=== PATIENT | female | born 1960 | race Caucasian/White ===

== ENCOUNTER 2022-10-03 08:32 | Outpatient (OUT) | payer MEDICARE, MEDICAID, SELFPAY ==
--- NOTE | 2022-10-03 08:30 | CA_ITS ---
Patient: SCOTT HERNANDEZ Exam Date: 10/03/2022 : 1960 Gender:F Ordering : DR MCKINLEY ARTEAGA M.D. Admission #: [id number] Family : RALEIGH RODRIGUEZ Order #: [id number] CLICK HERE TO VIEW EXAM ECHOCARDIOGRAM REPORT PROCEDURE: CA ECHO DOPPLER COMPLETE INDICATIONS: Interstitial lung disease, pulmonary hypertension, shortness of breath COMPARISON: None. DESCRIPTION: COMPLETE ECHOCARDIOGRAM Real-time transthoracic echocardiography with 2D, M-mode, spectral and color flow Doppler performed. QUALITY: Technically difficult due to patients condition. LEFT VENTRICLE: Normal chamber size. Normal left ventricular wall thickness. Normal systolic function. LV EF: Normal left ventricular ejection fraction, (>55%). DIASTOLIC: Normal diastolic function. ATRIAL SEPTUM: Visually appears intact. LEFT ATRIUM: Normal chamber size. RIGHT ATRIUM: Normal chamber size. RIGHT VENTRICLE: Normal chamber size. Normal right ventricular systolic function. TRICUSPID VALVE: Normal mobility and thickness. No stenosis with trivial regurgitation. No evidence of pulmonary hypertension. RVSP 29 mmHg MITRAL VALVE: Normal mobility and thickness. No evidence of mitral valve stenosis. There is no mitral annular calcification. Trivial mitral regurgitation. AORTIC VALVE: Normal trileaflet appearance. No visible sclerosis. Normal leaflet mobility. No evidence of aortic valve stenosis. No aortic regurgitation. AORTIC ROOT: Normal diameter and appearance. PULMONIC VALVE: Not well visualized. No stenosis. No regurgitation. PERICARDIUM: No evidence of pericardial effusion. IVC: Collapses with inspirations. IVC is mildly dilated (2.3 cm) PLEURA: CONCLUSION: 1. Normal left ventricular systolic function. LVEF is 55 to 60%. 2. Normal right ventricular size and systolic function. 3. No significant valvular dysfunction. 4. Normal right-sided pressures. 5. No pericardial effusion. 6. Technically difficult study with poor sound transmission. Adult Echocardiography Procedure Report Left Ventricle LVEDD (3.7 - 5.6 cm): 3.92 cm LVESD (2.2 - 4.0 cm): 2.52 cm LVIVS thickness (0.6 - 1.2 cm): 1.04 cm LVPW thickness (0.5 - 1.0 cm): 0.90 cm e': 0.09 m/s E - e': 9.92 LVOT Max Gradient: 6.52 mm[Hg] LVOT Area (cm2): 1.28 m/s Peak Velocity (LVOT): 1.28 m/s LVOT Diameter 2.05 cm Left Atrium LA Volume Index (2D A2C): 16.64 ml/m2 Left Atrium Systolic Dimension: 3.30 cm Mitral Valve MV E to A Ratio: 0.84 Mitral Valve A-Wave Peak Velocity: 1.09 m/s Mitral Valve E-Wave Peak Velocity: 0.91 m/s Right Ventricle Aorta AO Root Diam: 2.87 cm Aortic Valve AoV Area (Peak Brian): 3.38 cm2, 3.38 cm2 Peak Velocity(Antegrade Flow): 1.25 m/s Peak Gradient(Antegrade Flow): 6.27 mm[Hg] Tricuspid Valve Peak Velocity (Regurgitant Flow): 2.28 m/s Pulmonic Valve Mean Gradient: 1.34 mm[Hg], 1.44 mm[Hg] Mean Velocity: 0.52 m/s, 0.57 m/s Peak Velocity: 0.81 m/s, 0.87 m/s Peak Gradient: 3.01 mm[Hg], 2.62 mm[Hg], 2.62 mm[Hg] Right Atrium Dictated by: Hari Enciso M.D. on 10/04/2022 at 17:23 Approved by: Hari Enciso M.D. on 10/04/2022 at 17:27
== END 2022-10-03 08:33 | disposition home or self-care (01) ==
LOC: CARD 08:33
PROVIDERS: PCP Internal Medicine; Visit Provider Internal Medicine Rheumatology
DX: J84.10 Pulmonary fibrosis, unspecified (principal); I27.0 Primary pulmonary hypertension; R06.02 Shortness of breath; R06.00 Dyspnea, unspecified; M35.9 Systemic involvement of connective tissue, unspecified
CPT/HCPCS: 93306

== ENCOUNTER 2022-11-22 14:30 | Outpatient (OUT) | payer MEDICARE, MEDICAID, SELFPAY ==
--- NOTE | 2022-11-22 14:35 | CT_ITS ---
[address] [address] Patient Name: SCOTT HERNANDEZ MRN: [id number] date: 1960 Sex: F Assigned Patient Location: CT Current Patient Location: Accession/Order Number: [id number] Exam Date: 11/22/2022 14:45 Report Date: 11/23/2022 02:03 At the request of: ROSA LEDBETTER Procedure: CT chest wo con EXAMINATION: CT chest wo con HISTORY: Abnormal chest CT R93.89 COMPARISON: CT chest 11/22/2021 TECHNIQUE: Multi-planar CT images were obtained without and/or with IV contrast as indicated by examination type. Axial, Coronal, and Sagittal images. Dose reduction techniques were achieved by using automated exposure control and/or adjustment of mA and/or kV according to patient size and/or use of iterative reconstruction technique. FINDINGS: LUNGS: 2.9 x 2.6 x 1.7 cm irregularly marginated soft tissue mass within the posterior medial right upper lobe abutting the pleural surface, level of aortic arch. Stable 9 mm nodule versus scarring within lateral base of right upper lobe adjacent the minor fissure. Moderate emphysematous changes throughout the lungs. PLEURA: No mass, effusion, or pneumothorax. VASCULATURE: No abnormality. MITCH: No mass or adenopathy. MEDIASTINUM: No mass or adenopathy. CARDIAC: No enlargement, pericardial thickening, or significant calcification. AORTA: No aneurysm or dissection. CHEST WALL: No mass or axillary adenopathy. BONES: Old, healed posterior rib fractures. LIMITED ABDOMEN: No suspicious findings Limited images of the upper abdomen. OTHER: Negative. CT/CT chest wo con IMPRESSION: 1. New 2.9 cm mass within posterior medial right upper lobe adjacent the pleural surface and spine suspicious for neoplasm. 2. Stable 0.9 cm nodule or scarring within right upper lobe adjacent the minor fissure. 3. Complete clearing of the numerous previously seen small nodules/opacities. 4. Moderate emphysematous changes. 5. No lymphadenopathy. 6. Old, healed posterior rib fractures stable adjacent pleural scarring. Electronically authenticated by: SRINIVASAN KHALIL Date: 11/23/2022 02:03
== END 2022-11-22 14:31 | disposition home or self-care (01) ==
LOC: CT 14:30
PROVIDERS: PCP Internal Medicine; Visit Provider Internal Medicine Critical Care Medicine
DX: R93.89 Abnormal findings on diagnostic imaging of other specified body structures (principal)
CPT/HCPCS: 71250

== ENCOUNTER 2023-01-04 12:32 | Outpatient (OUT) | payer MEDICARE, MEDICAID, SELFPAY ==
--- NOTE | 2023-01-04 | XR_ITS ---
The [address] [address] Patient Name: SCOTT HERNANDEZ MRN: [id number] date: 1960 Sex: F Assigned Patient Location: [facility] Current Patient Location: [facility] Accession/Order Number: [id number] Exam Date: 01/04/2023 13:12 Report Date: 01/04/2023 22:16 At the request of: RALEIGH RODRIGUEZ Procedure: XR lumbar spine min 4V EXAM: XR lumbar spine min 4V HISTORY: Acute low back pain M54.50 COMPARISON: None. TECHNIQUE: 4 views lumbar spine FINDINGS: There are 5 nonrib bearing lumbar type vertebral bodies. Grade 1/2 anterolisthesis L5-S1 with pars defects at this level. Vertebral body heights are preserved. Multilevel degenerative disc disease is most severe at L5-S1. Mild facet arthrosis at the lower lumbar levels. Incidental note of aortic vascular calcification. Degenerative changes of the sacroiliac joints. Surgical clips project over the right upper quadrant. XR/XR lumbar spine min 4V IMPRESSION: Grade 1/2 anterolisthesis at L5-S1 with bilateral pars defects at this level. Multilevel degenerative disc disease most severe at L5-S1. Electronically authenticated by: RAFAEL ROSARIO Date: 01/04/2023 22:16
== END 2023-01-04 12:33 | disposition home or self-care (01) ==
LOC: RAD 12:38
PROVIDERS: PCP Internal Medicine; Visit Provider Internal Medicine
DX: M54.50 Low back pain, unspecified (principal); M51.37 Other intervertebral disc degeneration, lumbosacral region
CPT/HCPCS: 72110

== ENCOUNTER 2023-02-05 13:37 | Outpatient (OUT) | payer MEDICARE, MEDICAID, SELFPAY ==
--- NOTE | 2023-02-05 14:00 | CT_ITS ---
[address] [address] Patient Name: SCOTT HERNANDEZ MRN: [id number] date: 1960 Sex: F Assigned Patient Location: CT Current Patient Location: Accession/Order Number: [id number] Exam Date: 02/05/2023 13:50 Report Date: 02/06/2023 01:52 At the request of: ROSA LEDBETTER Procedure: CT chest wo con EXAMINATION: CT chest wo con HISTORY: Pulmonary Nodules R91.8 follow-up, chronic left flank pain COMPARISON: CT chest 11/22/2022, CT chest 11/22/2021 TECHNIQUE: Multi-planar CT images were obtained without and/or with IV contrast as indicated by examination type. Axial, Coronal, and Sagittal images. Dose reduction techniques were achieved by using automated exposure control and/or adjustment of mA and/or kV according to patient size and/or use of iterative reconstruction technique. FINDINGS: LUNGS: 3.4 x 1.8 x 3.7 cm mass versus consolidation within posterior right upper lobe adjacent the posterior chest wall. Moderate emphysematous changes bilaterally. Stable 10 mm nodule within lateral right upper lobe near minor fissure. PLEURA: No mass, effusion, or pneumothorax. VASCULATURE: No abnormality. MITCH: No mass or adenopathy. MEDIASTINUM: No mass or adenopathy. CARDIAC: No enlargement, pericardial thickening, or significant calcification. AORTA: No aneurysm or dissection. CHEST WALL: No mass or axillary adenopathy. BONES: Old healed rib fractures. No bone lesion or destructive process. LIMITED ABDOMEN: No suspicious findings Limited images of the upper abdomen. OTHER: Negative. CT/CT chest wo con IMPRESSION: 1. Stable to minimal increase in size of posterior right upper lobe mass versus consolidation. This overlies site of prior right rib fractures, but scarring is unlikely. Consider PET imaging for further evaluation. Electronically authenticated by: SRINIVASAN KHALIL Date: 02/06/2023 01:52
== END 2023-02-05 13:38 | disposition home or self-care (01) ==
LOC: CT 13:37
PROVIDERS: PCP Internal Medicine; Visit Provider Internal Medicine Critical Care Medicine
DX: R91.8 Other nonspecific abnormal finding of lung field (principal)
CPT/HCPCS: 71250

== ENCOUNTER 2023-02-05 13:38 | Outpatient (OUT) | payer MEDICARE, MEDICAID, SELFPAY ==
--- NOTE | 2023-02-05 14:00 | CT_ITS ---
The [address] [address] Patient Name: SCOTT HERNANDEZ MRN: [id number] date: 1960 Sex: F Assigned Patient Location: CT Current Patient Location: CT Accession/Order Number: [id number] Exam Date: 02/05/2023 13:50 Report Date: 02/05/2023 14:28 At the request of: DARSHAN MENDENHALL Procedure: CT abdomen pelvis wo con CT abdomen pelvis wo con, 02/05/2023 1:50 PM EDT INDICATION: History Of Kidney Stones Z87.442 COMPARISON: Prior CT of abdomen dated 03/24/2019. TECHNIQUE: Axial images of the abdomen were obtained after the administration of IV contrast. Multiplanar reformatted images were generated and reviewed as needed. Dose reduction techniques were achieved by using automated exposure control and/or adjustment of mA and/or kV according to patient size and/or use of iterative reconstruction technique. FINDINGS: Lungs: Right lower lobe dependent atelectasis is noted. Otherwise, the base of lungs is clear. No pleural effusion is noted. Liver and gallbladder: The liver is unremarkable. There is status post cholecystectomy. No enlargement of intra or extrahepatic biliary ducts. Genitourinary system: No hydronephrosis. No nephrolithiasis. No abnormality of the urinary bladder is noted. Other solid abdominal organs: adrenal glands, pancreas, and spleen are unremarkable. Aorta: The infrarenal abdominal aorta is nonaneurysmal. Free fluid: There is no free fluid in the abdomen pelvis. Lymph node: No lymph node enlargement by size criteria is noted. Stomach and Bowel: No abnormality of the stomach is noted. No abnormality of small or large bowel is noted. There is status post rectosigmoid surgery. Appendix is normal. A diverticulum within the fourth segment of duodenum is noted. Bone: There is no suspicious osteolytic or osteoblastic lesion. There is diffuse demineralization of bone. There is grade 1 anterolisthesis of L5 on S1. CT/CT abdomen pelvis wo con IMPRESSION: No nephrolithiasis. No significant abnormality to explain symptoms of the patient. Electronically authenticated by: VICENTA CHE Date: 02/05/2023 14:28
== END 2023-02-05 13:39 | disposition home or self-care (01) ==
LOC: CT 13:38
PROVIDERS: PCP Internal Medicine; Visit Provider Physician Assistant
DX: R91.8 Other nonspecific abnormal finding of lung field (principal); Z87.442 Personal history of urinary calculi
CPT/HCPCS: 71250; 74176

== ENCOUNTER 2023-05-27 10:53 | Outpatient (OUT) | payer MEDICARE, MEDICAID, SELFPAY ==
--- NOTE | 2023-05-27 10:56 | MM_ITS ---
Patient Name: SCOTT HERNANDEZ MR#: [id number] : 1960 Exam Date: 05/27/2023 Ordering Doctor: DR RALEIGH RODRIGUEZ RADIOLOGY REPORT PROCEDURE: MM TOMOSYNTHESIS SCREENING BI COMPARISON: MG MAMM SCREEN 3D SAHARA CAD, 03/27/2022. MG MAMM SAHARA SCRN W CAD DIG, 03/11/2015. INDICATIONS: Screening Calculator Name NCI Breast Cancer Risk Assessment Tool 5 Year Breast Cancer Risk 1.60% Lifetime Breast Cancer Risk 6.60% Personal Breast Cancer No Personal Ovarian Cancer No Treatments Rt Lower Lobectomy 2010 Family Cancers Father with lung cancer at age 79; Grandmother-maternal with lung/brain cancer at age ~58; Grandfather-maternal with lung/brain cancer at age ~62. LOCATION: [facility] BREAST COMPOSITION: Scattered areas fibroglandular density. FINDINGS: DIAGNOSTIC CATEGORY 2--BENIGN FINDING: RIGHT BREAST: No significant suspicious finding. Scattered benign-appearing calcifications are present. No significant change has occurred. LEFT BREAST: No significant suspicious finding. Scattered benign-appearing calcifications are present. No significant change has occurred. RECOMMENDATIONS: ROUTINE MAMMOGRAM AND CLINICAL EVALUATION IN 12 MONTHS. PLEASE NOTE: A NORMAL MAMMOGRAM DOES NOT EXCLUDE THE POSSIBILITY OF BREAST CANCER. A CLINICALLY SUSPICIOUS PALPABLE LUMP SHOULD BE BIOPSIED. Dictated by: Fausto Nogueira M.D. on 05/29/2023 at 15:51 Approved by: Fausto Nogueira M.D. on 05/29/2023 at 15:54
--- OUTSIDE RECORDS SUMMARY | 2023-05-27 11:11 | XMS_ITS | CCD ---
Author Name Unknown Address [address] [place] [address] Organization [facility] Care Team Providers Care Machine Shop Inspector Name Role Phone Usman Cabrales Unavailable Mau Ortiz Unavailable MD Demarcus Del Valle Primary Care Provider MD Raleigh Villatoro Attending Provider [phone] IFEANYI, DR STOREY Admitting Unavailable IFEANYI, DR STOREY Attending Unavailable IFEANYI, DR STOREY Primary Care Unavailable SIMRAN, DR SRINIVASAN Garcia Consulting Unavailable IFEANYI, DR STOREY Consulting Unavailable REQUEST, DR MUNROE LISTED Primary Care Unavaila ble PEPITO, OFELIA COBURN Consulting Unavailable EMILIANA, REA Admitting Unavailable EMILIANA, REA Attending Unavailable ZAINAB, DR TRACY Consulting Unavailable SHERICE DAVIS Consulting Unavailable IFEANYI, DR STOREY Admitting Unavailable IFEANYI, DR STOREY Attending Unavailable REQUEST, DR MUNROE LISTED Primary Care Unavaila silvia DEL VALLE, DR TRACY Admitting Unavailable ZAINAB, DR TRACY Attending Unavailable REQUEST, NONE LISTED Primary Care Unavaila ble CARLYLE, DR RUSH Gomez Consulting Unavailable ZAINAB, DR TRACY Consulting Unavailable DIANA, DR ROSA Venegas Admitting Loren ORTIZ, DR ROSA Venegas Attending Loren SUGGS, DR STOREY Primary Care Unavailable SIMRAN, DR SRINIVASAN Garcia Consulting Unavailable DIANA, DR ROSA Venegas Consulting MD Demarcus Hutson Primary Care Provider MD Raleigh Villatoro Attending Provider NON STAFF Primary Care Provider SHRUTHI Conway Emergency Provider MD Phong Marquez Attending Provider NON STAFF Primary Care Provider Unavailsandra e MD Raleigh Suggs Attending Provider PRINCESS Gates Attending Provider SHRUTHI Melendrez Attending Provider [phone] Colleen Melendrez Unavailable RALEIGH SUGGS Primary Care Physician Luanne Coffey Unavailable Unavailable ALLIE MENDENHALL Attending Unavailable RALEIGH SGUGS Attending Unavailable HILL, RALEIGH Samuels Referring Unavailable HILL, RALEIGH Samuels Referring Unavailable HILL, RALEIGH L Referring Unavailable HILL, RALEIGH Samuels Referring Unavailable TOMI HILLMAN Attending Unavailable TOMI HILLMAN Referring Unavailable Raleigh Suggs MD Primary Care Provider [phone] Diana GONZALES, Mau Unavailable [phone] Brian Marquez MD Unavailable [phone] MD Raleigh Suggs Primary Care Provider [phone] MD Raleigh Suggs Attending Provider Maruqez, Brian Admitting Unavailable Marquez, Brian Attending Unavailable NON STAFF Primary Care Unavailable Marquez, Brian Admitting Unavailable Marquez, Brian Attending Unavailable NON STAFF Primary Care Unavailable Ifeanyi, Raleigh Admitting Unavailable Raleigh Suggs Attending Unavailable NON STAFF Primary Care Unavailable RyanneeMichelle N Admitting Unavailable SaffleMichelle Attending Unavailable NON STAFF Primary Care Unavailable Raleigh Suggs Admitting Unavailable Raleigh Suggs Attending Unavailable NON STAFF Primary Care Unavailable Debo Gates Admitting Unavailable Debo Gates Attending Unavailable NON STAFF Primary Care Unavailable Colleen Melendrez Attending Unavailable Colleen Melendrez Admitting Unavailable Raleigh Suggs Admitting Unavailable Raleigh Suggs Primary Care Unavailable Raleigh Suggs Attending Unavailable Allergies Allergy Classification Reported Allergen(s) Allergy Type Date of Onset Reaction(s) Facility (7 sources) Acetaminophen / oxyCODONE Drug Allergy Unknown [facility] Other (13 sources) Ciprofloxacin Drug Allergy 09-15-19 [facility] (13 sources) metroNIDAZOLE Drug Allergy 09-15-19 Other [facility] Other (15 sources) Morphine; Translations: [morphine] Drug Allergy 09-15-19 Other [facility] (8 sources) Nicotine Drug Allergy 03-05-20 Couldn't talk [facility] (13 sources) oxyCODONE Drug Allergy 09-15-19 Other [facility] Other (8 sources) Sulfacetamide Drug Allergy 03-05-20 Unknown [facility] (9 sources) Sulfonamides (Antibiotic); Translations: [Sulfa (Sulfonamide Antibiotics)] Propensity to adverse reactions 03-05-20 Unknown [facility] (8 sources) Acetaminophen; Translations: [acetaminophen] Drug Allergy 03-24-20 19 Unknown Reaction [facility] (8 sources) Propoxyphene; Translations: [propoxyphene] Drug Allergy 03-24-20 19 Unknown Reaction [facility] (2 sources) Acetaminophen / oxyCODONE Drug Allergy 01-05-[address] [facility] (2 sources) Ciprofloxacin Drug Allergy 05-16-[address] [facility] (2 sources) Corticosteroids Drug allergy (disorder) 03-06-[address] [facility] (2 sources) metroNIDAZOLE Drug Allergy 01-05-[address] [facility] (2 sources) Morphine Drug Allergy 01-05-[address] [facility] (2 sources) Penicillins Drug allergy (disorder) 12-21-[address] [facility] (8 sources) Substance with sulfonamide structure and antibacterial mechanism of action (substance) Drug allergy 09-15-19 Rash, Itching, Nausea Only [facility] (2 sources) Sulfonamides (Antibiotic); Translations: [sulfa drugs] Drug allergy Nausea (finding), Itching (finding) [facility] (5 sources) gabapentin Drug Allergy 09-15-19 Rash [facility] (5 sources) Pregabalin Allergy to substance 09-15-19 [facility] (1 source) Ciprofloxacin Drug Allergy 03-05-20 [facility] (1 source) metroNIDAZOLE Drug Allergy 03-05-20 [facility] (1 source) Morphine Drug Allergy 03-05-20 [facility] (1 source) Nicotine Drug Allergy 03-05-20 [facility] (1 source) oxyCODONE Drug Allergy 03-05-20 [facility] (1 source) Sulfacetamide Drug Allergy 03-05-20 [facility] Medications Current Medications Medication Drug Class(es) Dates Sig (Normalized) Sig (Original) acetaminophen 325 mg oral tablet (7 sources) take 1 tablet by mouth every four hours Tylenol 325 MG 1 tablet as needed Orally every 4 hrs Active acetaminophen 325 mg / HYDROcodone bitartrate 5 mg oral tablet (19 sources) Opioid Agonist Start: 04-23-2023 End: 06-20-2023 take 1 tablet by mouth every eight hours for pain HYDROcodone-acetamin ophen (Merrick) 5-325 MG tablet Indications: Primary osteoarthritis involving multiple joints Take 1 tablet by mouth every 8 (eight) hours if needed for severe pain 90 tablet 0 05/21/2023 06/20/2023 Active Start: 07-25-2022 take 1 tablet by hodan th every six hours Hydrocodone-Acetaminophen Active 1 TAB P O Q6H July 24, 2022 11:00pm Start: 05-03-2010 Vicodin 5/500, Oral, q4hr as needed for pain, 40 tab(s), Refill(s) 0 Start Date: 05/03/10 Status: Ordered ALPRAZolam 0.5 mg oral tablet (13 sources) Benzodiazepine Start: 12-24-2022 take 1 tablet by mouth once daily as needed for anxiety ALPRAZolam (Xanax) 0.5 MG tablet Indications: Generalized anxiety disorder (CMS/HCC) Take 1 tablet (0.5 mg) by mouth Daily as needed for anxiety. 30 tablet 0 12/24/2022 Active Start: 04-14-2010 take 1 tablet by hodan th three times daily as needed for anxiety Xanax 0.5 mg Tab 0.5 mg = 1 tab(s), Oral, TID, PRN as needed for anxiety, tab(s), Refills(s) 0 Start Date: 04/14/10 Status: Ordered take 1 tablet by hodan th every twelve hours Xanax 0.5 MG 1 tablet Orally Twice a day PRN Active aspirin 81 mg delayed release oral tablet (5 sources) Platelet Aggregation Inhibitor, Nonsteroidal Anti-inflammatory Drug take 1 tablet by mouth in the morning aspirin 81 MG EC tablet Take 81 mg by mouth in the morning. 0 Active calcium carbonate 500 mg oral tablet (5 sources) Start: 2023 take 500 mg by mouth in the morning Calcium Carbonate (CALCIUM 500 PO) Indications: Osteopenia Take 500 mg by mouth in the morning and 500 mg before bedtime. 0 05/09/2023 Active cephalexin 500 mg oral capsule (2 sources) Cephalosporin Antibacterial Start: 2022 take 1 capsule by mouth every eight hours Cephalexin 500 MG 1 capsule Orally every 8 hrs for 7 13 Jan, 2023 Active cholecalciferol 0.025 mg oral capsule (5 sources) Vitamin D Start: 2023 take 1 capsule by mouth in the morning cholecalciferol (Vitamin D-3) 25 MCG (1000 UT) capsule Take 1,000 Units by mouth in the morning. 0 05/09/2023 Active furosemide 20 mg oral tablet (5 sources) Loop Diuretic Start: 2022 take 1 tablet by mouth once daily as needed for edema furosemide (Lasix) 20 MG tablet Indications: Bilateral lower extremity edema Take 1 tablet (20 mg) by mouth Daily as needed (take as needed for edema). 30 tablet 3 12/18/2022 Active loratadine 10 mg oral tablet (12 sources) loratadine (Claritin) 10 MG tablet 1 (one) time each day at the same time. 0 Active microencapsulated potassium chloride 10 meq extended release oral tablet (5 sources) Start: 2022 take 1 tablet by mouth once daily as needed for edema potassium chloride CR (Klor-Con M10) 10 MEQ ER tablet Indications: Bilateral lower extremity edema Take 1 tablet (10 mEq) by mouth Daily as needed (take as needed for edema). Do not crush or chew. 30 tablet 3 12/18/2022 Active vitamin b12 1 mg oral capsule (10 sources) Vitamin B12 Start: 2022 take 1 capsule by mouth once daily Cyanocobalamin 1000 MCG capsule Indications: Vitamin B12 deficiency Take 1,000 mcg by mouth 1 (one) time each day at the same time. 0 12/18/2022 Active Start: 07-25-2022 take 1 tablet by hodan th once daily Cyanocobalamin (Vitamin B-12) (Vitamin B-12) 50 mcg Tablet Active 50 MCG PO Daily July 24, 2022 11:00pm Problems Active Problems Problem Classification Problem Date Documented Da te Episodic/Chronic Anxiety disorders (6 sources) Anxiety; Translations: [Generalized anxiety disorder] Onset: 09-14-2022 01-22-2023 Chronic Calculus of urinary tract (7 sources) History of calculus of kidney; Translations: [Personal history of urinary calculi] Onset: 01-22-2023 Episodic Cancer of bronchus; lung (6 sources) Malignant tumor of lung; Translations: [Non-small cell lung cancer] Onset: 03-30-2023 01-22-2023 Chronic Chronic obstructive pulmonary disease and bronchiectasis (5 sources) Chronic obstructive lung disease; Translations: [Chronic obstructive pulmonary disease, unspecified] Onset: 09-14-2022 09-14-2022 Chronic Disorders of lipid metabolism (5 sources) Pure hypercholesterolemi a; Translations: [Pure hypercholesterolemi a, unspecified] Onset: 09-14-2022 09-14-2022 Chronic Genitourinary symptoms and ill-defined conditions (3 sources) Dysuria; Translations: [Urine screening abnormal] Onset: 08-28-2021 Resolved: 08-28-2021 Episodic Hepatitis (3 sources) Viral hepatitis C; Translations: [Unspecified viral hepatitis C without hepatic coma] Episodic Malaise and fatigue (5 sources) Chronic fatigue syndrome; Translations: [Chronic fatigue syndrome] Onset: 09-17-2022 Resolved: 12-14-2022 12-14-2022 Chronic Osteoarthritis (7 sources) Degenerative joint disease involving multiple joints; Translations: [Polyosteoarthritis , unspecified] Onset: 09-14-2022 05-21-2023 Chronic Other acquired deformities (3 sources) Acquired spondylolisthesis; Translations: [Spondylolysis, lumbosacral region] Episodic Other connective tissue disease (5 sources) Polymyalgia rheumatica; Translations: [Polymyalgia rheumatica] Onset: 09-14-2022 09-14-2022 Chronic Other diseases of bladder and urethra (1 source) Male urethral stricture; Translations: [Unspecified urethral stricture, male, unspecified site] Onset: 01-22-2023 Episodic Other diseases of bladder and urethra (1 source) Urethral stricture 01-22-2023 Episodic Other gastrointestinal disorders (3 sources) Abnormal frequency of defecation; Translations: [Change in bowel habit] Episodic Other gastrointestinal disorders (3 sources) Urgent desire for stool; Translations: [Fecal urgency] Episodic Other gastrointestinal disorders (3 sources) Diarrhea; Translations: [Diarrhea, unspecified] Episodic Other liver diseases (5 sources) Non-alcoholic fatty liver; Translations: [Fatty (change of) liver, not elsewhere classified] Onset: 03-30-2023 03-30-2023 Chronic Other lower respiratory disease (2 sources) Other nonspecific abnormal finding of lung field; Translations: [OTH NONSPECIFIC ABN FIND LNG FIELD] Onset: 06-05-2021 Episodic Other nutritional; endocrine; and metabolic disorders (5 sources) Morbid obesity; Translations: [Morbid (severe) obesity due to excess calories] Onset: 09-14-2022 09-14-2022 Chronic Other screening for suspected conditions (not mental disorders or infectious disease) (13 sources) Tomography - chest abnormal; Translations: [Abnormal findings on diagnostic imaging of other specified body structures] Onset: 09-06-2021 Resolved: 11-29-2021 Chronic Other screening for suspected conditions (not mental disorders or infectious disease) (4 sources) Encounter for screening mammogram for malignant neoplasm of breast; Translations: [ENC SCR MAMMO MALIG NEOPLASM BREAST] Onset: 03-27-2022 Episodic Residual codes; unclassified (1 source) Family history of malignant neoplasm of trachea, bronchus and lung; Translations: [FAM HX MALIG NEOPLSM TRACH BRON LNG] Onset: 04-04-2022 Episodic Residual codes; unclassified (1 source) Family history of malignant neoplasm of other organs or systems; Translations: [FAM HX MALIG NEOPLASM OTH ORGN/SYS] Onset: 04-04-2022 Episodic Spondylosis; intervertebral disc disorders; other back problems (2 sources) Spondylosis without myelopathy or radiculopathy, cervical region; Translations: [Spondylosis without myelopathy or radiculopathy, thoracic region] Onset: 06-05-2021 Chronic Past or Other Problems Problem Classification Problem Date Documented Da te Episodic/Chronic Abdominal pain (6 sources) Stomach cramps; Translations: [Unspecified abdominal pain] Onset: 01-18-2023 Episodic Complications of surgical procedures or medical care (5 sources) Complication of surgical procedure; Translations: [Unspecified complication of procedure, initial encounter] Onset: 09-17-2022 Resolved: 12-14-2022 12-14-2022 Episodic Deficiency and other anemia (5 sources) Pernicious anemia; Translations: [Vitamin B12 deficiency anemia due to intrinsic factor deficiency] Onset: 09-17-2022 09-17-2022 Episodic Immunizations and screening for infectious disease (4 sources) Hepatitis C antibody test positive; Translations: [Other specified abnormal immunological findings in serum] Onset: 07-30-2022 Episodic Mood disorders (5 sources) Mood disorders Onset: 04-03-2023 04-03-2023 Nonspecific chest pain (1 source) Other chest pain; Translations: [OTHER CHEST PAIN] Onset: 06-05-2021 Episodic Nutritional deficiencies (6 sources) Cobalamin deficiency; Translations: [Deficiency of other specified B group vitamins] Onset: 09-14-2022 09-14-2022 Episodic Other aftercare (1 source) Other terminal operations supervisor (current) drug therapy; Translations: [Other terminal operations supervisor (current) drug therapy] Onset: 11-16-2022 Episodic Other bone disease and musculoskeletal deformities (1 source) Other specified disorders of bone, unspecified site; Translations: [OTHER SPEC DISORDERS BONE UNS SITE] Onset: 06-05-2021 Episodic Other connective tissue disease (1 source) Arthrodesis status; Translations: [ARTHRODESIS STATUS] Onset: 06-05-2021 Episodic Other connective tissue disease (1 source) Other specified soft tissue disorders; Translations: [Other specified soft tissue disorders] Onset: 07-25-2022 Episodic Other lower respiratory disease (3 sources) Pleurodynia; Translations: [PLEURODYNIA] Onset: 06-01-2021 Episodic Other lower respiratory disease (5 sources) Shortness of breath; Translations: [SHORTNESS OF BREATH] Onset: 06-01-2021 Episodic Other nervous system disorders (5 sources) Impairment of balance; Translations: [Other abnormalities of gait and mobility] Onset: 09-17-2022 Resolved: 12-14-2022 12-14-2022 Episodic Residual codes; unclassified (5 sources) History of lung lobectomy; Translations: [Acquired absence of lung [part of]] Onset: 09-17-2022 Resolved: 12-14-2022 12-14-2022 Episodic Residual codes; unclassified (1 source) Edema, unspecified; Translations: [Edema, unspecified] Onset: 11-16-2022 Episodic Spondylosis; intervertebral disc disorders; other back problems (1 source) Pain in thoracic spine; Translations: [PAIN IN THORACIC SPINE] Onset: 06-05-2021 Episodic Unclassified (5 sources) Lower extremity edema 07-25-2022 Urinary tract infections (1 source) Acute cystitis with hematuria Onset: 08-28-2021 Resolved: 08-28-2021 Episodic Results Test Name Value Interpretation Reference Range Facility Alanine aminotransferase [En zymatic activity/volume] in Serum or PlasmaOrdered By: Raleigh Suggs on 05-23-2023 ALT [Catalytic activity/Vol] 14 U/L 7-52 [facility] Albumin [Mass/volume] in Ser um or Plasma by Bromocresol green (BCG) dye binding methoOrdered By: Raleigh Suggs on 05-23-2023 Albumin BCG dye [Mass/Vol] 4.3 g/dL 3.5-5.7 [facility] Alkaline phosphatase [Enzyma tic activity/volume] in Serum or PlasmaOrdered By: Raleigh Suggs on 05-23-2023 ALP [Catalytic activity/Vol] 90 U/L 34-104 [facility] Aspartate aminotransferase [ Enzymatic activity/volume] in Serum or PlasmaOrdered By: Raleigh Suggs on 05-23-2023 AST [Catalytic activity/Vol] 17 U/L 13-39 [facility] Basophils Auto (Bld) [#/Vol] Ordered By: Raleigh Suggs on 05-23-2023 Basophils (Bld) [#/Vol] 0.1 10*3/uL 0.0-0.2 [facility] Basophils/100 WBC Auto (Bld) Ordered By: Raleigh Suggs on 05-23-2023 Basophils/100 WBC (Bld) 1.0 % . [facility] Bilirubin.total [Mass/volume ] in Serum or PlasmaOrdered By: Raleigh Suggs on 05-23-2023 Bilirubin [Mass/Vol] 0.5 mg/dL 0.3-1.0 [facility] C reactive protein [Mass/vol ume] in Serum or PlasmaOrdered By: Raleigh Suggs on 05-23-2023 CRP [Mass/Vol] 1.1 mg/dL 0.0-0.5 [facility] C-Reactive Proteinon 024 C-Reactive Protein 1.1 mg/dL High 0.0-0.5 [facility] Comment on above: Performed By: #### C 4, THYGLOB AB, CHROMATIN, ALANNA, CH50, TPO, C3 #### [facility] , CBC W Auto Differential pane l (Bld)on 05-23-2023 Basophils (Bld) [#/Vol] 0.1 10*3/uL 0.0 - 0.2 10*3/uL [facility] Basophils/100 WBC Manual cnt (Syn fld) 1.0 % . [facility] Eosinophils (Bld) [#/Vol] 0.1 10*3/uL 0.0 - 0.45 10*3/uL [facility] Eosinophils/100 WBC Manual cnt (Syn fld) 1.9 % . [facility] Erythrocyte distribution width (RBC) [Ratio] 14.2 % 11.9 - 15.3 % [facility] Hematocrit (Bld) [Volume fraction] 39.1 % 34.0 - 46.4 % [facility] Hemoglobin (Bld) [Mass/Vol] 13.0 g/dL 11.8 - 15.4 g/dL [facility] Lymphocytes (Bld) [#/Vol] 1.7 10*3/uL 1.00 - 4.8 10*3/uL [facility] Lymphocytes/100 WBC Manual cnt (Syn fld) 29.8 % . [facility] MCH (RBC) [Entitic mass] 30.1 pg 24.7 - 34.3 pg [facility] MCHC (RBC) [Mass/Vol] 33.3 g/dL 32.0 - 35.0 g/dL [facility] MCV (RBC) [Entitic vol] 90.5 fL 80 - 100 fL [facility] Monocytes (Bld) [#/Vol] 0.5 10*3/uL 0.0 - 0.8 10*3/uL [facility] Monocytes+Macrophages/1 00 WBC Manual cnt (Syn fld) 9.3 % . [facility] Neutrophils (Bld) [#/Vol] 3.4 10*3/uL 1.8 - 7.7 10*3/uL [facility] Neutrophils/100 WBC Manual cnt (Syn fld) 58.0 % . [facility] NRBC 0.1 /100{WBC} 0 - 0.5 /100{WBC} [facility] Platelet mean volume (Bld) [Entitic vol] 8.9 fL 6.3 - 10.7 fL [facility] Platelets (Bld) [#/Vol] 240 10*3/uL 150 - 450 10*3/uL [facility] RBC LM.HPF (Urine sed) [#/Area] 4.32 /[HPF] 3.60 - 5.00 [facility] WBC (Bld) [#/Vol] 5.9 10*3/uL 3.8 - 11.6 10*3/uL [facility] WBC LM.HPF (Urine sed) [#/Area] 5.9 10*3/uL 3.8 - 11.6 10*3/uL [facility] Calcium [Mass/volume] in Ser um or PlasmaOrdered By: Raleigh Suggs on 05-23-2023 Calcium [Mass/Vol] 9.3 mg/dL 8.6-10.3 [facility] Carbon dioxide, total [Moles /volume] in Serum or PlasmaOrdered By: Raleigh Suggs on 05-23-2023 CO2 [Moles/Vol] 32.5 mmol/L 21.0-31.0 [facility] Chloride [Moles/volume] in S kimberly or PlasmaOrdered By: Raleigh Suggs on 05-23-2023 Chloride [Moles/Vol] 103 mmol/L 98-107 [facility] Cholesterol [Mass/volume] in Serum or PlasmaOrdered By: Raleigh Suggs on 05-23-2023 Cholesterol [Mass/Vol] 166 mg/dL 140-200 [facility] Comment on above: Chol less than 200 m g/dl low riskChol 201-239 mg/dl borderline riskChol 240 mg/dl and greater high risk Cholesterol in LDL Calc [Mas s/Vol]Ordered By: Raleigh Suggs on 05-23-2023 Cholesterol in LDL [Mass/Vol] 82 mg/dL 0-100 [facility] Comment on above: LDL ATP III CLASSIFI CATIONLDL less than 100 mg/dL OptimalLDL 100-129 mg/dL Near or above optimalLDL 130-159 mg/dL Borderline highLDL 160-189 mg/dL HighLDL greater than 189 mg/dL Very high Cholesterol in VLDL Calc [Ma ss/Vol]Ordered By: Raleigh Suggs on 05-23-2023 Cholesterol in VLDL [Mass/Vol] 19 mg/dL [facility] Complete Blood Count Auto Di ffon 05-23-2023 Basophils (Bld) [#/Vol] 0.1 10*3/uL Normal 0.0-0.2 [facility] Comment on above: Result Comment: PERF ORMED BY: [facility] [place] [address] PATHOLOGIST SUPERVISOR MODEL MAKING GUEVARA BRUNO M.D. Performed By: #### C 4, THYGLOB AB, CHROMATIN, ALANNA, CH50, TPO, C3 #### [facility] , Basophils/100 WBC (Bld) 1.0 % Normal . [facility] Comment on above: Performed By: #### C 4, THYGLOB AB, CHROMATIN, ALANNA, CH50, TPO, C3 #### [facility] , Eosinophils (Bld) [#/Vol] 0.1 10*3/uL Normal 0.0-0.45 [facility] Comment on above: Performed By: #### C 4, THYGLOB AB, CHROMATIN, ALANNA, CH50, TPO, C3 #### [facility] , Eosinophils/100 WBC (Bld) 1.9 % Normal . [facility] Comment on above: Performed By: #### C 4, THYGLOB AB, CHROMATIN, ALANNA, CH50, TPO, C3 #### [facility] , Erythrocyte distribution width (RBC) [Ratio] 14.2 % Normal 11.9-15.3 [facility] Comment on above: Performed By: #### C 4, THYGLOB AB, CHROMATIN, ALANNA, CH50, TPO, C3 #### [facility] , Hematocrit (Bld) [Volume fraction] 39.1 % Normal 34.0-46.4 [facility] Comment on above: Performed By: #### C 4, THYGLOB AB, CHROMATIN, ALANNA, CH50, TPO, C3 #### [facility] , Hemoglobin (Bld) [Mass/Vol] 13.0 g/dL Normal 11.8-15.4 [facility] Comment on above: Performed By: #### C 4, THYGLOB AB, CHROMATIN, ALANNA, CH50, TPO, C3 #### [facility] , Lymphocytes (Bld) [#/Vol] 1.7 10*3/uL Normal 1.00-4.8 [facility] Comment on above: Performed By: #### C 4, THYGLOB AB, CHROMATIN, ALANNA, CH50, TPO, C3 #### [facility] , Lymphocytes/100 WBC (Bld) 29.8 % Normal . [facility] Comment on above: Performed By: #### C 4, THYGLOB AB, CHROMATIN, ALANNA, CH50, TPO, C3 #### [facility] , MCH (RBC) [Entitic mass] 30.1 pg Normal 24.7-34.3 [facility] Comment on above: Performed By: #### C 4, THYGLOB AB, CHROMATIN, ALANNA, CH50, TPO, C3 #### [facility] , MCV (RBC) [Entitic vol] 90.5 fL Normal 80-100 [facility] Comment on above: Performed By: #### C 4, THYGLOB AB, CHROMATIN, ALANNA, CH50, TPO, C3 #### [facility] , Mean Corpuscular HGB Conc 33.3 g/dL Normal 32.0-35.0 [facility] Comment on above: Performed By: #### C 4, THYGLOB AB, CHROMATIN, ALANNA, CH50, TPO, C3 #### [facility] , Monocytes (Bld) [#/Vol] 0.5 10*3/uL Normal 0.0-0.8 [facility] Comment on above: Performed By: #### C 4, THYGLOB AB, CHROMATIN, ALANNA, CH50, TPO, C3 #### [facility] , Monocytes/100 WBC (Bld) 9.3 % Normal . [facility] Comment on above: Performed By: #### C 4, THYGLOB AB, CHROMATIN, ALANNA, CH50, TPO, C3 #### [facility] , Neutrophils (Bld) [#/Vol] 3.4 10*3/uL Normal 1.8-7.7 [facility] Comment on above: Performed By: #### C 4, THYGLOB AB, CHROMATIN, ALANNA, CH50, TPO, C3 #### [facility] , Neutrophils/100 WBC (Bld) 58.0 % Normal . [facility] Comment on above: Performed By: #### C 4, THYGLOB AB, CHROMATIN, ALANNA, CH50, TPO, C3 #### [facility] , NRBC% 0.1 /100{WBC} Normal 0-0.5 [facility] Comment on above: Performed By: #### C 4, THYGLOB AB, CHROMATIN, ALANNA, CH50, TPO, C3 #### [facility] , Platelet mean volume (Bld) [Entitic vol] 8.9 fL Normal 6.3-10.7 [facility] Comment on above: Performed By: #### C 4, THYGLOB AB, CHROMATIN, ALANNA, CH50, TPO, C3 #### [facility] , Platelets (Bld) [#/Vol] 240 10*3/uL Normal 150-450 [facility] Comment on above: Performed By: #### C 4, THYGLOB AB, CHROMATIN, ALANNA, CH50, TPO, C3 #### [facility] , RBC (Bld) [#/Vol] 4.32 10*6/uL Normal 3.60-5.00 [facility] Comment on above: Performed By: #### C 4, THYGLOB AB, CHROMATIN, ALANNA, CH50, TPO, C3 #### [facility] , WBC (Bld) [#/Vol] 5.9 10*3/uL Normal 3.8-11.6 [facility] Comment on above: Performed By: #### C 4, THYGLOB AB, CHROMATIN, ALANNA, CH50, TPO, C3 #### [facility] , Comprehensive Metabolic Pane rosmery 05-23-2023 Albumin [Mass/Vol] 4.3 g/dL Normal 3.5-5.7 [facility] Comment on above: Performed By: #### C 4, THYGLOB AB, CHROMATIN, ALANNA, CH50, TPO, C3 #### [facility] , Albumin/Globulin [Mass ratio] 1.5 {ratio} Normal [facility] Comment on above: Performed By: #### C 4, THYGLOB AB, CHROMATIN, ALANNA, CH50, TPO, C3 #### [facility] , ALP [Catalytic activity/Vol] 90 U/L Normal 34-104 [facility] Comment on above: Result Comment: PERF ORMED BY: [facility] [address] [place] [address] PATHOLOGIST SUPERVISOR [employer]KING GUEVARA BRUNO M.D. Performed By: #### C 4, THYGLOB AB, CHROMATIN, ALANNA, CH50, TPO, C3 #### [facility] , ALT [Catalytic activity/Vol] 14 U/L Normal 7-52 [facility] Comment on above: Performed By: #### C 4, THYGLOB AB, CHROMATIN, ALANNA, CH50, TPO, C3 #### [facility] , Anion gap [Moles/Vol] 11.0 mmol/L Normal 6.0-15.0 [facility] Comment on above: Performed By: #### C 4, THYGLOB AB, CHROMATIN, ALANNA, CH50, TPO, C3 #### [facility] , AST [Catalytic activity/Vol] 17 U/L Normal 13-39 [facility] Comment on above: Performed By: #### C 4, THYGLOB AB, CHROMATIN, ALANNA, CH50, TPO, C3 #### [facility] , Bilirubin [Mass/Vol] 0.5 mg/dL Normal 0.3-1.0 [facility] Comment on above: Performed By: #### C 4, THYGLOB AB, CHROMATIN, ALANNA, CH50, TPO, C3 #### [facility] , Calcium [Mass/Vol] 9.3 mg/dL Normal 8.6-10.3 [facility] Comment on above: Performed By: #### C 4, THYGLOB AB, CHROMATIN, ALANNA, CH50, TPO, C3 #### [facility] , Chloride [Moles/Vol] 103 mmol/L Normal 98-107 [facility] Comment on above: Performed By: #### C 4, THYGLOB AB, CHROMATIN, ALANNA, CH50, TPO, C3 #### [facility] , CO2 [Moles/Vol] 32.5 mmol/L High 21.0-31.0 [facility] Comment on above: Performed By: #### C 4, THYGLOB AB, CHROMATIN, ALANNA, CH50, TPO, C3 #### [facility] , Creatinine [Mass/Vol] 0.65 mg/dL Normal 0.60-1.20 [facility] Comment on above: Performed By: #### C 4, THYGLOB AB, CHROMATIN, ALANNA, CH50, TPO, C3 #### [facility] , GFR/1.73 sq M.predicted MDRD (S/P/Bld) [Vol rate/Area] mL/min/{1.73_m2} Normal [facility] Comment on above: Performed By: #### C 4, THYGLOB AB, CHROMATIN, ALANNA, CH50, TPO, C3 #### [facility] , Globulin (S) [Mass/Vol] 2.8 g/dL Normal [facility] Comment on above: Performed By: #### C 4, THYGLOB AB, CHROMATIN, ALANNA, CH50, TPO, C3 #### [facility] , Glucose [Mass/Vol] 82 mg/dL Normal 70-100 [facility] Comment on above: Result Comment: [place] Glucose Reference Range is dependent on time and content of last meal. Glucose of more than 200 mg/dL in a nonstressed, ambulatory subject supports the diagnosis of Diabetes Mellitus. ADA recommended reference range Performed By: #### C 4, THYGLOB AB, CHROMATIN, ALANNA, CH50, TPO, C3 #### [facility] , Potassium [Moles/Vol] 4.5 mmol/L Normal 3.5-5.1 [facility] Comment on above: Performed By: #### C 4, THYGLOB AB, CHROMATIN, ALANNA, CH50, TPO, C3 #### [facility] , Protein [Mass/Vol] 7.1 g/dL Normal 6.4-8.9 [facility] Comment on above: Performed By: #### C 4, THYGLOB AB, CHROMATIN, ALANNA, CH50, TPO, C3 #### [facility] , Sodium [Moles/Vol] 142 mmol/L Normal 136-145 [facility] Comment on above: Performed By: #### C 4, THYGLOB AB, CHROMATIN, ALANNA, CH50, TPO, C3 #### [facility] , Urea nitrogen [Mass/Vol] 12 mg/dL Normal 7-25 [facility] Comment on above: Performed By: #### C 4, THYGLOB AB, CHROMATIN, ALANNA, CH50, TPO, C3 #### [facility] , Comprehensive metabolic pane rosmery 05-23-2023 Albumin [Mass/Vol] 4.3 g/dL 3.5 - 5.7 g/dL [facility] Albumin/Globulin [Mass ratio] 1.5 {ratio} [facility] ALP [Catalytic activity/Vol] 90 U/L 34 - 104 U/L [facility] ALT [Catalytic activity/Vol] 14 U/L 7 - 52 U/L [facility] Anion gap [Moles/Vol] 11.0 mmol/L 6.0 - 15.0 [facility] AST [Catalytic activity/Vol] 17 U/L 13 - 39 U/L [facility] Bilirubin [Mass/Vol] 0.5 mg/dL 0.3 - 1 .0 mg/dL [facility] Calcium [Mass/Vol] 9.3 mg/dL 8.6 - 10. 3 mg/dL [facility] Chloride [Moles/Vol] 103 mmol/L 98 - 10 7 mmol/L [facility] CO2 [Moles/Vol] 32.5 mmol/L High 21.0 - 31.0 mmol/L [facility] Creatinine (U) [Mass/Vol] 0.65 mg/dL 0.60 - 1.20 mg/dL [facility] GFR/1.73 sq M.predicted MDRD (S/P/Bld) [Vol rate/Area] mL/min/{1.73_m2} [facility] Globulin (S) [Mass/Vol] 2.8 g/dL [facility] Glucose [Mass/Vol] 82 mg/dL 70 - 100 mg/dL [facility] Comment on above: Random Glucose Refer ence Range is dependent on time and content of last meal. Glucose of more than 200 mg/dL in a nonstressed, ambulatory subject supports the diagnosis of Diabetes Mellitus. ADA recommended reference range Interpretation and review of laboratory results Abnormal [facility] Potassium [Moles/Vol] 4.5 mmol/L 3.5 - 5.1 mmol/L [facility] Protein [Mass/Vol] 7.1 g/dL 6.4 - 8.9 g/dL [facility] Sodium [Moles/Vol] 142 mmol/L 136 - 145 mmol/L [facility] Urea nitrogen [Mass/Vol] 12 mg/dL 7 - 25 mg/dL [facility] Creatinine [Mass/volume] in Serum or PlasmaOrdered By: Raleigh Suggs on 05-23-2023 Creatinine [Mass/Vol] 0.65 mg/dL 0.60-1.20 [facility] ESR (Bld) [Velocity]on 05-23 Interpretation and review of laboratory results Abnormal [facility] Eosinophils Auto (Bld) [#/Vo l]Ordered By: Raleigh Suggs on 05-23-2023 Eosinophils (Bld) [#/Vol] 0.1 10*3/uL 0.0-0.45 [facility] Eosinophils/100 WBC Auto (Bl d)Ordered By: Raleigh Suggs on 05-23-2023 Eosinophils/100 WBC (Bld) 1.9 % . [facility] Erythrocyte Sedimentation Ra micha 05-23-2023 ESR (Bld) [Velocity] 45 mm/h High 0- [facility] Comment on above: Result Comment: PERF ORMED BY: [facility] [place] [address] PATHOLOGIST SUPERVISOR [employer] GUEVARA BRUNO M.D. Performed By: #### C 4, THYGLOB AB, CHROMATIN, ALANNA, CH50, TPO, C3 #### [facility] , Erythrocyte distribution wid th Auto (RBC) [Ratio]Ordered By: Raleigh Suggs on 05-23-2023 Erythrocyte distribution width (RBC) [Ratio] 14.2 % 11.9-15.3 [facility] Erythrocyte sedimentation ra te by Photometric methodOrdered By: Raleigh Suggs on 05-23-2023 ESR Photometric method (Bld) [Velocity] 45 mm/hr 0- [facility] Globulin Calc (S) [Mass/Vol] Ordered By: Raleigh Suggs on 05-23-2023 Globulin (S) [Mass/Vol] 2.8 g/dL [facility] Glucose [Mass/volume] in Ser um or PlasmaOrdered By: Raleigh Suggs on 05-23-2023 Glucose [Mass/Vol] 82 mg/dL 70-100 [facility] Comment on above: ADA recommended refe rence rangeRandom Glucose Reference Range is dependent on time and content of last meal. Glucose of more than 200 mg/dL in a nonstressed, ambulatory subject supports the diagnosis of Diabetes Mellitus. Hematocrit Auto (Bld) [Volum e fraction]Ordered By: Raleigh Suggs on 05-23-2023 Hematocrit (Bld) [Volume fraction] 39.1 % 34.0-46.4 [facility] Hemoglobin [Mass/volume] in BloodOrdered By: Raleigh Suggs on 05-23-2023 Hemoglobin (Bld) [Mass/Vol] 13.0 g/dL 11.8-15.4 [facility] Leukocytes [#/volume] correc ranjit for nucleated erythrocytes in Blood by Automated counOrdered By: Raleigh Suggs on 05-23-2023 WBC corrected for nucl RBC Auto (Bld) [#/Vol] 5.9 10*3/uL 3.8-11.6 [facility] Lipid Panelon 05-23-2023 Cholesterol [Mass/Vol] 166 mg/dL Normal 140-200 [facility] Comment on above: Result Comment: Chol less than 200 mg/dl low risk Chol 201-239 mg/dl borderline risk Chol 240 mg/dl and greater high risk Performed By: #### C 4, THYGLOB AB, CHROMATIN, ALANNA, CH50, TPO, C3 #### [facility] , Cholesterol in HDL [Mass/Vol] 65 mg/dL Normal 23-92 [facility] Comment on above: Result Comment: HDL CHOL ATP-III CLASSIFICATION Cardiovascular Risk HDL > or equal to 60 mg/dL LOW HDL < 40 mg/dL HIGH Performed By: #### C 4, THYGLOB AB, CHROMATIN, ALANNA, CH50, TPO, C3 #### [facility] , Cholesterol.total/Daniela sterol in HDL [Mass ratio] 2.6 {ratio} Normal <5.0 [facility] Comment on above: Performed By: #### C 4, THYGLOB AB, CHROMATIN, ALANNA, CH50, TPO, C3 #### [facility] , LDL Cholesterol,Calculated 82 mg/dL Normal 0-100 [facility] Comment on above: Result Comment: LDL ATP III CLASSIFICATION LDL less than 100 mg/dL Optimal LDL 100-129 mg/dL Near or above optimal LDL 130-159 mg/dL Borderline high LDL 160-189 mg/dL High LDL greater than 189 mg/dL Very high Performed By: #### C 4, THYGLOB AB, CHROMATIN, ALANNA, CH50, TPO, C3 #### [facility] , Triglyceride w/Reflex 97 mg/dL Normal 0-149 [facility] Comment on above: Result Comment: TRIG ATP III CLASSIFICATION TRIG less than 150 mg/dL Normal TRIG 150-199 mg/dL Borderline high TRIG 200-500 mg/dL High TRIG greater than 500 mg/dL Very high Standard traceable to the Center for Disease Conrtrol and Prevention (CDC) test method. Performed By: #### C 4, THYGLOB AB, CHROMATIN, ALANNA, CH50, TPO, C3 #### [facility] , VLDL CHOLESTEROL 19 mg/dL Normal [facility] Comment on above: Performed By: #### C 4, THYGLOB AB, CHROMATIN, ALANNA, CH50, TPO, C3 #### [facility] , Lymphocytes Auto (Bld) [#/Vo l]Ordered By: Raleigh Suggs on 05-23-2023 Lymphocytes (Bld) [#/Vol] 1.7 10*3/uL 1.00-4.8 [facility] Lymphocytes/100 WBC Auto (Bl d)Ordered By: Raleigh Suggs on 05-23-2023 Lymphocytes/100 WBC (Bld) 29.8 % . [facility] MCH Auto (RBC) [Entitic mass ]Ordered By: Raleigh Suggs on 05-23-2023 MCH (RBC) [Entitic mass] 30.1 pg 24.7-34.3 [facility] MCHC Auto (RBC) [Mass/Vol]Or dered By: Raleigh Suggs on 05-23-2023 MCHC (RBC) [Mass/Vol] 33.3 g/dL 32.0-35.0 [facility] MCV Auto (RBC) [Entitic vol] Ordered By: Raleigh Suggs on 05-23-2023 MCV (RBC) [Entitic vol] 90.5 fL 80-100 [facility] Monocytes Auto (Bld) [#/Vol] Ordered By: Raleigh Suggs on 05-23-2023 Monocytes (Bld) [#/Vol] 0.5 10*3/uL 0.0-0.8 [facility] Monocytes/100 WBC Auto (Bld) Ordered By: Raleigh Suggs on 05-23-2023 Monocytes/100 WBC (Bld) 9.3 % . [facility] Neutrophils Auto (Bld) [#/Vo l]Ordered By: Raleigh Suggs on 05-23-2023 Neutrophils (Bld) [#/Vol] 3.4 10*3/uL 1.8-7.7 [facility] Neutrophils/100 WBC Auto (Bl d)Ordered By: Raleigh Suggs on 05-23-2023 Neutrophils/100 WBC (Bld) 58.0 % . [facility] No Panel InformationOrdered By: Raleigh Suggs on 05-23-2023 Estimated GFR (CKD-EPI) > 60.0 mL/Min [facility] Creatinine Clearance (Chem N/A [facility] Nucleated erythrocytes [Pres ence] in Blood by Automated countOrdered By: Rlaeigh Suggs on 05-23-2023 Nucleated RBC Auto Ql (Bld) 0.1 /100{WBC} 0-0.5 [facility] Platelet mean volume Auto (B ld) [Entitic vol]Ordered By: Raleigh Suggs on 05-23-2023 Platelet mean volume (Bld) [Entitic vol] 8.9 fL 6.3-10.7 [facility] Platelets Auto (Bld) [#/Vol] Ordered By: Raleigh Suggs on 05-23-2023 Platelets (Bld) [#/Vol] 240 10*3/uL 150-450 [facility] Potassium [Moles/volume] in Serum or PlasmaOrdered By: Raleigh Suggs on 05-23-2023 Potassium [Moles/Vol] 4.5 mmol/L 3.5-5.1 [facility] Protein [Mass/volume] in Ser um or PlasmaOrdered By: Raleigh Suggs on 05-23-2023 Protein [Mass/Vol] 7.1 g/dL 6.4-8.9 [facility] RBC Auto (Bld) [#/Vol]Ordere d By: Raleigh Suggs on 05-23-2023 RBC (Bld) [#/Vol] 4.32 10*6/uL 3.60-5.00 [facility] Sedimentation rate, automate don 05-23-2023 ESR (Bld) [Velocity] 45 mm/h High 0 - 29 [facility] Serum or plasma albumin/glob ulin mass ratioOrdered By: Raleigh Suggs on 05-23-2023 Albumin/Globulin [Mass ratio] 1.5 {ratio} [facility] Serum or plasma anion gap de terminationOrdered By: Raleigh Suggs on 05-23-2023 Anion gap [Moles/Vol] 11.0 mmol/L 6.0-15.0 [facility] Serum or plasma high density lipoprotein (HDL) cholesterol measurementOrdered By: Raleigh Suggs on 05-23-2023 Cholesterol in HDL [Mass/Vol] 65 mg/dL 23- [facility] Comment on above: HDL CHOL ATP-III CLA SSIFICATION Cardiovascular RiskHDL > or equal to 60 mg/dL LOWHDL < 40 mg/dL HIGH Serum or plasma total choles terol/high density lipoprotein (HDL) cholesterol mass ratOrdered By: Raleigh Suggs on 05-23-2023 Cholesterol.total/Daniela sterol in HDL [Mass ratio] 2.6 {ratio} <5.0 [facility] Sodium [Moles/volume] in Ser um or PlasmaOrdered By: Raleigh Suggs on 05-23-2023 Sodium [Moles/Vol] 142 mmol/L 136-145 [facility] Triglyceride [Mass/volume] i n Serum or PlasmaOrdered By: Raleigh Suggs on 05-23-2023 Triglyceride [Mass/Vol] 97 mg/dL 0-149 [facility] Comment on above: TRIG ATP III CLASSIF ICATIONTRIG less than 150 mg/dL NormalTRIG 150-199 mg/dL Borderline highTRIG 200-500 mg/dL High TRIG greater than 500 mg/dL Very highStandard traceable to the Center for Disease Conrtrol and Prevention (CDC) test method. Urea nitrogen [Mass/volume] in Serum or PlasmaOrdered By: Raleigh Suggs on 05-23-2023 Urea nitrogen [Mass/Vol] 12 mg/dL 7- [facility] Vitamin B12on 05-23-2023 Cobalamin (Vitamin B12) [Mass/Vol] 188 pg/mL Normal 180-914 [facility] Comment on above: Result Comment: PERF ORMED BY: [facility] [address] [place] [address] PATHOLOGIST SUPERVISOR [employer]KING GUEVARA BRUNO M.D. Performed By: #### C 4, THYGLOB AB, CHROMATIN, ALANNA, CH50, TPO, C3 #### [facility] , Vitamin B12 ser/plasOrdered By: Raleigh Suggs on 05-23-2023 Cobalamin (Vitamin B12) [Mass/Vol] 188 pg/mL 180-914 [facility] WBC Auto (Bld) [#/Vol]Ordere d By: Raleigh Suggs on 05-23-2023 WBC (Bld) [#/Vol] 5.9 10*3/uL 3.8-11.6 [facility] DEXA BONE DENSITYon 05-09-19 24 DEXA BONE DENSITY CLINICAL HISTORY: vertebral compression fracture. COMPARISON: None available. TECHNIQUE: The lumbar spine and both hips were scanned. FINDINGS: The mean bone mineral density from L1 through L4 is 0.800, and the T-score is -2.2, which is the standard deviation below the standard reference value for young adult. Bone mineral density of the left femoral neck is 0.893, and the T-score is 0.4, which is the standard deviation above the standard reference value for young adult. Bone mineral density of the right femoral neck is 0.779, and the T-score is -0.6, which is the standard deviation below the standard reference value for young adult. These values meet WHO criteria for osteopenia. 10 year probability (FRAX) of major osteoporotic is not reported secondary to history of prior hip or vertebral fracture. IMPRESSION: OSTEOPENIA. ELECTRONICALLY SIGNED BY: Mio Hammond MD Normal Not Available XR RIBS 2 VIEWS RIGHT WITH C HEST ANTEROPOSTERIORon 04-03-2023 XR RIBS 2 VIEWS RIGHT WITH CHEST ANTEROPOSTERIOR FINDINGS: Chest radiograph shows osseous structures intact. Cardiopericardial silhouette normal. Pulmonary vasculature normal. Surgical clips right hilum. Scarring versus subsegmental atelectatic change right lung base. Mild blunting right costophrenic angle. No fracture, dislocation, bone lesion. IMPRESSION: Impression: Remote right lung surgery, with scarring/subsegmental atelectatic change, and small left pleural effusion/pleural thickening right lung base. No fracture no bone lesion identified. ELECTRONICALLY SIGNED BY: Lang Fritz MD Normal Not Available XR THORACIC SPINE 2 VIEWSon 04-03-2023 XR THORACIC SPINE 2 VIEWS FINDINGS: Comparison, thoracic spine series, March 21, 2022. Vertebral bodies normal in alignment. Interval compression fracture, T11 vertebral body. No bone lesions identified. IMPRESSION: Impression: T11 compression fracture, not present March,. ELECTRONICALLY SIGNED BY: Lang Fritz MD Normal Not Available XR LUMBAR SPINE COMPLETE 4+ VIEWSon 03-12-2023 XR LUMBAR SPINE COMPLETE 4+ VIEWS EXAMINATION/TECHNIQUE: XR LUMBAR SPINE COMPLETE 4+ VIEWS HISTORY: Chronic low back pain. COMPARISON: Thoracic radiographs 03/21/2022. RESULT: Counting reference of L4-L5 at the level of the iliac crest. Grade 2 anterolisthesis of L5 on S1 measuring around 15 mm secondary to chronic bilateral L5 pars defects. Alignment otherwise grossly anatomic. No radiographic evidence for acute fracture. Mild chronic wedging of L5. Multilevel endplate osteophytes. Mild to moderate disc height loss at L5-S1, with the other lumbar disc bases grossly maintained. Facet degenerative changes lower lumbar spine. Visualized sacrum intact. SI joints intact. Pubic symphysis intact. Vascular calcifications of the thoracic aorta. Surgical clips right upper quadrant. Calcifications or suture material within the pelvis. Pelvic phleboliths. Degenerative changes of the visualized hips. IMPRESSION: No acute osseous findings. Other findings as discussed. ELECTRONICALLY SIGNED BY: Mio Hammond MD Normal Not Available RAD - CT Reporton 02-07-2023 RAD - CT Report [id number] F Normal [facility] Lab Reportson 01-23-2023 Lab Reports [id number] FF Normal [facility] Ambulatory Visit Summaryon 1 Ambulatory Visit Summary SILVIA LEUNG :1960 Visit Date:01/22/2023 Ambulatory Visit Instructions Your Diagnosis Urethral stricture History of kidney stones Left flank pain Abnormal urinalysis Tests Performed Urnls Dip Stick Auto w/o Microscopy POC [address] CT Abdomen/Pelvis w/o Contrast -- Results Pending -- Please visit your patient portal for your results or contact your primary care physician. Your Care Team Attending Physician - ALLIE MENDENHALL PA-C Primary Care Physician - IFEANYI GONZALES, RALEIGH Samuels This Is Your Medications List Contact prescribing physician if questions or concerns acetaminophen-hydrocodon e (Vicodin) alprazolam (Xanax 0.5 mg Tab) Procedures Performed Cystourethroscopy with dilation of urethral stricture (11/11/2015), back surgery, bowel resection, Cholecystectomy, Hysterectomy, Lobectomy. Discharge Vitals Heart Rate (Peripheral) 68 Respiratory Rate 16 Blood Pressure 136/79 Height 162 cm Height 64 in Weight 109 kg Weight 239.8 lb BMI 41.53 What to do next You Need to Schedule the Following Appointments Follow Up with [place] DICKEY, CHELI BUTLER When: Comments: sched cysto/UD after lung tx Where: [address] [place] [address] [phone] Medications What How Much When Instructions Unchanged acetaminophen-hydrocodon e (Vicodin) 5/500 By Mouth Every 4 hours as needed for Normal [facility] Patient Educationon 01-23-20 Patient Education Urology Urethral Dilation Urethral dilation is a procedure to stretch open (dilate) the urethra. The urethra is the tube that drains urine from the bladder out of the body. In women, the urethra opens above the vaginal opening. In men, the urethra opens at the tip of the penis. Urethral dilation is usually done to treat narrowing of the urethra (urethral stricture), which can make it difficult to pass urine. Urethral dilation widens the urethra so that you can pass urine normally. Urethral dilation is done through the urethral opening. There are no incisions made during the procedure. Tell a health care provider about: ? Any allergies you have. ? All medicines you are taking, including vitamins, herbs, eye drops, creams, and zqfg-hpp-drwxslw medicines. ? Any problems you or family members have had with anesthetic medicines. ? Any blood disorders you have. ? Any surgeries you have had. ? Any medical conditions you have. ? Whether you are or may be . What are the risks? Generally, this is a safe procedure. However, problems may occur, including: ? Bleeding. ? Infection. ? A return of urethral stricture, which requires repeating the dilation procedure. ? Damage to the urethra, which may require reconstructive surgery. ? Allergic reactions to medicines. What happens before the procedure? Medicines Ask your health care provider about: ? Changing or stopping your regular medicines. This is especially important if you are taking diabetes medicines or blood thinners. ? Taking medicines such as aspirin and ibuprofen. These medicines can thin your blood. Do not take these medicines unless your health care provider tells you to take them. ? Taking qtki-aqt-nhdzfny medicines, vitamins, herbs, and supplements. General instructions ? Follow instructions from your health care provider about eating or drinking restrictions. ? Plan to have someone take you home from the hospital or clinic. ? If you will be going home right after the procedure, plan to have someone with you for 24 hours. ? Ask your health care provider what steps will be taken to help prevent infection. These may include: ? Washing skin with a germ-killing soap. ? Taking antibiotic medicine. What happens during the procedure? ? An IV may be inserted into one of your veins. ? You will be given one or more of the following medicines: ? A local anesthetic to numb your urethral opening. This will be applied as a gel that will also lubricate the urethral opening. ? A sedative to help you relax. ? A thin tube with a light and camera on the end (cystoscope) will be inserted into your urethra. ? Your urethra will be rinsed (irrigated) with a germ-free (sterile) water solution. ? Narrow parts of your urethra will be stretched open using a dilator tool. Your surgeon will start with a very thin dilator, then use wider dilators as needed. ? A thin tube with an inflatable balloon on the tip may be inserted into your urethra. The balloon may be inflated to help stretch your urethra open. ? Your urethra will be irrigated. The procedure may vary among health care providers and hospitals. What can I expect after the procedure? ? After the procedure, it is common to have: ? Burning pain when urinating. ? Blood in your urine. ? A need to urinate frequently. ? You will be asked to urinate before you leave the hospital or clinic. ? Your urine flow should improve within a few days. Follow these instructions at home: Medicines ? Take blna-xqk-voicngv and prescription medicines only as told by your health care provider. ? If you were prescribed an antibiotic medicine, take it as told by your health care provider. Do not stop taking the antibiotic even if you start to feel better. ? Ask your health care provider if the medicine prescribed to you: ? Requires you to avoid driving or using heavy machinery. ? Can cause constipation. You may need to take these actions to prevent or treat constipation: ? Take qbqb-dde-jjzqzse or prescription medicines. ? Eat foods that are high in fiber, such as beans, whole grains, and fresh fruits and vegetables. ? Limit foods that are high in fat and processed sugars, such as fried or sweet foods. General instructions ? Do not drive for 24 hours if you were given a sedative during your procedure. ? If you were sent home with a small, lubricated tube (catheter) to help keep your urethra open, follow your health care provider's instructions about how and when to use it. ? Drink enough fluid to keep your urine pale yellow. ? Return to your normal activities as told by your health care provider. Ask your health care provider what activities are safe for you. ? Keep all follow-up visits as told by your health care provider. This is important. Contact a health care provider if: ? Your urine is cloudy and smells bad. ? You develop new bleeding when you urinate. ? You pa (more content not included)... Normal [facility] Urology Office/Clinic Noteon 01-22-2023 Urology Office/Clinic Note Chief Complaint New Pt *UTI/Stricture HPI Staff New pt. Last seen in our office bu DLS 11/19/16 due to abdominal tenderness, flank pain & incomplete bladder emptying. 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 Included UA/CS done this past Saturday. States she was then called and told she had UTI and that they would be calling in abx. No abx was sent to pharmacy. Pt then went to Urgent Care. Was given Keflex therapy. Results came back NEG. She was told to stop taking medication. Pt states that is why she is here today to find out if she has UTI. Denies pain/burning & visible blood in urine. Chronic back pain. Thinks she may have Lt flank pain. Occasionally get the urge, then small voids. Has had Kidney Stones in the past. Quite a few yrs ago. Passed on her own. No surgical intervention. PVR 74ml History of Present Illness staff HPI reviewed and agree. Review of Systems PHQ Score Initial Depression Screen Score: 0 no fever, chills, malaise, myalgia. no rash/lesions. no chest pain, palpitations, or SOB. no abdominal pain, nausea, vomiting. no unilateral calf swelling, redness, pain Physical Exam Vitals & Measurements HR: 68(Peripheral) RR: 16 BP: 136/79 HT: 64 in HT: 162 cm WT: 109 kg WT: 239.8 lb BMI: 41.53 General: nontoxic, NAD Mouth: moist mucosa Lungs: normal respiratory effort Cardio: regular rate, good distal perfusion Abdomen: nondistended, no suprapubic distention or tenderness, no CVA tenderness Neurologic: Grossly normal Skin: No rashes or suspicious lesions Assessment/Plan Silvia is a 62 yo F new pt. Last seen in office 11/19/[address] Schmitt. CMP 01/15/23 - BUN 10. Cr 0.52. eGFR >60. 1. Urethral stricture (N35.919: Unspecified urethral stricture, male, unspecified site) FISH/Cytology 11/03/15 - neg. S/p Cysto/UD 11/11/15. Fair stream. Denies incontinence. PVR 74cc. Does not feel she always empties completely. Has to strain to empty. Feels she may need a repeat dilation to help with complete emptying. -Will schedule Cysto with UD. The procedure risks, benefits, details, and treatment alternatives have been discussed with the patient. These include bleeding, infection, recurrent scar in over 50%, need for repeat dilation or other procedures, no symptom relief with dilation, among others. Full informed consent has been obtained. Will order Local anesthesia. Pt reports pain previously, would like to have a Valium for prior to procedure. 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 Also, pt has several upcoming tests for lungs/cardiac issues. Wants to get these resolved first and then do cysto/UD in about 3 mos. Will put in recall. Ordered: 21829 Measure Post Void residual urine and/or bladder capacity by US- non-imaging E&M of New Patient Moderate 45-59 Min 13989 Urnls Dip Stick Auto w/o Microscopy POC 22891 2. History of kidney stones (Z87.442: Personal history of urinary calculi) RON 03/26/18 [facility] - neg for hydro and masses. Liver/spleen US 06/22/21 [facility] - neg for stones, hydro, and masses. Had stones years ago. Passed on own. No surgical intervention. No recent imaging. Admits she has had mild-moderate intermittent Left flank pain for a couple months. Concerned it could be due to stone. Denies gross hematuria. -CT scan at [facility]. States she has a CT lungs to be scheduled at [facility] in mid-February and would like to do the kidney CT at the same time. Will call pt with results. Ordered: CT Abdomen/Pelvis w/o Contrast E&M of New Patient Moderate 45-59 Min 91924 3. Left flank pain (R10.9: Unspecified abdominal pain) See #2. Ordered: E&M of New Patient Moderate 45-59 Min 66101 4. Abnormal urinalysis (R82.90: Unspecified abnormal findings in urine) Pt went to converter operator 01/15/23 UA showed 2+ leukocytes and 10-19 WBCs. They told her they were going to send in abx but then didn't. Cx ended up coming back skin contam. Pt then went to Urgent care on 01/18. UA again was suspicious. They started her on empiric Keflex. but then called her a couple days later and advised to stop it as Cx came back skin contam only. Pt denies UTI sx. Denies hx frequent UTIs. UA today negative for blood and infection. Explained to pt UA is not suspicious for a UTI. No indication for a third Cx. No indication for additional abx at this time. Ordered: E&M of New Patient Moderate 45-59 Min 52502 Follow up for cysto/UD after pt has been treated for lung complications. Pt understands and agrees with plan. Follow-up With When Contact Information ALLIE MENDENHALL PA-C, URL [address] [place] [address] [phone] Additional Instructions: sched cysto/UD after lung tx Patient Education Urethral Dilation Documentation recorded by the scribe Prachi Campoverde accurately reflects the services(s) I performed and decisions made by me. Authenticated by Allie Mendenhall PA-C on 01/22/2023 10:22:08. Prachi Maria (more content not included)... Normal [facility] Comment on above: Result Comment: Elec tronically Signed By: ALLIE MENDENHALL PA-C\.br\Date and Time Signed: 01/22/23 10:22 EDT\.br\Electronically Co-Signed By: Prachi Campoverde\Date and Time Co-Signed: 01/22/23 09:21 EDT Urinalysis - DIPSTICKon 01-06 Appearance (U) cloudy [employer] Other Bilirubin Ql (U) Negative [employer] Other Color (U) dark yellow [employer] Other Glucose Ql (U) Negative [employer] Other Hemoglobin Ql (U) Negative [employer] Other Ketones Ql (U) Negative [employer] Other Leukocyte esterase Test strip Ql (U) small [employer] Other Nitrite Ql (U) Negative [employer] Other pH (U) 6.5 [pH] [employer] Other Protein Ql (U) trace [employer] Other Specific gravity (U) [Rel density] 1,025 [employer] Other Urobilinogen (U) [Mass/Vol] WNL [employer] Other Urinalysis - DIPSTICK Nor [employer] Other Urine Cultureon 01-18-2023 Bacteria identified Cx Nom (U) No Growth 2 Days PERFORMED BY: [facility] [address] [place] [address] PATHOLOGIST SUPERVISOR MODEL MAKING GUEVARA BRUNO M.D. Normal [facility] Comment on above: Performed By: #### C 4, THYGLOB AB, CHROMATIN, ALANNA, CH50, TPO, C3 #### [facility] , Alanine aminotransferase [En zymatic activity/volume] in Serum or PlasmaOrdered By: Debo Gates on 01-15-2023 ALT [Catalytic activity/Vol] 18 U/L 7-52 [facility] Albumin [Mass/volume] in Ser um or Plasma by Bromocresol green (BCG) dye binding methoOrdered By: Debo Gates on 01-15-2023 Albumin BCG dye [Mass/Vol] 3.5 g/dL 3.5-5.7 [facility] Alkaline phosphatase [Enzyma tic activity/volume] in Serum or PlasmaOrdered By: Debo Gates on 01-15-2023 ALP [Catalytic activity/Vol] 99 U/L 34-104 [facility] Aspartate aminotransferase [ Enzymatic activity/volume] in Serum or PlasmaOrdered By: Debo Gates on 01-15-2023 AST [Catalytic activity/Vol] 19 U/L 13-39 [facility] Automated erythrocytes count in urine sediment (number/area)Ordered By: Debo Gates on 01-15-2023 RBC Auto (Urine sed) [#/Area] 3-4 [HPF] 0-4 [facility] Automated leukocytes count i n urine sediment (number/area)Ordered By: Debo Gates on 01-15-2023 WBC Auto (Urine sed) [#/Area] 10-19 [HPF] 0-4 [facility] Basophils Auto (Bld) [#/Vol] Ordered By: Debo Gates on 01-15-2023 Basophils (Bld) [#/Vol] 0.1 10*3/uL 0.0-0.2 [facility] Basophils/100 WBC Auto (Bld) Ordered By: Debo Gates on 01-15-2023 Basophils/100 WBC (Bld) 0.6 % . [facility] Bilirubin Test strip Ql (U)O rdered By: Debo Gates on 01-15-2023 Bilirubin Ql (U) 1+ Negative [facility] Bilirubin.total [Mass/volume ] in Serum or PlasmaOrdered By: Debo Gates on 01-15-2023 Bilirubin [Mass/Vol] 0.5 mg/dL 0.3-1.0 [facility] Calcium [Mass/volume] in Ser um or PlasmaOrdered By: Debo Gates on 01-15-2023 Calcium [Mass/Vol] 8.5 mg/dL 8.6-10.3 [facility] Carbon dioxide, total [Moles /volume] in Serum or PlasmaOrdered By: Debo Gates on 01-15-2023 CO2 [Moles/Vol] 28.4 mmol/L 21.0-31.0 [facility] Chloride [Moles/volume] in S kimberly or PlasmaOrdered By: Debo Gates on 01-15-2023 Chloride [Moles/Vol] 98 mmol/L 98-107 [facility] Color Auto (U)Ordered By: Kriss Butler on 01-15-2023 Color (U) Dark yellow Yellow [facility] Complete Blood Count Auto Di ffon 01-15-2023 Basophils (Bld) [#/Vol] 0.1 10*3/uL Normal 0.0-0.2 [facility] Comment on above: Performed By: #### C 4, THYGLOB AB, CHROMATIN, ALANNA, CH50, TPO, C3 #### [facility] , Basophils/100 WBC (Bld) 0.6 % Normal . [facility] Comment on above: Performed By: #### C 4, THYGLOB AB, CHROMATIN, ALANNA, CH50, TPO, C3 #### [facility] , Eosinophils (Bld) [#/Vol] 0.1 10*3/uL Normal 0.0-0.45 [facility] Comment on above: Performed By: #### C 4, THYGLOB AB, CHROMATIN, ALANNA, CH50, TPO, C3 #### [facility] , Eosinophils/100 WBC (Bld) 1.8 % Normal . [facility] Comment on above: Performed By: #### C 4, THYGLOB AB, CHROMATIN, ALANNA, CH50, TPO, C3 #### [facility] , Erythrocyte distribution width (RBC) [Ratio] 13.1 % Normal 11.9-15.3 [facility] Comment on above: Performed By: #### C 4, THYGLOB AB, CHROMATIN, ALANNA, CH50, TPO, C3 #### [facility] , Hematocrit (Bld) [Volume fraction] 31.9 % Low 34.0-46.4 [facility] Comment on above: Performed By: #### C 4, THYGLOB AB, CHROMATIN, ALANNA, CH50, TPO, C3 #### [facility] , Hemoglobin (Bld) [Mass/Vol] 10.7 g/dL Low 11.8-15.4 [facility] Comment on above: Performed By: #### C 4, THYGLOB AB, CHROMATIN, ALANNA, CH50, TPO, C3 #### [facility] , Lymphocytes (Bld) [#/Vol] 1.5 10*3/uL Normal 1.00-4.8 [facility] Comment on above: Performed By: #### C 4, THYGLOB AB, CHROMATIN, ALANNA, CH50, TPO, C3 #### [facility] , Lymphocytes/100 WBC (Bld) 18.3 % Normal . [facility] Comment on above: Performed By: #### C 4, THYGLOB AB, CHROMATIN, ALANNA, CH50, TPO, C3 #### [facility] , MCH (RBC) [Entitic mass] 29.9 pg Normal 24.7-34.3 [facility] Comment on above: Performed By: #### C 4, THYGLOB AB, CHROMATIN, ALANNA, CH50, TPO, C3 #### [facility] , MCV (RBC) [Entitic vol] 89.4 fL Normal 80-100 [facility] Comment on above: Performed By: #### C 4, THYGLOB AB, CHROMATIN, ALANAN, CH50, TPO, C3 #### [facility] , Mean Corpuscular HGB Conc 33.5 g/dL Normal 32.0-35.0 [facility] Comment on above: Performed By: #### C 4, THYGLOB AB, CHROMATIN, ALANNA, CH50, TPO, C3 #### [facility] , Monocytes (Bld) [#/Vol] 0.8 10*3/uL Normal 0.0-0.8 [facility] Comment on above: Performed By: #### C 4, THYGLOB AB, CHROMATIN, ALANNA, CH50, TPO, C3 #### [facility] , Monocytes/100 WBC (Bld) 10.1 % Normal . [facility] Comment on above: Performed By: #### C 4, THYGLOB AB, CHROMATIN, ALANNA, CH50, TPO, C3 #### [facility] , Neutrophils (Bld) [#/Vol] 5.7 10*3/uL Normal 1.8-7.7 [facility] Comment on above: Performed By: #### C 4, THYGLOB AB, CHROMATIN, ALANNA, CH50, TPO, C3 #### [facility] , Neutrophils/100 WBC (Bld) 69.2 % Normal . [facility] Comment on above: Performed By: #### C 4, THYGLOB AB, CHROMATIN, ALANNA, CH50, TPO, C3 #### [facility] , NRBC% 0.0 /100{WBC} Normal 0-0.5 [facility] Comment on above: Performed By: #### C 4, THYGLOB AB, CHROMATIN, ALANNA, CH50, TPO, C3 #### [facility] , Platelet mean volume (Bld) [Entitic vol] 8.4 fL Normal 6.3-10.7 [facility] Comment on above: Performed By: #### C 4, THYGLOB AB, CHROMATIN, ALANNA, CH50, TPO, C3 #### [facility] , Platelets (Bld) [#/Vol] 334 10*3/uL Normal 150-450 [facility] Comment on above: Performed By: #### C 4, THYGLOB AB, CHROMATIN, ALANNA, CH50, TPO, C3 #### [facility] , RBC (Bld) [#/Vol] 3.56 10*6/uL Low 3.60-5.00 [facility] Comment on above: Performed By: #### C 4, THYGLOB AB, CHROMATIN, ALANNA, CH50, TPO, C3 #### [facility] , WBC (Bld) [#/Vol] 8.3 10*3/uL Normal 3.8-11.6 [facility] Comment on above: Performed By: #### C 4, THYGLOB AB, CHROMATIN, ALANNA, CH50, TPO, C3 #### [facility] , Comprehensive Metabolic Pane rosmery 01-15-2023 Albumin [Mass/Vol] 3.5 g/dL Normal 3.5-5.7 [facility] Comment on above: Performed By: #### C 4, THYGLOB AB, CHROMATIN, ALANNA, CH50, TPO, C3 #### [facility] , Albumin/Globulin [Mass ratio] 1.0 {ratio} Normal [facility] Comment on above: Performed By: #### C 4, THYGLOB AB, CHROMATIN, ALANNA, CH50, TPO, C3 #### [facility] , ALP [Catalytic activity/Vol] 99 U/L Normal 34-104 [facility] Comment on above: Result Comment: PERF ORMED BY: [facility] [address] [address] PATHOLOGIST SUPERVISOR MODEL MAKING GUEVARA BRUNO M.D. Performed By: #### C 4, THYGLOB AB, CHROMATIN, ALANNA, CH50, TPO, C3 #### [facility] , ALT [Catalytic activity/Vol] 18 U/L Normal 7-52 [facility] Comment on above: Performed By: #### C 4, THYGLOB AB, CHROMATIN, ALANNA, CH50, TPO, C3 #### [facility] , Anion gap [Moles/Vol] 14.5 mmol/L Normal 6.0-15.0 [facility] Comment on above: Performed By: #### C 4, THYGLOB AB, CHROMATIN, ALANNA, CH50, TPO, C3 #### [facility] , AST [Catalytic activity/Vol] 19 U/L Normal 13-39 [facility] Comment on above: Performed By: #### C 4, THYGLOB AB, CHROMATIN, ALANNA, CH50, TPO, C3 #### [facility] , Bilirubin [Mass/Vol] 0.5 mg/dL Normal 0.3-1.0 [facility] Comment on above: Performed By: #### C 4, THYGLOB AB, CHROMATIN, ALANNA, CH50, TPO, C3 #### [facility] , Calcium [Mass/Vol] 8.5 mg/dL Low 8.6-10.3 [facility] Comment on above: Performed By: #### C 4, THYGLOB AB, CHROMATIN, ALANNA, CH50, TPO, C3 #### [facility] , Chloride [Moles/Vol] 98 mmol/L Normal 98-107 [facility] Comment on above: Performed By: #### C 4, THYGLOB AB, CHROMATIN, ALANNA, CH50, TPO, C3 #### [facility] , CO2 [Moles/Vol] 28.4 mmol/L Normal 21.0-31.0 [facility] Comment on above: Performed By: #### C 4, THYGLOB AB, CHROMATIN, ALANNA, CH50, TPO, C3 #### [facility] , Creatinine [Mass/Vol] 0.52 mg/dL Low 0.60-1.20 [facility] Comment on above: Performed By: #### C 4, THYGLOB AB, CHROMATIN, ALANNA, CH50, TPO, C3 #### [facility] , GFR/1.73 sq M.predicted MDRD (S/P/Bld) [Vol rate/Area] mL/min/{1.73_m2} Normal [facility] Comment on above: Performed By: #### C 4, THYGLOB AB, CHROMATIN, ALANNA, CH50, TPO, C3 #### [facility] , Globulin (S) [Mass/Vol] 3.6 g/dL Normal [facility] Comment on above: Performed By: #### C 4, THYGLOB AB, CHROMATIN, ALANNA, CH50, TPO, C3 #### [facility] , Glucose [Mass/Vol] 90 mg/dL Normal 70-100 [facility] Comment on above: Result Comment: [place] Glucose Reference Range is dependent on time and content of last meal. Glucose of more than 200 mg/dL in a nonstressed, ambulatory subject supports the diagnosis of Diabetes Mellitus. ADA recommended reference range Performed By: #### C 4, THYGLOB AB, CHROMATIN, ALANNA, CH50, TPO, C3 #### [facility] , Potassium [Moles/Vol] 3.9 mmol/L Normal 3.5-5.1 [facility] Comment on above: Performed By: #### C 4, THYGLOB AB, CHROMATIN, ALANNA, CH50, TPO, C3 #### [facility] , Protein [Mass/Vol] 7.1 g/dL Normal 6.4-8.9 [facility] Comment on above: Performed By: #### C 4, THYGLOB AB, CHROMATIN, ALANNA, CH50, TPO, C3 #### [facility] , Sodium [Moles/Vol] 137 mmol/L Normal 136-145 [facility] Comment on above: Performed By: #### C 4, THYGLOB AB, CHROMATIN, ALANNA, CH50, TPO, C3 #### [facility] , Urea nitrogen [Mass/Vol] 10 mg/dL Normal 7-25 [facility] Comment on above: Performed By: #### C 4, THYGLOB AB, CHROMATIN, ALANNA, CH50, TPO, C3 #### [facility] , Creatinine [Mass/volume] in Serum or PlasmaOrdered By: Debo Gates on 01-15-2023 Creatinine [Mass/Vol] 0.52 mg/dL 0.60-1.20 [facility] Dipstick and Microscopicon 1 Appearance (U) Clear Normal Clear [facility] Comment on above: Order Comment: Name Collection Type:: Clean-Voided Midstream Performed By: #### C 4, THYGLOB AB, CHROMATIN, ALANNA, CH50, TPO, C3 #### [facility] , Bacteria,Urine None Seen Normal None Seen [facility] Comment on above: Order Comment: Name Collection Type:: Clean-Voided Midstream Performed By: #### C 4, THYGLOB AB, CHROMATIN, ALANNA, CH50, TPO, C3 #### [facility] , Bilirubin,Urine 1+ High Negative [facility] Comment on above: Order Comment: Name Collection Type:: Clean-Voided Midstream Performed By: #### C 4, THYGLOB AB, CHROMATIN, ALANNA, CH50, TPO, C3 #### [facility] , Color (U) Dark Yellow Critically abnormal Yellow [facility] Comment on above: Order Comment: Name Collection Type:: Clean-Voided Midstream Performed By: #### C 4, THYGLOB AB, CHROMATIN, ALANNA, CH50, TPO, C3 #### [facility] , Glucose Ql (U) Normal Normal Normal [facility] Comment on above: Order Comment: Name Collection Type:: Clean-Voided Midstream Performed By: #### C 4, THYGLOB AB, CHROMATIN, ALANNA, CH50, TPO, C3 #### [facility] , Hyaline Casts,Urine 9-19 High 0-8 [facility] Comment on above: Order Comment: Name Collection Type:: Clean-Voided Midstream Result Comment: PERF ORMED BY: [facility] [address] [place] [address] PATHOLOGIST SUPERVISOR MODEL MAKING GUEVARA BRUNO M.D. Performed By: #### C 4, THYGLOB AB, CHROMATIN, ALANNA, CH50, TPO, C3 #### [facility] , Ketones Ql (U) Trace High Negative [facility] Comment on above: Order Comment: Name Collection Type:: Clean-Voided Midstream Performed By: #### C 4, THYGLOB AB, CHROMATIN, ALANNA, CH50, TPO, C3 #### [facility] , Leukocyte esterase Test strip Ql (U) 2+ High Negative [facility] Comment on above: Order Comment: Name Collection Type:: Clean-Voided Midstream Performed By: #### C 4, THYGLOB AB, CHROMATIN, ALANNA, CH50, TPO, C3 #### [facility] , Nitrite,Urine Negative Normal Negative [facility] Comment on above: Order Comment: Name Collection Type:: Clean-Voided Midstream Performed By: #### C 4, THYGLOB AB, CHROMATIN, ALANNA, CH50, TPO, C3 #### [facility] , Occult Blood,Urine Negative Normal Negative [facility] Comment on above: Order Comment: Name Collection Type:: Clean-Voided Midstream Performed By: #### C 4, THYGLOB AB, CHROMATIN, ALANNA, CH50, TPO, C3 #### [facility] , pH (U) 6.0 [pH] Normal 5.0-9.0 [facility] Comment on above: Order Comment: Name Collection Type:: Clean-Voided Midstream Performed By: #### C 4, THYGLOB AB, CHROMATIN, ALANNA, CH50, TPO, C3 #### [facility] , Protein,Urine Trace High Negative [facility] Comment on above: Order Comment: Name Collection Type:: Clean-Voided Midstream Performed By: #### C 4, THYGLOB AB, CHROMATIN, ALANNA, CH50, TPO, C3 #### [facility] , RBC,Urine 3-4 Normal 0-4 [facility] Comment on above: Order Comment: Name Collection Type:: Clean-Voided Midstream Performed By: #### C 4, THYGLOB AB, CHROMATIN, ALANNA, CH50, TPO, C3 #### [facility] , Specificy [place],Urine 1.031 High 1.00 1-1.03 0 [facility] Comment on above: Order Comment: Name Collection Type:: Clean-Voided Midstream Performed By: #### C 4, THYGLOB AB, CHROMATIN, ALANNA, CH50, TPO, C3 #### [facility] , Squamous Epithelial Cell,Urine 1-2 Normal 0-2 [facility] Comment on above: Order Comment: Name Collection Type:: Clean-Voided Midstream Performed By: #### C 4, THYGLOB AB, CHROMATIN, ALANNA, CH50, TPO, C3 #### [facility] , Urobilinogen,Urine Normal Normal Normal [facility] Comment on above: Order Comment: Name Collection Type:: Clean-Voided Midstream Performed By: #### C 4, THYGLOB AB, CHROMATIN, ALANNA, CH50, TPO, C3 #### [facility] , WBC,Urine 10-19 High 0-4 [facility] Comment on above: Order Comment: Name Collection Type:: Clean-Voided Midstream Performed By: #### C 4, THYGLOB AB, CHROMATIN, ALANNA, CH50, TPO, C3 #### [facility] , Eosinophils Auto (Bld) [#/Vo l]Ordered By: Debo Gates on 01-15-2023 Eosinophils (Bld) [#/Vol] 0.1 10*3/uL 0.0-0.45 [facility] Eosinophils/100 WBC Auto (Bl d)Ordered By: Debo Gates on 01-15-2023 Eosinophils/100 WBC (Bld) 1.8 % . [facility] Erythrocyte Sedimentation Ra micha 01-15-2023 ESR (Bld) [Velocity] 108 mm/h High 0-29 [facility] Comment on above: Result Comment: PERF ORMED BY: [facility] [address] [place] [address] PATHOLOGIST SUPERVISOR MODEL MAKING GUEVARA BRUNO M.D. Performed By: #### C 4, THYGLOB AB, CHROMATIN, ALANNA, CH50, TPO, C3 #### [facility] , Erythrocyte distribution wid th Auto (RBC) [Ratio]Ordered By: Debo Gates on 01-15-2023 Erythrocyte distribution width (RBC) [Ratio] 13.1 % 11.9-15.3 [facility] Erythrocyte sedimentation ra te by Photometric methodOrdered By: Debo Gates on 01-15-2023 ESR Photometric method (Bld) [Velocity] 108 mm/hr 0-29 [facility] Globulin Calc (S) [Mass/Vol] Ordered By: Debo Gates on 01-15-2023 Globulin (S) [Mass/Vol] 3.6 g/dL [facility] Glucose [Mass/volume] in Ser um or PlasmaOrdered By: Debo Gates on 01-15-2023 Glucose [Mass/Vol] 90 mg/dL 70-100 [facility] Comment on above: ADA recommended refe rence rangeRandom Glucose Reference Range is dependent on time and content of last meal. Glucose of more than 200 mg/dL in a nonstressed, ambulatory subject supports the diagnosis of Diabetes Mellitus. Hematocrit Auto (Bld) [Volum e fraction]Ordered By: Debo Gates on 01-15-2023 Hematocrit (Bld) [Volume fraction] 31.9 % 34.0-46.4 [facility] Hemoglobin [Mass/volume] in BloodOrdered By: Debo Gates on 01-15-2023 Hemoglobin (Bld) [Mass/Vol] 10.7 g/dL 11.8-15.4 [facility] Ketones Auto test strip (U) [Mass/Vol]Ordered By: Debo Gates on 01-15-2023 Ketones (U) [Mass/Vol] Trace Negative [facility] Laboratory - UrinalysisOrder ed By: Debo Gates on 01-15-2023 Hyaline casts LM Ql (Urine sed) 9-19 [LPF] 0-8 [facility] Leukocytes [#/volume] correc ranjit for nucleated erythrocytes in Blood by Automated counOrdered By: Debo Gates on 01-15-2023 WBC corrected for nucl RBC Auto (Bld) [#/Vol] 8.3 10*3/uL 3.8-11.6 [facility] Lymphocytes Auto (Bld) [#/Vo l]Ordered By: Debo Gates on 01-15-2023 Lymphocytes (Bld) [#/Vol] 1.5 10*3/uL 1.00-4.8 [facility] Lymphocytes/100 WBC Auto (Bl d)Ordered By: Debo Gates on 01-15-2023 Lymphocytes/100 WBC (Bld) 18.3 % . [facility] MCH Auto (RBC) [Entitic mass ]Ordered By: Debo Gates on 01-15-2023 MCH (RBC) [Entitic mass] 29.9 pg 24.7-34.3 [facility] MCHC Auto (RBC) [Mass/Vol]Or dered By: Debo Gates on 01-15-2023 MCHC (RBC) [Mass/Vol] 33.5 g/dL 32.0-35.0 [facility] MCV Auto (RBC) [Entitic vol] Ordered By: Debo Gates on 01-15-2023 MCV (RBC) [Entitic vol] 89.4 fL 80-100 [facility] Monocytes Auto (Bld) [#/Vol] Ordered By: Debo Gates on 01-15-2023 Monocytes (Bld) [#/Vol] 0.8 10*3/uL 0.0-0.8 [facility] Monocytes/100 WBC Auto (Bld) Ordered By: Debo Gates on 01-15-2023 Monocytes/100 WBC (Bld) 10.1 % . [facility] Neutrophils Auto (Bld) [#/Vo l]Ordered By: Debo Gates on 01-15-2023 Neutrophils (Bld) [#/Vol] 5.7 10*3/uL 1.8-7.7 [facility] Neutrophils/100 WBC Auto (Bl d)Ordered By: Debo Gates on 01-15-2023 Neutrophils/100 WBC (Bld) 69.2 % . [facility] Nitrite Test strip Ql (U)Ord ered By: Debo Gates on 01-15-2023 Nitrite Ql (U) Negative Negative [facility] No Panel InformationOrdered By: Debo Gates on 01-15-2023 Estimated GFR (CKD-EPI) > 60.0 mL/Min [facility] Creatinine Clearance (Chem N/A [facility] Nucleated erythrocytes [Pres ence] in Blood by Automated countOrdered By: Debo Gates on 01-15-2023 Nucleated RBC Auto Ql (Bld) 0.0 /100{WBC} 0-0.5 [facility] Platelet mean volume Auto (B ld) [Entitic vol]Ordered By: Debo Gates on 01-15-2023 Platelet mean volume (Bld) [Entitic vol] 8.4 fL 6.3-10.7 [facility] Platelets Auto (Bld) [#/Vol] Ordered By: Debo Gates on 01-15-2023 Platelets (Bld) [#/Vol] 334 10*3/uL 150-450 [facility] Potassium [Moles/volume] in Serum or PlasmaOrdered By: Debo Gates on 01-15-2023 Potassium [Moles/Vol] 3.9 mmol/L 3.5-5.1 [facility] Protein Auto test strip (U) [Mass/Vol]Ordered By: Debo Gates on 01-15-2023 Protein (U) [Mass/Vol] Trace mg/dL Negative [facility] Protein [Mass/volume] in Ser um or PlasmaOrdered By: Debo Gates on 01-15-2023 Protein [Mass/Vol] 7.1 g/dL 6.4-8.9 [facility] RBC Auto (Bld) [#/Vol]Ordere d By: Debo Gates on 01-15-2023 RBC (Bld) [#/Vol] 3.56 10*6/uL 3.60-5.00 [facility] Serum or plasma albumin/glob ulin mass ratioOrdered By: Debo Gates on 01-15-2023 Albumin/Globulin [Mass ratio] 1.0 {ratio} [facility] Serum or plasma anion gap de terminationOrdered By: Debo Gates on 01-15-2023 Anion gap [Moles/Vol] 14.5 mmol/L 6.0-15.0 [facility] Sodium [Moles/volume] in Ser um or PlasmaOrdered By: Debo Gates on 01-15-2023 Sodium [Moles/Vol] 137 mmol/L 136-145 [facility] Specific gravity Auto test s trip (U) [Rel density]Ordered By: Debo Gates on 01-15-2023 Specific gravity (U) [Rel density] 1.031 1.001-1.03 0 [facility] Squamous epithelial cells de tection in urine sediment by light microscopyOrdered By: Debo Gates on 01-15-2023 Epithelial cells.squamous LM Ql (Urine sed) 1-2 [HPF] 0-2 [facility] Urea nitrogen [Mass/volume] in Serum or PlasmaOrdered By: Debo Gates on 01-15-2023 Urea nitrogen [Mass/Vol] 10 mg/dL 7-25 [facility] Urine Cultureon 01-15-2023 Bacteria identified Cx Nom (U) <10,000 colonies/ml mixed bacterial skin contaminants including mixed gram negative bacilli - 2 Days PERFORMED BY: [place] [address] PATHOLOGIST SUPERVISOR [employer] GUEVARA BRUNO M.D. [facility] Comment on above: Performed By: #### C 4, THYGLOB AB, CHROMATIN, ALANNA, CH50, TPO, C3 #### [facility] , Urine bacteria detection by automated methodOrdered By: Debo Gates on 01-15-2023 Bacteria Auto Ql (U) None seen None [facility] Urine clarity by refractomet ry automatedOrdered By: Debo Gates on 01-15-2023 Clarity Refractometry automated (U) Clear Clear [facility] Urine culture routineOrdered By: Debo Gates on 01-15-2023 Bacteria identified Cx Nom (U) bacilli - 2 Days [facility] Urine glucose measurement by automated test strip (mass/volume)Ordered By: Debo Gates on 01-15-2023 Glucose Auto test strip (U) [Mass/Vol] Normal mg/dL [facility] Urine hemoglobin detection b y automated test stripOrdered By: Debo Gates on 01-15-2023 Hemoglobin Auto test strip Ql (U) Negative Negative [facility] Urine leukocyte esterase det ection by automated test stripOrdered By: Debo Gates on 01-15-2023 Leukocyte esterase Auto test strip Ql (U) 2+ Negative [facility] Urobilinogen Auto test strip (U) [Mass/Vol]Ordered By: Debo Gates on 01-15-2023 Urobilinogen (U) [Mass/Vol] Normal mg/dL Normal [facility] WBC Auto (Bld) [#/Vol]Ordere d By: Debo Gates on 01-15-2023 WBC (Bld) [#/Vol] 8.3 10*3/uL 3.8-11.6 [facility] pH Auto test strip (U)Ordere d By: Debo Gates on 01-15-2023 pH (U) 6.0 [pH] 5.0-9.0 [facility] Basic Metabolic Panelon 08- Anion gap [Moles/Vol] 10.4 mmol/L Normal 6.0-15.0 [facility] Comment on above: Performed By: #### C 4, THYGLOB AB, CHROMATIN, ALANNA, CH50, TPO, C3 #### [facility] , Calcium [Mass/Vol] 8.8 mg/dL Normal 8.6-10.3 [facility] Comment on above: Result Comment: PERF ORMED BY: [facility] [address] [place] [address] PATHOLOGIST SUPERVIS[employer] GUEVARA BRUNO M.D. Performed By: #### C 4, THYGLOB AB, CHROMATIN, ALANNA, CH50, TPO, C3 #### [facility] , Chloride [Moles/Vol] 106 mmol/L Normal 98-107 [facility] Comment on above: Performed By: #### C 4, THYGLOB AB, CHROMATIN, ALANNA, CH50, TPO, C3 #### [facility] , CO2 [Moles/Vol] 30.7 mmol/L Normal 21.0-31.0 [facility] Comment on above: Performed By: #### C 4, THYGLOB AB, CHROMATIN, ALANNA, CH50, TPO, C3 #### [facility] , Creatinine [Mass/Vol] 0.69 mg/dL Normal 0.60-1.20 [facility] Comment on above: Performed By: #### C 4, THYGLOB AB, CHROMATIN, ALANNA, CH50, TPO, C3 #### [facility] , GFR/1.73 sq M.predicted MDRD (S/P/Bld) [Vol rate/Area] mL/min/{1.73_m2} Normal [facility] Comment on above: Performed By: #### C 4, THYGLOB AB, CHROMATIN, ALANNA, CH50, TPO, C3 #### [facility] , Glucose [Mass/Vol] 95 mg/dL Normal 70-100 [facility] Comment on above: Result Comment: [place] Glucose Reference Range is dependent on time and content of last meal. Glucose of more than 200 mg/dL in a nonstressed, ambulatory subject supports the diagnosis of Diabetes Mellitus. ADA recommended reference range Performed By: #### C 4, THYGLOB AB, CHROMATIN, ALANNA, CH50, TPO, C3 #### [facility] , Potassium [Moles/Vol] 4.1 mmol/L Normal 3.5-5.1 [facility] Comment on above: Performed By: #### C 4, THYGLOB AB, CHROMATIN, ALANNA, CH50, TPO, C3 #### [facility] , Sodium [Moles/Vol] 143 mmol/L Normal 136-145 [facility] Comment on above: Performed By: #### C 4, THYGLOB AB, CHROMATIN, ALANNA, CH50, TPO, C3 #### [facility] , Urea nitrogen [Mass/Vol] 14 mg/dL Normal 7-25 [facility] Comment on above: Performed By: #### C 4, THYGLOB AB, CHROMATIN, ALANNA, CH50, TPO, C3 #### [facility] , Calcium [Mass/volume] in Ser um or PlasmaOrdered By: Raleigh Suggs on 11-16-2022 Calcium [Mass/Vol] 8.8 mg/dL 8.6-10.3 [facility] Carbon dioxide, total [Moles /volume] in Serum or PlasmaOrdered By: Raleigh Suggs on 11-16-2022 CO2 [Moles/Vol] 30.7 mmol/L 21.0-31.0 [facility] Chloride [Moles/volume] in S kimberly or PlasmaOrdered By: Raleigh Suggs on 11-16-2022 Chloride [Moles/Vol] 106 mmol/L 98-107 [facility] Creatinine [Mass/volume] in Serum or PlasmaOrdered By: Raleigh Suggs on 11-16-2022 Creatinine [Mass/Vol] 0.69 mg/dL 0.60-1.20 [facility] Glucose [Mass/volume] in Ser um or PlasmaOrdered By: Raleigh Suggs on 11-16-2022 Glucose [Mass/Vol] 95 mg/dL 70-100 [facility] Comment on above: ADA recommended refe rence rangeRandom Glucose Reference Range is dependent on time and content of last meal. Glucose of more than 200 mg/dL in a nonstressed, ambulatory subject supports the diagnosis of Diabetes Mellitus. No Panel InformationOrdered By: Raleigh Suggs on 11-16-2022 Estimated GFR (CKD-EPI) > 60.0 mL/Min [facility] Creatinine Clearance (Chem N/A [facility] Potassium [Moles/volume] in Serum or PlasmaOrdered By: Raleigh Suggs on 11-16-2022 Potassium [Moles/Vol] 4.1 mmol/L 3.5-5.1 [facility] Serum or plasma anion gap de terminationOrdered By: Raleigh Suggs on 11-16-2022 Anion gap [Moles/Vol] 10.4 mmol/L 6.0-15.0 [facility] Sodium [Moles/volume] in Ser um or PlasmaOrdered By: Raleigh Suggs on 11-16-2022 Sodium [Moles/Vol] 143 mmol/L 136-145 [facility] Urea nitrogen [Mass/volume] in Serum or PlasmaOrdered By: Raleigh Suggs on 11-16-2022 Urea nitrogen [Mass/Vol] 14 mg/dL 7- [facility] Alanine aminotransferase [En zymatic activity/volume] in Serum or PlasmaOrdered By: Raleigh Suggs on 11-06-2022 ALT [Catalytic activity/Vol] 12 U/L 7-52 [facility] Albumin [Mass/volume] in Ser um or Plasma by Bromocresol green (BCG) dye binding methoOrdered By: Raleigh Suggs on 11-06-2022 Albumin BCG dye [Mass/Vol] 4.1 g/dL 3.5-5.7 [facility] Alkaline phosphatase [Enzyma tic activity/volume] in Serum or PlasmaOrdered By: Raleigh Suggs on 11-06-2022 ALP [Catalytic activity/Vol] 92 U/L 34-104 [facility] Aspartate aminotransferase [ Enzymatic activity/volume] in Serum or PlasmaOrdered By: Raleigh Suggs on 11-06-2022 AST [Catalytic activity/Vol] 16 U/L 13-39 [facility] Basophils Auto (Bld) [#/Vol] Ordered By: Raleigh Suggs on 11-06-2022 Basophils (Bld) [#/Vol] 0.0 10*3/uL 0.0-0.2 [facility] Basophils/100 WBC Auto (Bld) Ordered By: Raleigh Suggs on 11-06-2022 Basophils/100 WBC (Bld) 0.4 % . [facility] Bilirubin.total [Mass/volume ] in Serum or PlasmaOrdered By: Raleigh Suggs on 11-06-2022 Bilirubin [Mass/Vol] 0.5 mg/dL 0.3-1.0 [facility] Calcium [Mass/volume] in Ser um or PlasmaOrdered By: Raleigh Suggs on 11-06-2022 Calcium [Mass/Vol] 9.1 mg/dL 8.6-10.3 [facility] Carbon dioxide, total [Moles /volume] in Serum or PlasmaOrdered By: Raleigh Suggs on 11-06-2022 CO2 [Moles/Vol] 29.6 mmol/L 21.0-31.0 [facility] Chloride [Moles/volume] in S kimberly or PlasmaOrdered By: Raleigh Suggs on 11-06-2022 Chloride [Moles/Vol] 104 mmol/L 98-107 [facility] Complete Blood Count Auto Di ffon 11-06-2022 Basophils (Bld) [#/Vol] 0.0 10*3/uL Normal 0.0-0.2 [facility] Comment on above: Result Comment: PERF ORMED BY: [facility] [place] [address] PATHOLOGIST SUPERVISOR [employer] GUEVARA BRUNO M.D. Performed By: #### C 4, THYGLOB AB, CHROMATIN, ALANNA, CH50, TPO, C3 #### [facility] , Basophils/100 WBC (Bld) 0.4 % Normal . [facility] Comment on above: Performed By: #### C 4, THYGLOB AB, CHROMATIN, ALANNA, CH50, TPO, C3 #### [facility] , Eosinophils (Bld) [#/Vol] 0.1 10*3/uL Normal 0.0-0.45 [facility] Comment on above: Performed By: #### C 4, THYGLOB AB, CHROMATIN, ALANNA, CH50, TPO, C3 #### [facility] , Eosinophils/100 WBC (Bld) 1.9 % Normal . [facility] Comment on above: Performed By: #### C 4, THYGLOB AB, CHROMATIN, ALANNA, CH50, TPO, C3 #### [facility] , Erythrocyte distribution width (RBC) [Ratio] 13.3 % Normal 11.9-15.3 [facility] Comment on above: Performed By: #### C 4, THYGLOB AB, CHROMATIN, ALANNA, CH50, TPO, C3 #### [facility] , Hematocrit (Bld) [Volume fraction] 37.4 % Normal 34.0-46.4 [facility] Comment on above: Performed By: #### C 4, THYGLOB AB, CHROMATIN, ALANNA, CH50, TPO, C3 #### [facility] , Hemoglobin (Bld) [Mass/Vol] 12.6 g/dL Normal 11.8-15.4 [facility] Comment on above: Performed By: #### C 4, THYGLOB AB, CHROMATIN, ALANNA, CH50, TPO, C3 #### [facility] , Lymphocytes (Bld) [#/Vol] 2.0 10*3/uL Normal 1.00-4.8 [facility] Comment on above: Performed By: #### C 4, THYGLOB AB, CHROMATIN, ALANNA, CH50, TPO, C3 #### [facility] , Lymphocytes/100 WBC (Bld) 32.6 % Normal . [facility] Comment on above: Performed By: #### C 4, THYGLOB AB, CHROMATIN, ALANNA, CH50, TPO, C3 #### [facility] , MCH (RBC) [Entitic mass] 31.1 pg Normal 24.7-34.3 [facility] Comment on above: Performed By: #### C 4, THYGLOB AB, CHROMATIN, ALANNA, CH50, TPO, C3 #### [facility] , MCV (RBC) [Entitic vol] 92.6 fL Normal 80-100 [facility] Comment on above: Performed By: #### C 4, THYGLOB AB, CHROMATIN, ALANNA, CH50, TPO, C3 #### [facility] , Mean Corpuscular HGB Conc 33.6 g/dL Normal 32.0-35.0 [facility] Comment on above: Performed By: #### C 4, THYGLOB AB, CHROMATIN, ALANNA, CH50, TPO, C3 #### [facility] , Monocytes (Bld) [#/Vol] 0.6 10*3/uL Normal 0.0-0.8 [facility] Comment on above: Performed By: #### C 4, THYGLOB AB, CHROMATIN, ALANNA, CH50, TPO, C3 #### [facility] , Monocytes/100 WBC (Bld) 9.0 % Normal . [facility] Comment on above: Performed By: #### C 4, THYGLOB AB, CHROMATIN, ALANNA, CH50, TPO, C3 #### [facility] , Neutrophils (Bld) [#/Vol] 3.5 10*3/uL Normal 1.8-7.7 [facility] Comment on above: Performed By: #### C 4, THYGLOB AB, CHROMATIN, ALANNA, CH50, TPO, C3 #### [facility] , Neutrophils/100 WBC (Bld) 56.1 % Normal . [facility] Comment on above: Performed By: #### C 4, THYGLOB AB, CHROMATIN, ALANNA, CH50, TPO, C3 #### [facility] , NRBC% 0.2 /100{WBC} Normal 0-0.5 [facility] Comment on above: Performed By: #### C 4, THYGLOB AB, CHROMATIN, ALANNA, CH50, TPO, C3 #### [facility] , Platelet mean volume (Bld) [Entitic vol] 9.1 fL Normal 6.3-10.7 [facility] Comment on above: Performed By: #### C 4, THYGLOB AB, CHROMATIN, ALANNA, CH50, TPO, C3 #### [facility] , Platelets (Bld) [#/Vol] 210 10*3/uL Normal 150-450 [facility] Comment on above: Performed By: #### C 4, THYGLOB AB, CHROMATIN, ALANNA, CH50, TPO, C3 #### [facility] , RBC (Bld) [#/Vol] 4.04 10*6/uL Normal 3.60-5.00 [facility] Comment on above: Performed By: #### C 4, THYGLOB AB, CHROMATIN, ALANNA, CH50, TPO, C3 #### [facility] , WBC (Bld) [#/Vol] 6.2 10*3/uL Normal 3.8-11.6 [facility] Comment on above: Performed By: #### C 4, THYGLOB AB, CHROMATIN, ALANNA, CH50, TPO, C3 #### [facility] , Comprehensive Metabolic Pane rosmery 11-06-2022 Albumin [Mass/Vol] 4.1 g/dL Normal 3.5-5.7 [facility] Comment on above: Performed By: #### C 4, THYGLOB AB, CHROMATIN, ALANNA, CH50, TPO, C3 #### [facility] , Albumin/Globulin [Mass ratio] 1.5 {ratio} Normal [facility] Comment on above: Performed By: #### C 4, THYGLOB AB, CHROMATIN, ALANNA, CH50, TPO, C3 #### [facility] , ALP [Catalytic activity/Vol] 92 U/L Normal 34-104 [facility] Comment on above: Performed By: #### C 4, THYGLOB AB, CHROMATIN, ALANNA, CH50, TPO, C3 #### [facility] , ALT [Catalytic activity/Vol] 12 U/L Normal 7-52 [facility] Comment on above: Performed By: #### C 4, THYGLOB AB, CHROMATIN, ALANNA, CH50, TPO, C3 #### [facility] , Anion gap [Moles/Vol] 11.0 mmol/L Normal 6.0-15.0 [facility] Comment on above: Performed By: #### C 4, THYGLOB AB, CHROMATIN, ALANNA, CH50, TPO, C3 #### [facility] , AST [Catalytic activity/Vol] 16 U/L Normal 13-39 [facility] Comment on above: Performed By: #### C 4, THYGLOB AB, CHROMATIN, ALANNA, CH50, TPO, C3 #### [facility] , Bilirubin [Mass/Vol] 0.5 mg/dL Normal 0.3-1.0 [facility] Comment on above: Performed By: #### C 4, THYGLOB AB, CHROMATIN, ALANNA, CH50, TPO, C3 #### [facility] , Calcium [Mass/Vol] 9.1 mg/dL Normal 8.6-10.3 [facility] Comment on above: Performed By: #### C 4, THYGLOB AB, CHROMATIN, ALANNA, CH50, TPO, C3 #### [facility] , Chloride [Moles/Vol] 104 mmol/L Normal 98-107 [facility] Comment on above: Performed By: #### C 4, THYGLOB AB, CHROMATIN, ALANNA, CH50, TPO, C3 #### [facility] , CO2 [Moles/Vol] 29.6 mmol/L Normal 21.0-31.0 [facility] Comment on above: Performed By: #### C 4, THYGLOB AB, CHROMATIN, ALANNA, CH50, TPO, C3 #### [facility] , Creatinine [Mass/Vol] 0.62 mg/dL Normal 0.60-1.20 [facility] Comment on above: Performed By: #### C 4, THYGLOB AB, CHROMATIN, ALANNA, CH50, TPO, C3 #### [facility] , GFR/1.73 sq M.predicted MDRD (S/P/Bld) [Vol rate/Area] mL/min/{1.73_m2} [facility] Comment on above: Performed By: #### C 4, THYGLOB AB, CHROMATIN, ALANNA, CH50, TPO, C3 #### [facility] , Globulin (S) [Mass/Vol] 2.8 g/dL Normal [facility] Comment on above: Performed By: #### C 4, THYGLOB AB, CHROMATIN, ALANNA, CH50, TPO, C3 #### [facility] , Glucose [Mass/Vol] 85 mg/dL Normal 70-100 [facility] Comment on above: Result Comment: [place] Glucose Reference Range is dependent on time and content of last meal. Glucose of more than 200 mg/dL in a nonstressed, ambulatory subject supports the diagnosis of Diabetes Mellitus. ADA recommended reference range Performed By: #### C 4, THYGLOB AB, CHROMATIN, ALANNA, CH50, TPO, C3 #### [facility] , Potassium [Moles/Vol] 4.6 mmol/L Normal 3.5-5.1 [facility] Comment on above: Performed By: #### C 4, THYGLOB AB, CHROMATIN, ALANNA, CH50, TPO, C3 #### [facility] , Protein [Mass/Vol] 6.9 g/dL Normal 6.4-8.9 [facility] Comment on above: Performed By: #### C 4, THYGLOB AB, CHROMATIN, ALANNA, CH50, TPO, C3 #### [facility] , Sodium [Moles/Vol] 140 mmol/L Normal 136-145 [facility] Comment on above: Performed By: #### C 4, THYGLOB AB, CHROMATIN, ALANNA, CH50, TPO, C3 #### [facility] , Urea nitrogen [Mass/Vol] 11 mg/dL Normal 7-25 [facility] Comment on above: Performed By: #### C 4, THYGLOB AB, CHROMATIN, ALANNA, CH50, TPO, C3 #### [facility] , Creatinine [Mass/volume] in Serum or PlasmaOrdered By: Raleigh Suggs on 11-06-2022 Creatinine [Mass/Vol] 0.62 mg/dL 0.60-1.20 [facility] Eosinophils Auto (Bld) [#/Vo l]Ordered By: Raleigh Suggs on 11-06-2022 Eosinophils (Bld) [#/Vol] 0.1 10*3/uL 0.0-0.45 [facility] Eosinophils/100 WBC Auto (Bl d)Ordered By: Raleigh Suggs on 11-06-2022 Eosinophils/100 WBC (Bld) 1.9 % . [facility] Erythrocyte distribution wid th Auto (RBC) [Ratio]Ordered By: Raleigh Suggs on 11-06-2022 Erythrocyte distribution width (RBC) [Ratio] 13.3 % 11.9-15.3 [facility] Globulin Calc (S) [Mass/Vol] Ordered By: Raleigh Suggs on 11-06-2022 Globulin (S) [Mass/Vol] 2.8 g/dL [facility] Glucose [Mass/volume] in Ser um or PlasmaOrdered By: Raleigh Suggs on 11-06-2022 Glucose [Mass/Vol] 85 mg/dL 70-100 [facility] Comment on above: ADA recommended refe rence rangeRandom Glucose Reference Range is dependent on time and content of last meal. Glucose of more than 200 mg/dL in a nonstressed, ambulatory subject supports the diagnosis of Diabetes Mellitus. Hematocrit Auto (Bld) [Volum e fraction]Ordered By: Raleigh Suggs on 11-06-2022 Hematocrit (Bld) [Volume fraction] 37.4 % 34.0-46.4 [facility] Hemoglobin [Mass/volume] in BloodOrdered By: Raleigh Suggs on 11-06-2022 Hemoglobin (Bld) [Mass/Vol] 12.6 g/dL 11.8-15.4 [facility] Leukocytes [#/volume] correc ranjit for nucleated erythrocytes in Blood by Automated counOrdered By: Raleigh Suggs on 11-06-2022 WBC corrected for nucl RBC Auto (Bld) [#/Vol] 6.2 10*3/uL 3.8-11.6 [facility] Lymphocytes Auto (Bld) [#/Vo l]Ordered By: Raleigh Suggs on 11-06-2022 Lymphocytes (Bld) [#/Vol] 2.0 10*3/uL 1.00-4.8 [facility] Lymphocytes/100 WBC Auto (Bl d)Ordered By: Raleigh Suggs on 11-06-2022 Lymphocytes/100 WBC (Bld) 32.6 % . [facility] MCH Auto (RBC) [Entitic mass ]Ordered By: Raleigh Suggs on 11-06-2022 MCH (RBC) [Entitic mass] 31.1 pg 24.7-34.3 [facility] MCHC Auto (RBC) [Mass/Vol]Or dered By: Raleigh Suggs on 11-06-2022 MCHC (RBC) [Mass/Vol] 33.6 g/dL 32.0-35.0 [facility] MCV Auto (RBC) [Entitic vol] Ordered By: Raleigh Suggs on 11-06-2022 MCV (RBC) [Entitic vol] 92.6 fL 80-100 [facility] Monocytes Auto (Bld) [#/Vol] Ordered By: Raleigh Suggs on 11-06-2022 Monocytes (Bld) [#/Vol] 0.6 10*3/uL 0.0-0.8 [facility] Monocytes/100 WBC Auto (Bld) Ordered By: Raleigh Suggs on 11-06-2022 Monocytes/100 WBC (Bld) 9.0 % . [facility] Neutrophils Auto (Bld) [#/Vo l]Ordered By: Raleigh Suggs on 11-06-2022 Neutrophils (Bld) [#/Vol] 3.5 10*3/uL 1.8-7.7 [facility] Neutrophils/100 WBC Auto (Bl d)Ordered By: Raleigh Suggs on 11-06-2022 Neutrophils/100 WBC (Bld) 56.1 % . [facility] No Panel InformationOrdered By: Raleigh Suggs on 11-06-2022 Estimated GFR (CKD-EPI) > 60.0 mL/Min [facility] Creatinine Clearance (Chem N/A [facility] Nucleated erythrocytes [Pres ence] in Blood by Automated countOrdered By: Raleigh Suggs on 11-06-2022 Nucleated RBC Auto Ql (Bld) 0.2 /100{WBC} 0-0.5 [facility] Platelet mean volume Auto (B ld) [Entitic vol]Ordered By: Raleigh Suggs on 11-06-2022 Platelet mean volume (Bld) [Entitic vol] 9.1 fL 6.3-10.7 [facility] Platelets Auto (Bld) [#/Vol] Ordered By: Raleigh Suggs on 11-06-2022 Platelets (Bld) [#/Vol] 210 10*3/uL 150-450 [facility] Potassium [Moles/volume] in Serum or PlasmaOrdered By: Raleigh Suggs on 11-06-2022 Potassium [Moles/Vol] 4.6 mmol/L 3.5-5.1 [facility] Protein [Mass/volume] in Ser um or PlasmaOrdered By: Raleigh Suggs on 11-06-2022 Protein [Mass/Vol] 6.9 g/dL 6.4-8.9 [facility] RBC Auto (Bld) [#/Vol]Ordere d By: Raleigh Suggs on 11-06-2022 RBC (Bld) [#/Vol] 4.04 10*6/uL 3.60-5.00 [facility] Serum or plasma albumin/glob ulin mass ratioOrdered By: Raleigh Suggs on 11-06-2022 Albumin/Globulin [Mass ratio] 1.5 {ratio} [facility] Serum or plasma anion gap de terminationOrdered By: Raleigh Suggs on 11-06-2022 Anion gap [Moles/Vol] 11.0 mmol/L 6.0-15.0 [facility] Sodium [Moles/volume] in Ser um or PlasmaOrdered By: Raleigh Suggs on 11-06-2022 Sodium [Moles/Vol] 140 mmol/L 136-145 [facility] Urea nitrogen [Mass/volume] in Serum or PlasmaOrdered By: Raleigh Suggs on 11-06-2022 Urea nitrogen [Mass/Vol] 11 mg/dL 7-25 [facility] Vitamin B12on 11-06-2022 Cobalamin (Vitamin B12) [Mass/Vol] 263 pg/mL Normal 180-914 [facility] Comment on above: Result Comment: PERF ORMED BY: [facility] [address] [place] [address] PATHOLOGIST SUPERVISOR [employer] GUEVARA BRUNO M.D. Performed By: #### C 4, THYGLOB AB, CHROMATIN, ALANNA, CH50, TPO, C3 #### [facility] , Vitamin B12 ser/plasOrdered By: Raleigh Suggs on 11-06-2022 Cobalamin (Vitamin B12) [Mass/Vol] 263 pg/mL 180-914 [facility] WBC Auto (Bld) [#/Vol]Ordere d By: Raleigh Suggs on 11-06-2022 WBC (Bld) [#/Vol] 6.2 10*3/uL 3.8-11.6 [facility] Activated partial thrombopla stin time (aPTT) in platelet poor plasma by coagulation aOrdered By: Brian Marquez on 08-01-2022 aPTT Coag (PPP) [Time] 44.2 s 25.1-36.5 [facility] Partial Thromboplastin Timeo n 08-01-2022 aPTT Coag (Bld) [Time] 44.2 s High 25.1-36.5 [facility] Comment on above: Result Comment: PERF ORMED BY: [place] [address] PATHOLOGIST SUPERVIS[employer] GUEVARA BRUNO M.D. Performed By: #### P TT #### [address] [place] Antinuclear Antibodieson 07-30-2022 Antinuclear Abs, IFA Positive Critically abnormal . [facility] Comment on above: Result Comment: Nega tive <1:80 Borderline 1:80 Positive >1:80 Performed By: #### C 4, THYGLOB AB, CHROMATIN, ALANNA, CH50, TPO, C3 #### [facility] , Note 1 Normal . [facility] Comment on above: Result Comment: For more information about Hep-2 cell patterns use ANApatterns.org, the official website for the International Consensus on Antinuclear Antibody (ALANNA) Patterns (ICAP). A positive [place]NA result may occur in healthy individuals (low titer) or be associated with a variety of diseases. See interpretation chart which is not all inclusive: Pattern Antigen Detected Suggested Disease Association Homogeneous DNA(ds,ss), SLE - High titers Nucleosomes, Histones Drug-induced SLE Speckled Sm, ETL DATA ARCHITECT, SCL-70, SLE,MCTD,PSS (diffuse form), SS-A/SS-B Sjogrens Nucleolar SCL-70, PM-1/SCL High titers Scleroderma, PM/DM Centromere Centromere PSS (limited form) w/Crest syndrome variable Nuclear Dot [id number] Primary Biliary Cirrhosis Nuclear GP210, Primary Biliary Cirrhosis Membrane nalini A,B,C Performed at: - [facility] [address] [id number] Mud Grinder: Brendan Odom PhD, Phone: [phone] Performed By: #### C 4, THYGLOB AB, CHROMATIN, ALANNA, CH50, TPO, C3 #### [facility] , Speckled Pattern 1:640 High . [facility] Comment on above: Result Comment: ICAP nomenclature: [id number],5,29 Performed By: #### C 4, THYGLOB AB, CHROMATIN, ALANNA, CH50, TPO, C3 #### [facility] , Alanine aminotransferase [En zymatic activity/volume] in Serum or PlasmaOrdered By: Brian Marquez on 07-30-2022 ALT [Catalytic activity/Vol] 13 U/L 7-52 [facility] Albumin [Mass/volume] in Ser um or PlasmaOrdered By: Brian Marquez on 07-30-2022 Albumin [Mass/Vol] 3.5 g/dL 2.9-4.4 [facility] Albumin [Mass/volume] in Ser um or Plasma by Bromocresol green (BCG) dye binding methoOrdered By: Brian Marquez on 07-30-2022 Albumin BCG dye [Mass/Vol] 4.1 g/dL 3.5-5.7 [facility] Albumin/Protein.total in 24 hour Urine by ElectrophoresisOrdered By: Brian Marquez on 07-30-2022 Albumin Elph (24H U) [Mass fraction] 35.9 % . [facility] Aldolaseon 07-30-2022 Aldolase 5.0 U/L Normal 3.3-10.3 [facility] Comment on above: Result Comment: Perf ormed at: - [facility] [address] [id number] Mud Grinder: Brendan Odom PhD, Phone: [phone] PERFORMED BY: [facility] [address] [place] [address] PATHOLOGIST SUPERVISOR MODEL MAKING GUEVARA BRUNO M.D. Performed By: #### C 4, THYGLOB AB, CHROMATIN, ALANNA, CH50, TPO, C3 #### [facility] , Alkaline phosphatase [Enzyma tic activity/volume] in Serum or PlasmaOrdered By: Brian Marquez on 07-30-2022 ALP [Catalytic activity/Vol] 93 U/L 34-104 [facility] Antithyroglobulin Abon 07-30 Antithyroglobulin Ab <1.0 Normal 0.0-0.9 [facility] Comment on above: Result Comment: Thyr oglobulin Antibody measured by [employer] Performed at: - [facility] [address] [id number] Mud Grinder: Brendan Odom PhD, Phone: [phone] Performed By: #### C 4, THYGLOB AB, CHROMATIN, ALANNA, CH50, TPO, C3 #### [facility] , Aspartate aminotransferase [ Enzymatic activity/volume] in Serum or PlasmaOrdered By: Brian Marquez on 07-30-2022 AST [Catalytic activity/Vol] 16 U/L 13-39 [facility] Automated erythrocytes count in urine sediment (number/area)Ordered By: Brian Marquez on 07-30-2022 RBC Auto (Urine sed) [#/Area] 0-1 [HPF] 0-4 [facility] Automated leukocytes count i n urine sediment (number/area)Ordered By: Brian Marquez on 07-30-2022 WBC Auto (Urine sed) [#/Area] 1-2 [HPF] 0-4 [facility] Basophils Auto (Bld) [#/Vol] Ordered By: Brian Marquez on 07-30-2022 Basophils (Bld) [#/Vol] 0.0 10*3/uL 0.0-0.2 [facility] Basophils/100 WBC Auto (Bld) Ordered By: Brian Marquez on 07-30-2022 Basophils/100 WBC (Bld) 0.8 % . [facility] Bilirubin Test strip Ql (U)O rdered By: Brian Marquez on 07-30-2022 Bilirubin Ql (U) Negative Negative [facility] Bilirubin.total [Mass/volume ] in Serum or PlasmaOrdered By: Brian Marquez on 07-30-2022 Bilirubin [Mass/Vol] 0.6 mg/dL 0.3-1.0 [facility] C reactive protein [Mass/vol ume] in Serum or PlasmaOrdered By: Brian Marquez on 07-30-2022 CRP [Mass/Vol] 0.9 mg/dL 0.0-0.5 [facility] C-Reactive Proteinon 023 C-Reactive Protein 0.9 mg/dL High 0.0-0.5 [facility] Comment on above: Performed By: #### C 4, THYGLOB AB, CHROMATIN, ALANNA, CH50, TPO, C3 #### [facility] , CT biopsyOrdered By: Brian Marquez on 07-30-2022 CT biopsy 5.0 U/L 3.3-10.3 [facility] Comment on above: Performed at: [facility] [place], [place] [id number] Director: Brendan Odom PhD, Phone: [phone] Calcium [Mass/volume] in Ser um or PlasmaOrdered By: Brian Marquez on 07-30-2022 Calcium [Mass/Vol] 8.3 mg/dL 8.6-10.3 [facility] Carbon dioxide, total [Moles /volume] in Serum or PlasmaOrdered By: Brian Marquez on 07-30-2022 CO2 [Moles/Vol] 28.3 mmol/L 21.0-31.0 [facility] Chloride [Moles/volume] in S kimberly or PlasmaOrdered By: Brian Marquez on 07-30-2022 Chloride [Moles/Vol] 105 mmol/L 98-107 [facility] Chromatin Antibodyon 023 Chromatin Antibody <0.2 Normal 0.0-0.9 [facility] Comment on above: Result Comment: Perf ormed at: - [facility] [place] [address] [place], [place] [id number] Mud Grinder: Brendan Odom PhD, Phone: [phone] PERFORMED BY: [facility] [address] [place] [address] PATHOLOGIST SUPERVISOR MODEL MAKING GUEVARA BRUNO M.D. Performed By: #### C 4, THYGLOB AB, CHROMATIN, ALANNA, CH50, TPO, C3 #### [facility] , Color Auto (U)Ordered By: Radha Marquez on 07-30-2022 Color (U) Yellow Yellow [facility] Complement C3on 07-30-2022 Complement C3 161 mg/dL Normal 82-167 [facility] Comment on above: Result Comment: Perf ormed at: [address] [id number] Mud Grinder: Brendan Odom PhD, Phone: [phone] Performed By: #### C 4, THYGLOB AB, CHROMATIN, ALANNA, CH50, TPO, C3 #### [facility] , Complement C4on 07-30-2022 Complement C4 24 mg/dL Normal 12-38 [facility] Comment on above: Performed By: #### C 4, THYGLOB AB, CHROMATIN, ALANNA, CH50, TPO, C3 #### [facility] , Complement Total (CH50)on Complement Total (CH50) >60 Normal >41 F [facility] Comment on above: Result Comment: Age Male Female 1 - 30 days Not Estab. Not Estab. 31 days - 6 months >32 >20 7 months - 17 years >39 >39 >17 years >41 >41 NOTE: The adult ( >17 years ) reference interval range is used to flag abnormals on this report. If the patient is 17 years old or younger, use the table above to determine out of range values. Performed at: [address] [id number] Mud Grinder: Brendan Odom PhD, Phone: [phone] PERFORMED BY: [place] [address] [place] [address] PATHOLOGIST SUPERVISOR MODEL MAKING GUEVARA BRUNO M.D. Performed By: #### C 4, THYGLOB AB, CHROMATIN, ALANNA, CH50, TPO, C3 #### [facility] , Complete Blood Count Auto Di ffon 07-30-2022 Basophils (Bld) [#/Vol] 0.0 10*3/uL Normal 0.0-0.2 [facility] Comment on above: Performed By: #### C 4, THYGLOB AB, CHROMATIN, ALANNA, CH50, TPO, C3 #### [facility] , Basophils/100 WBC (Bld) 0.8 % Normal . [facility] Comment on above: Performed By: #### C 4, THYGLOB AB, CHROMATIN, ALANNA, CH50, TPO, C3 #### [facility] , Eosinophils (Bld) [#/Vol] 0.1 10*3/uL Normal 0.0-0.45 [facility] Comment on above: Performed By: #### C 4, THYGLOB AB, CHROMATIN, ALANNA, CH50, TPO, C3 #### [facility] , Eosinophils/100 WBC (Bld) 1.7 % Normal . [facility] Comment on above: Performed By: #### C 4, THYGLOB AB, CHROMATIN, ALANNA, CH50, TPO, C3 #### [facility] , Erythrocyte distribution width (RBC) [Ratio] 13.3 % Normal 11.9-15.3 [facility] Comment on above: Performed By: #### C 4, THYGLOB AB, CHROMATIN, ALANNA, CH50, TPO, C3 #### [facility] , Hematocrit (Bld) [Volume fraction] 36.9 % Normal 34.0-46.4 [facility] Comment on above: Performed By: #### C 4, THYGLOB AB, CHROMATIN, ALANNA, CH50, TPO, C3 #### [facility] , Hemoglobin (Bld) [Mass/Vol] 12.6 g/dL Normal 11.8-15.4 [facility] Comment on above: Performed By: #### C 4, THYGLOB AB, CHROMATIN, ALANNA, CH50, TPO, C3 #### [facility] , Lymphocytes (Bld) [#/Vol] 1.8 10*3/uL Normal 1.00-4.8 [facility] Comment on above: Performed By: #### C 4, THYGLOB AB, CHROMATIN, ALANNA, CH50, TPO, C3 #### [facility] , Lymphocytes/100 WBC (Bld) 29.6 % Normal . [facility] Comment on above: Performed By: #### C 4, THYGLOB AB, CHROMATIN, ALANNA, CH50, TPO, C3 #### [facility] , MCH (RBC) [Entitic mass] 31.5 pg Normal 24.7-34.3 [facility] Comment on above: Performed By: #### C 4, THYGLOB AB, CHROMATIN, ALANNA, CH50, TPO, C3 #### [facility] , MCV (RBC) [Entitic vol] 91.9 fL Normal 80-100 [facility] Comment on above: Performed By: #### C 4, THYGLOB AB, CHROMATIN, ALANNA, CH50, TPO, C3 #### [facility] , Mean Corpuscular HGB Conc 34.2 g/dL Normal 32.0-35.0 [facility] Comment on above: Performed By: #### C 4, THYGLOB AB, CHROMATIN, ALANNA, CH50, TPO, C3 #### [facility] , Monocytes (Bld) [#/Vol] 0.5 10*3/uL Normal 0.0-0.8 [facility] Comment on above: Performed By: #### C 4, THYGLOB AB, CHROMATIN, ALANNA, CH50, TPO, C3 #### [facility] , Monocytes/100 WBC (Bld) 7.7 % Normal . [facility] Comment on above: Performed By: #### C 4, THYGLOB AB, CHROMATIN, ALANNA, CH50, TPO, C3 #### [facility] , Neutrophils (Bld) [#/Vol] 3.6 10*3/uL Normal 1.8-7.7 [facility] Comment on above: Performed By: #### C 4, THYGLOB AB, CHROMATIN, ALANNA, CH50, TPO, C3 #### [facility] , Neutrophils/100 WBC (Bld) 60.2 % Normal . [facility] Comment on above: Performed By: #### C 4, THYGLOB AB, CHROMATIN, ALANNA, CH50, TPO, C3 #### [facility] , NRBC% 0.1 /100{WBC} Normal 0-0.5 [facility] Comment on above: Performed By: #### C 4, THYGLOB AB, CHROMATIN, ALANNA, CH50, TPO, C3 #### [facility] , Platelet mean volume (Bld) [Entitic vol] 8.9 fL Normal 6.3-10.7 [facility] Comment on above: Performed By: #### C 4, THYGLOB AB, CHROMATIN, ALANNA, CH50, TPO, C3 #### [facility] , Platelets (Bld) [#/Vol] 227 10*3/uL Normal 150-450 [facility] Comment on above: Performed By: #### C 4, THYGLOB AB, CHROMATIN, ALANNA, CH50, TPO, C3 #### [facility] , RBC (Bld) [#/Vol] 4.02 10*6/uL Normal 3.60-5.00 [facility] Comment on above: Performed By: #### C 4, THYGLOB AB, CHROMATIN, ALANNA, CH50, TPO, C3 #### [facility] , WBC (Bld) [#/Vol] 6.0 10*3/uL Normal 3.8-11.6 [facility] Comment on above: Performed By: #### C 4, THYGLOB AB, CHROMATIN, ALANNA, CH50, TPO, C3 #### [facility] , Comprehensive Metabolic Pane rosmery 07-30-2022 Albumin [Mass/Vol] 4.1 g/dL Normal 3.5-5.7 [facility] Comment on above: Performed By: #### C 4, THYGLOB AB, CHROMATIN, ALANNA, CH50, TPO, C3 #### [facility] , Albumin/Globulin [Mass ratio] 1.5 {ratio} Normal [facility] Comment on above: Performed By: #### C 4, THYGLOB AB, CHROMATIN, ALANNA, CH50, TPO, C3 #### [facility] , ALP [Catalytic activity/Vol] 93 U/L Normal 34-104 [facility] Comment on above: Performed By: #### C 4, THYGLOB AB, CHROMATIN, ALANNA, CH50, TPO, C3 #### [facility] , ALT [Catalytic activity/Vol] 13 U/L Normal 7-52 [facility] Comment on above: Performed By: #### C 4, THYGLOB AB, CHROMATIN, ALANNA, CH50, TPO, C3 #### [facility] , Anion gap [Moles/Vol] 10.9 mmol/L Normal 6.0-15.0 [facility] Comment on above: Performed By: #### C 4, THYGLOB AB, CHROMATIN, ALANNA, CH50, TPO, C3 #### [facility] , AST [Catalytic activity/Vol] 16 U/L Normal 13-39 [facility] Comment on above: Performed By: #### C 4, THYGLOB AB, CHROMATIN, ALANNA, CH50, TPO, C3 #### [facility] , Bilirubin [Mass/Vol] 0.6 mg/dL Normal 0.3-1.0 [facility] Comment on above: Performed By: #### C 4, THYGLOB AB, CHROMATIN, ALANNA, CH50, TPO, C3 #### [facility] , Calcium [Mass/Vol] 8.3 mg/dL Low 8.6-10.3 [facility] Comment on above: Performed By: #### C 4, THYGLOB AB, CHROMATIN, ALANNA, CH50, TPO, C3 #### [facility] , Chloride [Moles/Vol] 105 mmol/L Normal 98-107 [facility] Comment on above: Performed By: #### C 4, THYGLOB AB, CHROMATIN, ALANNA, CH50, TPO, C3 #### [facility] , CO2 [Moles/Vol] 28.3 mmol/L Normal 21.0-31.0 [facility] Comment on above: Performed By: #### C 4, THYGLOB AB, CHROMATIN, ALANNA, CH50, TPO, C3 #### [facility] , Creatinine [Mass/Vol] 0.60 mg/dL Normal 0.60-1.20 [facility] Comment on above: Performed By: #### C 4, THYGLOB AB, CHROMATIN, ALANNA, CH50, TPO, C3 #### [facility] , GFR/1.73 sq M.predicted MDRD (S/P/Bld) [Vol rate/Area] mL/min/{1.73_m2} Normal [facility] Comment on above: Performed By: #### C 4, THYGLOB AB, CHROMATIN, ALANNA, CH50, TPO, C3 #### [facility] , Globulin (S) [Mass/Vol] 2.7 g/dL Normal [facility] Comment on above: Performed By: #### C 4, THYGLOB AB, CHROMATIN, ALANNA, CH50, TPO, C3 #### [facility] , Glucose [Mass/Vol] 89 mg/dL Normal 70-100 [facility] Comment on above: Result Comment: [place] Glucose Reference Range is dependent on time and content of last meal. Glucose of more than 200 mg/dL in a nonstressed, ambulatory subject supports the diagnosis of Diabetes Mellitus. ADA recommended reference range Performed By: #### C 4, THYGLOB AB, CHROMATIN, ALANNA, CH50, TPO, C3 #### [facility] , Potassium [Moles/Vol] 4.2 mmol/L Normal 3.5-5.1 [facility] Comment on above: Performed By: #### C 4, THYGLOB AB, CHROMATIN, ALANNA, CH50, TPO, C3 #### [facility] , Protein [Mass/Vol] 6.8 g/dL Normal 6.4-8.9 [facility] Comment on above: Performed By: #### C 4, THYGLOB AB, CHROMATIN, ALANNA, CH50, TPO, C3 #### [facility] , Sodium [Moles/Vol] 140 mmol/L Normal 136-145 [facility] Comment on above: Performed By: #### C 4, THYGLOB AB, CHROMATIN, ALANNA, CH50, TPO, C3 #### [facility] , Urea nitrogen [Mass/Vol] 9 mg/dL Normal 7-25 [facility] Comment on above: Performed By: #### C 4, THYGLOB AB, CHROMATIN, ALANNA, CH50, TPO, C3 #### [facility] , Creatine Kinaseon 07-30-2022 CK [Catalytic activity/Vol] 89 U/L Normal 30-223 [facility] Comment on above: Result Comment: PERF ORMED BY: [facility] [address] [place] [address] PATHOLOGIST SUPERVISOR MODEL MAKING GUEVARA BRUNO M.D. Performed By: #### C 4, THYGLOB AB, CHROMATIN, ALANNA, CH50, TPO, C3 #### [facility] , Creatine kinase [Enzymatic a ctivity/volume] in Serum or PlasmaOrdered By: Brian Marquez on 07-30-2022 CK [Catalytic activity/Vol] 89 U/L 30-223 [facility] Creatinine [Mass/volume] in Serum or PlasmaOrdered By: Brian Marquez on 07-30-2022 Creatinine [Mass/Vol] 0.60 mg/dL 0.60-1.20 [facility] Dilute Lauri's viper venom timeOrdered By: Brian Marquez on 07-30-2022 dRVVT Coag (PPP) [Time] 41.6 s 0.0-47.0 F [facility] Dipstick and Microscopicon 0 07-30-2022 Appearance (U) Clear Normal Clear [facility] Comment on above: Order Comment: Name Collection Type:: Clean-Voided Midstream Performed By: #### C 4, THYGLOB AB, CHROMATIN, ALANNA, CH50, TPO, C3 #### [facility] , Bacteria,Urine None Seen Normal None Seen [facility] Comment on above: Order Comment: Name Collection Type:: Clean-Voided Midstream Performed By: #### C 4, THYGLOB AB, CHROMATIN, ALANNA, CH50, TPO, C3 #### [facility] , Bilirubin,Urine Negative Normal Negative [facility] Comment on above: Order Comment: Name Collection Type:: Clean-Voided Midstream Performed By: #### C 4, THYGLOB AB, CHROMATIN, ALANNA, CH50, TPO, C3 #### [facility] , Color (U) Yellow Normal Yellow [facility] Comment on above: Order Comment: Name Collection Type:: Clean-Voided Midstream Performed By: #### C 4, THYGLOB AB, CHROMATIN, ALANNA, CH50, TPO, C3 #### [facility] , Glucose Ql (U) Normal Normal Normal [facility] Comment on above: Order Comment: Name Collection Type:: Clean-Voided Midstream Performed By: #### C 4, THYGLOB AB, CHROMATIN, ALANNA, CH50, TPO, C3 #### [facility] , Hyaline Casts,Urine 0-8 Normal 0-8 [facility] Comment on above: Order Comment: Name Collection Type:: Clean-Voided Midstream Result Comment: PERF ORMED BY: [facility] [address] [place] [address] PATHOLOGIST SUPERVISOR MODEL MAKING GUEVARA BRUNO M.D. Performed By: #### C 4, THYGLOB AB, CHROMATIN, ALANNA, CH50, TPO, C3 #### [facility] , Ketones Ql (U) Negative Normal Negative [facility] Comment on above: Order Comment: Name Collection Type:: Clean-Voided Midstream Performed By: #### C 4, THYGLOB AB, CHROMATIN, ALANNA, CH50, TPO, C3 #### [facility] , Leukocyte esterase Test strip Ql (U) Negative Normal Negative [facility] Comment on above: Order Comment: Name Collection Type:: Clean-Voided Midstream Performed By: #### C 4, THYGLOB AB, CHROMATIN, ALANNA, CH50, TPO, C3 #### [facility] , Nitrite,Urine Negative Normal Negative [facility] Comment on above: Order Comment: Name Collection Type:: Clean-Voided Midstream Performed By: #### C 4, THYGLOB AB, CHROMATIN, ALANNA, CH50, TPO, C3 #### [facility] , Occult Blood,Urine Negative Normal Negative [facility] Comment on above: Order Comment: Name Collection Type:: Clean-Voided Midstream Performed By: #### C 4, THYGLOB AB, CHROMATIN, ALANNA, CH50, TPO, C3 #### [facility] , pH (U) 6.0 [pH] Normal 5.0-9.0 [facility] Comment on above: Order Comment: Name Collection Type:: Clean-Voided Midstream Performed By: #### C 4, THYGLOB AB, CHROMATIN, ALANNA, CH50, TPO, C3 #### [facility] , Protein,Urine Negative Normal Negative [facility] Comment on above: Order Comment: Name Collection Type:: Clean-Voided Midstream Performed By: #### C 4, THYGLOB AB, CHROMATIN, ALANNA, CH50, TPO, C3 #### [facility] , RBC LM.HPF (Urine sed) [#/Area] 0 /[HPF] Normal 0-4 [facility] Comment on above: Order Comment: Name Collection Type:: Clean-Voided Midstream Performed By: #### C 4, THYGLOB AB, CHROMATIN, ALANNA, CH50, TPO, C3 #### [facility] , Specificy [place],Urine 1.021 Normal 1.00 1-1.03 0 [facility] Comment on above: Order Comment: Name Collection Type:: Clean-Voided Midstream Performed By: #### C 4, THYGLOB AB, CHROMATIN, ALANNA, CH50, TPO, C3 #### [facility] , Squamous Epithelial Cell,Urine 0-1 Normal 0-2 [facility] Comment on above: Order Comment: Name Collection Type:: Clean-Voided Midstream Performed By: #### C 4, THYGLOB AB, CHROMATIN, ALANNA, CH50, TPO, C3 #### [facility] , Urobilinogen,Urine Normal Normal Normal [facility] Comment on above: Order Comment: Name Collection Type:: Clean-Voided Midstream Performed By: #### C 4, THYGLOB AB, CHROMATIN, ALANNA, CH50, TPO, C3 #### [facility] , WBC,Urine 1-2 Normal 0-4 [facility] Comment on above: Order Comment: Name Collection Type:: Clean-Voided Midstream Performed By: #### C 4, THYGLOB AB, CHROMATIN, ALANNA, CH50, TPO, C3 #### [facility] , Eosinophils Auto (Bld) [#/Vo l]Ordered By: Brian Marquez on 07-30-2022 Eosinophils (Bld) [#/Vol] 0.1 10*3/uL 0.0-0.45 [facility] Eosinophils/100 WBC Auto (Bl d)Ordered By: Brian Marquez on 07-30-2022 Eosinophils/100 WBC (Bld) 1.7 % . [facility] Erythrocyte Sedimentation Ra micha 07-30-2022 ESR (Bld) [Velocity] 60 mm/h High 0-29 [facility] Comment on above: Result Comment: PERF ORMED BY: [facility] [address] [place] [address] PATHOLOGIST SUPERVISOR MODEL MAKING GUEVARA BRUNO M.D. Performed By: #### C 4, THYGLOB AB, CHROMATIN, ALANNA, CH50, TPO, C3 #### [facility] , Erythrocyte distribution wid th Auto (RBC) [Ratio]Ordered By: Brian Marquez on 07-30-2022 Erythrocyte distribution width (RBC) [Ratio] 13.3 % 11.9-15.3 [facility] Erythrocyte sedimentation ra te by Photometric methodOrdered By: Brian Marquez on 07-30-2022 ESR Photometric method (Bld) [Velocity] 60 mm/hr 0-29 [facility] Free T4 (Free Thyroxine)on 0 07-30-2022 Free T4 [Mass/Vol] 0.79 ng/dL Normal 0.61-1.12 [facility] Comment on above: Performed By: #### C 4, THYGLOB AB, CHROMATIN, ALANNA, CH50, TPO, C3 #### [facility] , Gamma globulin/Protein.total in 24 hour Urine by ElectrophoresisOrdered By: Brian Marquez on 07-30-2022 Gamma globulin Elph (24H U) [Mass fraction] 11.4 % . [facility] Globulin Calc (S) [Mass/Vol] Ordered By: Brian Marquez on 07-30-2022 Globulin (S) [Mass/Vol] 2.7 g/dL F [facility] Glucose [Mass/volume] in Ser um or PlasmaOrdered By: Brian Marquez on 07-30-2022 Glucose [Mass/Vol] 89 mg/dL 70-100 [facility] Comment on above: ADA recommended refe rence rangeRandom Glucose Reference Range is dependent on time and content of last meal. Glucose of more than 200 mg/dL in a nonstressed, ambulatory subject supports the diagnosis of Diabetes Mellitus. Hematocrit Auto (Bld) [Volum e fraction]Ordered By: Brian Marquez on 07-30-2022 Hematocrit (Bld) [Volume fraction] 36.9 % 34.0-46.4 [facility] Hemoglobin [Mass/volume] in BloodOrdered By: Brian Marquez on 07-30-2022 Hemoglobin (Bld) [Mass/Vol] 12.6 g/dL 11.8-15.4 [facility] Hepatitis Acute Panelon 07-08 HBsAg Screen Negative Normal Negative [facility] Comment on above: Performed By: #### C 4, THYGLOB AB, CHROMATIN, ALANNA, CH50, TPO, C3 #### [facility] , Hepatitis A Antibody IgM Negative Normal Negative [facility] Comment on above: Performed By: #### C 4, THYGLOB AB, CHROMATIN, ALANNA, CH50, TPO, C3 #### [facility] , Hepatitis B Core Antibody IgM Negative Normal Negative [facility] Comment on above: Performed By: #### C 4, THYGLOB AB, CHROMATIN, ALANNA, CH50, TPO, C3 #### [facility] , Hepatitis C Virus Antibody Reactive Critically abnormal Non Reactive [facility] Comment on above: Performed By: #### C 4, THYGLOB AB, CHROMATIN, ALANNA, CH50, TPO, C3 #### [facility] , Interpretation Normal . [facility] Comment on above: Result Comment: Posi tive HCV antibody screen without the presence of HCV RNA is consistent with a resolved past infection or a false positive HCV antibody. Consider repeat testing after one month. Performed at: - [address] [id number] Mud Grinder: Brednan Odom PhD, Phone: [phone] Performed at: [facility] [id number] Mud Grinder: Wu Nicole MD, Phone: [phone] PERFORMED BY: [address] [address] PATHOLOGIST SUPERVISOR MODEL MAKING GUEVARA BRUNO M.D. Performed By: #### C 4, THYGLOB AB, CHROMATIN, ALANNA, CH50, TPO, C3 #### [facility] , Test Information: Normal . [facility] Comment on above: Result Comment: The quantitative range of this assay is 15 IU/mL to 100 million IU/mL. Performed By: #### C 4, THYGLOB AB, CHROMATIN, ALANNA, CH50, TPO, C3 #### [facility] , IgA [Mass/volume] in Serum o r PlasmaOrdered By: Brian Marquez on 07-30-2022 IgA [Mass/Vol] 194 mg/dL 87-352 [facility] IgG [Mass/volume] in Serum o r PlasmaOrdered By: Brian Marquez on 07-30-2022 IgG [Mass/Vol] 1209 mg/dL [phone] [facility] IgM [Mass/volume] in Serum o r PlasmaOrdered By: Brian Marquez on 07-30-2022 IgM [Mass/Vol] 178 mg/dL 26-217 [facility] Comment on above: Performed at: [employer] [facility] [employer] [facility] [address] [id number] Director: Brendan Odom PhD, Phone: [phone] Immunofixation for UrineOrde red By: Brian Marquez on 07-30-2022 Interpretation Immunofixation (U) [Interp] See comment . [facility] Comment on above: No monoclonality det ected.Performed at: [facility] [address] [id number] Director: Brendan Odom PhD, Phone: [phone] Immunofixation, (ISAAK), Urine on 07-30-2022 Immunofixation, (ISAAK), Urine Normal . [facility] Comment on above: Result Comment: No m onoclonality detected. Performed at: [facility] [address] [id number] Mud Grinder: Brendan Odom PhD, Phone: [phone] Performed By: #### C 4, THYGLOB AB, CHROMATIN, ALANNA, CH50, TPO, C3 #### [facility] , Immunofixation,Serumon 07-30 Immunofixation, Serum Normal . [facility] Comment on above: Result Comment: No m onoclonality detected. Performed By: #### C 4, THYGLOB AB, CHROMATIN, ALANNA, CH50, TPO, C3 #### [facility] , Immunoglobulin A, Serum 194 mg/dL Normal 87-352 F [facility] Comment on above: Performed By: #### C 4, THYGLOB AB, CHROMATIN, ALANNA, CH50, TPO, C3 #### [facility] , Immunoglobulin G 1209 mg/dL Normal 586-1602 [facility] Comment on above: Performed By: #### C 4, THYGLOB AB, CHROMATIN, ALANNA, CH50, TPO, C3 #### [facility] , Immunoglobulin M, Serum 178 mg/dL Normal 26-217 F [facility] Comment on above: Result Comment: Perf ormed at: - [facility] [address] [id number] Mud Grinder: Brendan Odom PhD, Phone: [phone] Performed By: #### C 4, THYGLOB AB, CHROMATIN, ALANNA, CH50, TPO, C3 #### [facility] , Ketones Auto test strip (U) [Mass/Vol]Ordered By: Brian Marquez on 07-30-2022 Ketones (U) [Mass/Vol] Negative Negative [facility] Laboratory - CoagulationOrde red By: Brian Marquez on 07-30-2022 PT Coag (PPP) [Time] 11.8 s 9.0-12.9 [facility] - UrinalysisOrder ed By: Brian Marquez on 07-30-2022 Hyaline casts LM Ql (Urine sed) 0-8 [LPF] 0-8 [facility] Leukocytes [#/volume] correc ranjit for nucleated erythrocytes in Blood by Automated counOrdered By: Brian Marquez on 07-30-2022 WBC corrected for nucl RBC Auto (Bld) [#/Vol] 6.0 10*3/uL 3.8-11.6 [facility] Lupus Anticoagulant Compon 0 07-30-2022 Dilute Prothrombin Time (dPt) 46.9 Normal 0.0-47.6 [facility] Comment on above: Performed By: #### L UPANTCOAG #### [facility] , #### PT #### [facility] [address] dPT Confirm Ratio 1.17 Normal 0.00-1.[address] [facility] Comment on above: Performed By: #### L UPANTCOAG #### [facility] , #### PT #### [address] DRVVT Lupus 41.6 Normal 0.0-47.0 [facility] Comment on above: Performed By: #### L UPANTCOAG #### [facility] , #### PT #### [address] Interpretation Comment: Normal . [facility] Comment on above: Result Comment: No l upus anticoagulant was detected. Performed at: BN - [facility] [address] [id number] Mud Grinder: Wu Nicole MD, Phone: [phone] PERFORMED BY: [place] [address] PATHOLOGIST SUPERVISOR MODEL MAKING GUEVARA BRUNO M.D. Performed By: #### L UPANTCOAG #### [facility] , #### PT #### [address] PTT-LA 42.6 Normal 0.0-43.5 [facility] Comment on above: Performed By: #### L UPANTCOAG #### [facility] , #### PT #### [address] Thrombin Time 16.7 Normal 0.0-23.0 [facility] Comment on above: Performed By: #### L UPANTCOAG #### [facility] , #### PT #### [address] Lupus anticoagulant [Interpr etation] in Platelet poor plasmaOrdered By: Brian Marquez on 07-30-2022 Lupus anticoagulant (PPP) [Interp] Comment: . [facility] Comment on above: No lupus anticoagula nt was detected.Performed at: BN - [facility] [address] [id number] Director: Wu Nicole MD, Phone: [phone] Lymphocytes Auto (Bld) [#/Vo l]Ordered By: Brian Marquez on 07-30-2022 Lymphocytes (Bld) [#/Vol] 1.8 10*3/uL 1.00-4.8 [facility] Lymphocytes/100 WBC Auto (Bl d)Ordered By: Brian Marquez on 07-30-2022 Lymphocytes/100 WBC (Bld) 29.6 % . [facility] MCH Auto (RBC) [Entitic mass ]Ordered By: Brian Marquez on 07-30-2022 MCH (RBC) [Entitic mass] 31.5 pg 24.7-34.3 [facility] MCHC Auto (RBC) [Mass/Vol]Or dered By: Brian Marquez on 07-30-2022 MCHC (RBC) [Mass/Vol] 34.2 g/dL 32.0-35.0 [facility] MCV Auto (RBC) [Entitic vol] Ordered By: Brian Marquez on 07-30-2022 MCV (RBC) [Entitic vol] 91.9 fL 80-100 F [facility] Monocytes Auto (Bld) [#/Vol] Ordered By: Brian Marquez on 07-30-2022 Monocytes (Bld) [#/Vol] 0.5 10*3/uL 0.0-0.8 [facility] Monocytes/100 WBC Auto (Bld) Ordered By: Brian Marquez on 07-30-2022 Monocytes/100 WBC (Bld) 7.7 % . [facility] Neutrophils Auto (Bld) [#/Vo l]Ordered By: Brian Marquez on 07-30-2022 Neutrophils (Bld) [#/Vol] 3.6 10*3/uL 1.8-7.7 [facility] Neutrophils/100 WBC Auto (Bl d)Ordered By: Brian Marquez on 07-30-2022 Neutrophils/100 WBC (Bld) 60.2 % . [facility] Nitrite Test strip Ql (U)Ord ered By: Brian Marquez on 07-30-2022 Nitrite Ql (U) Negative Negative [facility] No Panel InformationOrdered By: Brian Marquez on 07-30-2022 Anti-Nuclear Antibody Comment 2 See comment . [facility] Comment on above: For more information about Hep-2 cell patterns useANApatterns.org, the official website for the InternationalCon6sicuro.itsus on Antinuclear Antibody (ALANNA) Patterns (ICAP). -----A positive ALANNA result may occur in healthy individuals (lowtiter) or be associated with a variety of diseases. Seeinterpretation chart which is not all inclusive:Pattern Antigen Detected Suggested Disease Association Homogeneous DNA(ds,ss), SLE - High titers Nucleosomes, Histones Drug-induced SLE Speckled Sm, ETL DATA ARCHITECT, SCL-70, SLE,MCTD,PSS (diffuse form), SS-A/SS-B Sjogrens Nucleolar SCL-70, PM-1/SCL High titers Scleroderma, PM/DM Centromere Centromere PSS (limited form) w/Crest syndrome variable Nuclear Dot Sp100,b70-zotxab Primary Biliary Cirrhosis Nuclear GP210, Primary Biliary CirrhosisMembrane nalini A,B,C Performed at: [facility] [place] [id number] Director: Brendan Odom PhD, Phone: [phone] Estimated GFR (CKD-EPI) > 60.0 mL/Min [facility] Creatinine Clearance (Chem N/A [facility] Protein Electrophoresis M-Sathya Not observed g/dL Not Observed [facility] Protein Electrophoresis Note See comment . [facility] Comment on above: Protein electrophore sis scan will follow via computer,mail, or supervisor grinding delivery.Performed at: [facility] [place], [place] [id number] Director: rBendan Odom PhD, Phone: [phone] Serum Immunofixation See comment . [facility] Comment on above: No monoclonality det ected. Total Complement (CH50) >60 U/mL >41 F [facility] Comment on above: Age Male Female 1 - 30 days Not Estab. Not Estab. 31 days - 6 months >32 >20 7 months - 17 years >39 >39 >17 years >41 >41 NOTE: The adult ( >17 years ) reference interval range is used to flag abnormals on this report. If the patient is 17 years old or younger, use the table above to determine out of range values.Performed at: [facility] [place], [place] [id number] Director: Brendan Odom PhD, Phone: [phone] Urine Random Prot Electrophor Note See comment . [facility] Comment on above: Protein electrophore sis scan will follow via computer,mail, or supervisor grinding delivery. Nucleated erythrocytes [Pres ence] in Blood by Automated countOrdered By: Brian Marquez on 07-30-2022 Nucleated RBC Auto Ql (Bld) 0.1 /100{WBC} 0-0.5 [facility] Platelet mean volume Auto (B ld) [Entitic vol]Ordered By: Brian Marquez on 07-30-2022 Platelet mean volume (Bld) [Entitic vol] 8.9 fL 6.3-10.7 [facility] Platelet poor plasma interna tional normalized ratio (INR) by coagulation assay (relatOrdered By: Brian Marquez on 07-30-2022 INR Coag (PPP) [Relative time] 1.0 {INR} [facility] Comment on above: INR Therapeutic Rang e A) Pre- and Peroperative OAT started two weeks before surgery. NOT HIP SURGERY: 1.5 - 2.5 HIP SURGERY: 2 - 3B) Primary and secondary prevention of venous THROMBOSIS: 2 - 3C) Active venous thrombosis, pulmonary embolismand prevention of recurrent venous thrombosis: 2 - 3D) Prevention of arterial thromboembolismincluding patients with mechanical heart valves: 3 - 4.5 Platelet poor plasma ratio o f lupus anticoagulant-sensitive activated partial thromboOrdered By: Brian Marquez on 07-30-2022 aPTT.lupus sensitive.excess phospholipid actual/normal Coag (PPP) [Relative time] 46.9 sec 0.0-47.6 [facility] Platelets Auto (Bld) [#/Vol] Ordered By: Brian Marquez on 07-30-2022 Platelets (Bld) [#/Vol] 227 10*3/uL 150-450 [facility] Potassium [Moles/volume] in Serum or PlasmaOrdered By: Brian Marquez on 07-30-2022 Potassium [Moles/Vol] 4.2 mmol/L 3.5-5.1 [facility] Protein Auto test strip (U) [Mass/Vol]Ordered By: Brian Marquez on 07-30-2022 Protein (U) [Mass/Vol] Negative Negative Fi [facility] Protein Electro, Random Urin ever 07-30-2022 Albumin, Urine 35.9 % Normal . [facility] Comment on above: Performed By: #### C 4, THYGLOB AB, CHROMATIN, ALANNA, CH50, TPO, C3 #### [facility] , Toyko-2-Fpxwzvex, Urine 5.4 % Normal . [facility] Comment on above: Performed By: #### C 4, THYGLOB AB, CHROMATIN, ALANNA, CH50, TPO, C3 #### [facility] , Hcoqz-0-Qrodaltb, Urine 19.2 % Normal . [facility] Comment on above: Performed By: #### C 4, THYGLOB AB, CHROMATIN, ALANNA, CH50, TPO, C3 #### [facility] , Beta Globulin, Urine 28.1 % Normal . [facility] Comment on above: Performed By: #### C 4, THYGLOB AB, CHROMATIN, ALANNA, CH50, TPO, C3 #### [facility] , Gamma Globulin, Urine 11.4 % Normal . [facility] Comment on above: Performed By: #### C 4, THYGLOB AB, CHROMATIN, ALANNA, CH50, TPO, C3 #### [facility] , M-Sathya % Not Observed Normal Not Observed [facility] Comment on above: Performed By: #### C 4, THYGLOB AB, CHROMATIN, ALANNA, CH50, TPO, C3 #### [facility] , Please Note: Normal . [facility] Comment on above: Result Comment: Prot ein electrophoresis scan will follow via computer, mail, or supervisor grinding delivery. PERFORMED BY: [facility] [address] [place] [address] PATHOLOGIST SUPERVISOR MODEL MAKING GUEVARA BRUNO M.D. Performed By: #### C 4, THYGLOB AB, CHROMATIN, ALANNA, CH50, TPO, C3 #### [facility] , Protein (U) [Mass/Vol] 15.9 mg/dL Normal Not Estab. [facility] Comment on above: Performed By: #### C 4, THYGLOB AB, CHROMATIN, ALANNA, CH50, TPO, C3 #### [facility] , Protein Electrophoresis, Ser umon 07-30-2022 Albumin [Mass/Vol] 3.5 g/dL Normal 2.9-4.4 [facility] Comment on above: Performed By: #### C 4, THYGLOB AB, CHROMATIN, ALANNA, CH50, TPO, C3 #### [facility] , Albumin/Globulin [Mass ratio] 1.0 {ratio} Normal 0.7-1.7 [facility] Comment on above: Performed By: #### C 4, THYGLOB AB, CHROMATIN, ALANNA, CH50, TPO, C3 #### [facility] , Gtfyb-8-Jivgjufe 0.3 g/dL Normal 0.0-0.4 [facility] Comment on above: Performed By: #### C 4, THYGLOB AB, CHROMATIN, ALANNA, CH50, TPO, C3 #### [facility] , Viaof-0-Irqcrnxm 0.9 g/dL Normal 0.4-1.0 [facility] Comment on above: Performed By: #### C 4, THYGLOB AB, CHROMATIN, ALANNA, CH50, TPO, C3 #### [facility] , Beta Globulin 1.0 g/dL Normal 0.7-1.3 [facility] Comment on above: Performed By: #### C 4, THYGLOB AB, CHROMATIN, ALANNA, CH50, TPO, C3 #### [facility] , Gamma Globulin 1.3 g/dL Normal 0.4-1.8 [facility] Comment on above: Performed By: #### C 4, THYGLOB AB, CHROMATIN, ALANNA, CH50, TPO, C3 #### [facility] , Globulin (S) [Mass/Vol] 3.5 g/dL Normal 2.2-3.9 [facility] Comment on above: Performed By: #### C 4, THYGLOB AB, CHROMATIN, ALANNA, CH50, TPO, C3 #### [facility] , M-Sathya Not Observed Normal Not Observed [facility] Comment on above: Performed By: #### C 4, THYGLOB AB, CHROMATIN, ALANNA, CH50, TPO, C3 #### [facility] , Protein [Mass/Vol] 7.0 g/dL Normal 6.0-8.5 [facility] Comment on above: Performed By: #### C 4, THYGLOB AB, CHROMATIN, ALANNA, CH50, TPO, C3 #### [facility] , SPE-Note Normal . [facility] Comment on above: Result Comment: Prot ein electrophoresis scan will follow via computer, mail, or supervisor grinding delivery. Performed at: [facility] [address] [id number] Mud Grinder: Brendan Odom PhD, Phone: [phone] PERFORMED BY: [address] [address] PATHOLOGIST SUPERVISOR MODEL MAKING GUEVARA BRUNO M.D. Performed By: #### C 4, THYGLOB AB, CHROMATIN, ALANNA, CH50, TPO, C3 #### [facility] , Protein [Mass/volume] in Ser um or PlasmaOrdered By: Brian Marquez on 07-30-2022 Protein [Mass/Vol] 6.8 g/dL 6.4-8.9 [facility] Protein [Mass/Vol] 7.0 g/dL 6.0-8.5 [facility] Protein [Mass/volume] in Uri neOrdered By: Brian Marquez on 07-30-2022 Protein (U) [Mass/Vol] 15.9 mg/dL Not Estab. [facility] Protein.monoclonal/Protein.t otal in 24 hour Urine by ElectrophoresisOrdered By: Brian Marquez on 07-30-2022 Protein.monoclonal Elph (24H U) [Mass fraction] Not observed % Not Observed [facility] Prothrombin Time INRon 07-30 INR Coag (PPP) [Relative time] 1.0 {INR} Normal [facility] Comment on above: Result Comment: INR Therapeutic Range A) Pre- and Peroperative OAT started two weeks before surgery. NOT HIP SURGERY: 1.5 - 2.5 HIP SURGERY: 2 - 3 B) Primary and secondary prevention of venous THROMBOSIS: 2 - 3 C) Active venous thrombosis, pulmonary embolism and prevention of recurrent venous thrombosis: 2 - 3 D) Prevention of arterial thromboembolism including patients with mechanical heart valves: 3 - 4.5 PERFORMED BY: [place] [address] PATHOLOGIST SUPERVISOR MODEL MAKING GUEVARA BRUNO M.D. Performed By: #### L UPANTCOAG #### [facility] , #### PT #### [facility] [address] [place] [address] PT Coag (PPP) [Time] 11.8 s Normal 9.0-12.9 [facility] Comment on above: Performed By: #### L UPANTCOAG #### [facility] , #### PT #### [facility] [address] [place] [address] RBC Auto (Bld) [#/Vol]Ordere d By: Brian Marquez on 07-30-2022 RBC (Bld) [#/Vol] 4.02 10*6/uL 3.60-5.00 [facility] RPR w/rfx to Quant TP Abson 07-30-2022 RPR, Rfx Quant RPR Non-Reactive Normal Non Reactive [facility] Comment on above: Result Comment: Perf ormed at: CB - [facility] [address] [id number] Mud Grinder: Brendan Odom PhD, Phone: [phone] PERFORMED BY: [place] [address] PATHOLOGIST SUPERVISOR MODEL MAKING GUEVARA BRUNO M.D. Performed By: #### C 4, THYGLOB AB, CHROMATIN, ALANNA, CH50, TPO, C3 #### [facility] , Reagin Ab [Presence] in Seru m by RPROrdered By: Brian Marquez on 07-30-2022 Reagin Ab RPR Ql (S) Non-Reactive Non Reactive [facility] Comment on above: Performed at: - [address] [id number] Director: Brendan Odom PhD, Phone: [phone] Serum globulin measurement ( mass/volume)Ordered By: Brian Marquez on 07-30-2022 Globulin (S) [Mass/Vol] 3.5 g/dL 2.2-3.9 F [facility] Serum homogeneous pattern an tinuclear antibody (ALANNA) titerOrdered By: Brian Marquez on 07-30-2022 Homogenous nuclear Ab pattern (S) [Titer] N/A [facility] Serum nuclear antibody titer Ordered By: Brian Marquez on 07-30-2022 Nuclear Ab (S) [Titer] Positive . [facility] Comment on above: Negative <1:80 Borde rline 1:80 Positive >1:80 Serum or plasma albumin/glob ulin mass ratioOrdered By: Brian Marquez on 07-30-2022 Albumin/Globulin [Mass ratio] 1.5 {ratio} [facility] Albumin/Globulin [Mass ratio] 1.0 {ratio} 0.7-1.7 [facility] Serum or plasma alpha 1 glob ulin measurement by electrophoresis (mass/volume)Ordered By: Brian Marquez on 07-30-2022 Alpha 1 globulin Elph [Mass/Vol] 0.3 g/dL 0.0-0.4 [facility] Serum or plasma alpha 2 glob ulin measurement by electrophoresis (mass/volume)Ordered By: Brian Marquez on 07-30-2022 Alpha 2 globulin Elph [Mass/Vol] 0.9 g/dL 0.4-1.0 [facility] Serum or plasma anion gap de terminationOrdered By: Brian Marquez on 07-30-2022 Anion gap [Moles/Vol] 10.9 mmol/L 6.0-15.0 [facility] Serum or plasma beta globuli n measurement by electrophoresis (mass/volume)Ordered By: Brian Marquez on 07-30-2022 Beta globulin Elph [Mass/Vol] 1.0 g/dL 0.7-1.3 [facility] Serum or plasma chromatin an tibody assay (units/volume)Ordered By: Brian Marquez on 07-30-2022 Chromatin Ab Qn <0.2 AI 0.0-0.9 [facility] Comment on above: Performed at: [facility] [place] [id number] Director: Brendan Odom PhD, Phone: [phone] Serum or plasma complement C 3 measurement (mass/volume)Ordered By: Brian Marquez on 07-30-2022 Complement C3 [Mass/Vol] 161 mg/dL 82-167 [facility] Comment on above: Performed at: [facility] [place], [place] [id number] Director: Brendan Odom PhD, Phone: [phone] Serum or plasma complement C 4 measurement (mass/volume)Ordered By: Brian Marquez on 07-30-2022 Complement C4 [Mass/Vol] 24 mg/dL 12-38 [facility] Serum or plasma gamma globul in measurement by electrophoresis (mass/volume)Ordered By: Brian Marquez on 07-30-2022 Gamma globulin Elph [Mass/Vol] 1.3 g/dL 0.4-1.8 [facility] Serum or plasma thyroglobuli n antibody assay (units/volume)Ordered By: Brian Marquez on 07-30-2022 Thyroglobulin Ab Qn [IU]/mL 0.0-0.9 [facility] Comment on above: Thyroglobulin Antibo dy measured by [employer] ITM SolutionsMethodologyPerformed at: [id number] [place] [id number] Director: Brendan Odom PhD, Phone: [phone] Serum or plasma thyroperoxid ase antibody assay (units/volume)Ordered By: Brian Marquez on 07-30-2022 TPO Ab Qn [IU]/mL 0-34 [facility] Comment on above: Performed at: [facility] [place], [place] [id number] Director: Brendan Odom PhD, Phone: [phone] Serum speckled pattern antin uclear antibody (ALANNA) titerOrdered By: Brian Marquez on 07-30-2022 Speckled nuclear Ab pattern (S) [Titer] 1:640 . [facility] Comment on above: ICAP nomenclature: A C-2,4,5,29 Sodium [Moles/volume] in Ser um or PlasmaOrdered By: Brian Marquez on 07-30-2022 Sodium [Moles/Vol] 140 mmol/L 136-145 [facility] Specific gravity Auto test s trip (U) [Rel density]Ordered By: Brian Marquez on 07-30-2022 Specific gravity (U) [Rel density] 1.021 1.001-1.03 0 [facility] Squamous epithelial cells de tection in urine sediment by light microscopyOrdered By: Brian Marquez on 07-30-2022 Epithelial cells.squamous LM Ql (Urine sed) 0-1 [HPF] 0-2 [facility] TT plasOrdered By: Brian ramirez on 07-30-2022 Thrombin time Coag (PPP) [Time] 16.7 sec 0.0-23.0 [facility] Thyroid Peroxidase Antibodie son 07-30-2022 Thyroid Peroxidase Antibodies <9 Normal 0-34 [facility] Comment on above: Result Comment: Perf ormed at: - [facility] [address] [id number] Mud Grinder: Brendan Odom PhD, Phone: [phone] Performed By: #### C 4, THYGLOB AB, CHROMATIN, ALANNA, CH50, TPO, C3 #### [facility] , Thyroid Stimulating Hormoneo n 07-30-2022 TSH Qn 1.95 m[IU]/L Normal 0.45-5.33 [facility] Comment on above: Result Comment: PERF ORMED BY: [facility] [address] [place] [address] PATHOLOGIST SUPERVISOR MODEL MAKING GUEVARA BRUNO M.D. Performed By: #### C 4, THYGLOB AB, CHROMATIN, ALANNA, CH50, TPO, C3 #### [facility] , Thyrotropin [Units/volume] i n Serum or PlasmaOrdered By: Brian Marquez on 07-30-2022 TSH Qn 1.95 m[IU]/L 0.45-5.33 [facility] Thyroxine (T4) free [Mass/vo lume] in Serum or PlasmaOrdered By: Brian Marquez on 07-30-2022 Free T4 [Mass/Vol] 0.79 ng/dL 0.61-1.12 [facility] Urea nitrogen [Mass/volume] in Serum or PlasmaOrdered By: Brian Marquez on 07-30-2022 Urea nitrogen [Mass/Vol] 9 mg/dL 7- [facility] Urine alpha 1 globulin/total protein by electrophoresisOrdered By: Brian Marquez on 07-30-2022 Alpha 1 globulin Elph (U) [Mass fraction] 5.4 % . [facility] Urine alpha 2 globulin/total protein ratio by electrophoresisOrdered By: Brian Marquez on 07-30-2022 Alpha 2 globulin Elph (U) [Mass fraction] 19.2 % . [facility] Urine bacteria detection by automated methodOrdered By: Brian Marquez on 07-30-2022 Bacteria Auto Ql (U) None seen None [facility]en [facility] Urine beta globulin measurem ent by electrophoresis (mass/volume)Ordered By: Brian Marquez on 07-30-2022 Beta globulin Elph (U) [Mass/Vol] 28.1 % . [facility] Urine clarity by refractomet ry automatedOrdered By: Brian Marquez on 07-30-2022 Clarity Refractometry automated (U) Clear Clear [facility] Urine glucose measurement by automated test strip (mass/volume)Ordered By: Brian Marquez on 07-30-2022 Glucose Auto test strip (U) [Mass/Vol] Normal mg/dL Normal [facility] Urine hemoglobin detection b y automated test stripOrdered By: Brian Marquez on 07-30-2022 Hemoglobin Auto test strip Ql (U) Negative Negative [facility] Urine leukocyte esterase det ection by automated test stripOrdered By: Brian Marquez on 07-30-2022 Leukocyte esterase Auto test strip Ql (U) Negative Negative [facility] Urobilinogen Auto test strip (U) [Mass/Vol]Ordered By: Brian Marquez on 07-30-2022 Urobilinogen (U) [Mass/Vol] Normal mg/dL Normal [facility] Vitamin B12on 07-30-2022 Cobalamin (Vitamin B12) [Mass/Vol] 224 pg/mL Normal 180-914 [facility] Comment on above: Performed By: #### C 4, THYGLOB AB, CHROMATIN, ALANNA, CH50, TPO, C3 #### [facility] , Vitamin B12 ser/plasOrdered By: Malika Lei on 07-30-2022 Cobalamin (Vitamin B12) [Mass/Vol] 224 pg/mL 180-914 [facility] WBC Auto (Bld) [#/Vol]Ordere d By: Brian Marquez on 07-30-2022 WBC (Bld) [#/Vol] 6.0 10*3/uL 3.8-11.6 [facility] aPTT.lupus sensitive (LA scr een)Ordered By: Brian Marquez on 07-30-2022 aPTT.lupus sensitive Coag (PPP) [Time] 42.6 sec 0.0-43.5 [facility] aPTT.lupus sensitive/aPTT.pratik pus sensitive W excess phospholipid (screen to confirm raOrdered By: Brian Marquez on 07-30-2022 aPTT.lupus sensitive/aPTT.lupus sensitive W excess phospholipid Coag (PPP) [Ratio] 1.17 Ratio 0.00-1.34 [facility] pH Auto test strip (U)Ordere d By: Brian Marquez on 07-30-2022 pH (U) 6.0 [pH] 5.0-9.0 [facility] Activated partial thrombopla stin time (aPTT) in platelet poor plasma by coagulation aOrdered By: Michelle Fernandez on 07-25-2022 aPTT Coag (PPP) [Time] 48.3 s 25.1-36.5 [facility] Alanine aminotransferase [En zymatic activity/volume] in Serum or PlasmaOrdered By: Michelle Fernandez on 07-25-2022 ALT [Catalytic activity/Vol] 17 U/L 7-52 [facility] Albumin [Mass/volume] in Ser um or Plasma by Bromocresol green (BCG) dye binding methoOrdered By: Michelle Fernandez on 07-25-2022 Albumin BCG dye [Mass/Vol] 4.3 g/dL 3.5-5.7 [facility] Alkaline phosphatase [Enzyma tic activity/volume] in Serum or PlasmaOrdered By: Michelle Fernandez on 07-25-2022 ALP [Catalytic activity/Vol] 83 U/L 34-104 [facility] Aspartate aminotransferase [ Enzymatic activity/volume] in Serum or PlasmaOrdered By: Michelle Fernandez on 07-25-2022 AST [Catalytic activity/Vol] 19 U/L 13-39 [facility] B-Type Natriuretic Peptideon 07-25-2022 Natriuretic peptide B (Bld) [Mass/Vol] 28.0 pg/mL Normal 5-100 [facility] Comment on above: Result Comment: PERF ORMED BY: [facility] [address] [place] [address] PATHOLOGIST SUPERVISOR MODEL MAKING GUEVARA BRUNO M.D. Performed By: #### C 4, THYGLOB AB, CHROMATIN, ALANNA, CH50, TPO, C3 #### [facility] , Basophils Auto (Bld) [#/Vol] Ordered By: Michelle Fernandez on 07-25-2022 Basophils (Bld) [#/Vol] 0.1 10*3/uL 0.0-0.2 [facility] Basophils/100 WBC Auto (Bld) Ordered By: [facility] 07-25-2022 Basophils/100 WBC (Bld) 1.0 % . [facility] [facility] Bilirubin.total [Mass/volume ] in Serum or PlasmaOrdered By: Michelle Fernandez on 07-25-2022 Bilirubin [Mass/Vol] 0.6 mg/dL 0.3-1.0 [facility] Calcium [Mass/volume] in Ser um or PlasmaOrdered By: Michelle Fernandez on 07-25-2022 Calcium [Mass/Vol] 9.2 mg/dL 8.6-10.3 [facility] Carbon dioxide, total [Moles /volume] in Serum or PlasmaOrdered By: Michelle Fernandez on 07-25-2022 CO2 [Moles/Vol] 27.1 mmol/L 21.0-31.0 [facility] Chloride [Moles/volume] in S kimber[place] or PlasmaOrdered By: Michelle Fernandez on 07-25-2022 Chloride [Moles/Vol] 102 mmol/L 98-107 [facility] Complete Blood Count Auto Di ffon 07-25-2022 Basophils (Bld) [#/Vol] 0.1 10*3/uL Normal 0.0-0.2 [facility] Comment on above: Result Comment: PERF ORMED BY: [facility] [address] [place] [address] PATHOLOGIST SUPERVISOR [employer]KING GUEVARA BRUNO M.D. Performed By: #### C 4, THYGLOB AB, CHROMATIN, ALANNA, CH50, TPO, C3 #### [facility] , Basophils/100 WBC (Bld) 1.0 % Normal . F [facility] Comment on above: Performed By: #### C 4, THYGLOB AB, CHROMATIN, ALANNA, CH50, TPO, C3 #### [facility] , Eosinophils (Bld) [#/Vol] 0.1 10*3/uL Normal 0.0-0.45 [facility] Comment on above: Performed By: #### C 4, THYGLOB AB, CHROMATIN, ALANNA, CH50, TPO, C3 #### [facility] , Eosinophils/100 WBC (Bld) 1.2 % Normal . [facility] Comment on above: Performed By: #### C 4, THYGLOB AB, CHROMATIN, ALANNA, CH50, TPO, C3 #### [facility] , Erythrocyte distribution width (RBC) [Ratio] 13.1 % Normal 11.9-15.3 [facility] Comment on above: Performed By: #### C 4, THYGLOB AB, CHROMATIN, ALANNA, CH50, TPO, C3 #### [facility] , Hematocrit (Bld) [Volume fraction] 38.8 % Normal 34.0-46.4 [facility] Comment on above: Performed By: #### C 4, THYGLOB AB, CHROMATIN, ALANNA, CH50, TPO, C3 #### [facility] , Hemoglobin (Bld) [Mass/Vol] 12.8 g/dL Normal 11.8-15.4 [facility] Comment on above: Performed By: #### C 4, THYGLOB AB, CHROMATIN, ALANNA, CH50, TPO, C3 #### [facility] , Lymphocytes (Bld) [#/Vol] 1.8 10*3/uL Normal 1.00-4.8 [facility] Comment on above: Performed By: #### C 4, THYGLOB AB, CHROMATIN, ALANNA, CH50, TPO, C3 #### [facility] , Lymphocytes/100 WBC (Bld) 28.9 % Normal . [facility] Comment on above: Performed By: #### C 4, THYGLOB AB, CHROMATIN, ALANNA, CH50, TPO, C3 #### [facility] , MCH (RBC) [Entitic mass] 30.5 pg Normal 24.7-34.3 [facility] Comment on above: Performed By: #### C 4, THYGLOB AB, CHROMATIN, ALANNA, CH50, TPO, C3 #### [facility] , MCV (RBC) [Entitic vol] 92.2 fL Normal 80-100 F [facility] Comment on above: Performed By: #### C 4, THYGLOB AB, CHROMATIN, ALANNA, CH50, TPO, C3 #### [facility] , Mean Corpuscular HGB Conc 33.1 g/dL Normal 32.0-35.0 [facility] Comment on above: Performed By: #### C 4, THYGLOB AB, CHROMATIN, ALANNA, CH50, TPO, C3 #### [facility] , Monocytes (Bld) [#/Vol] 0.4 10*3/uL Normal 0.0-0.8 [facility] Comment on above: Performed By: #### C 4, THYGLOB AB, CHROMATIN, ALANNA, CH50, TPO, C3 #### [facility] , Monocytes/100 WBC (Bld) 17.53 % Normal 0.00-20.00 [facility] Comment on above: Performed By: #### C 4, THYGLOB AB, CHROMATIN, ALANNA, CH50, TPO, C3 #### [facility] , Monocytes/100 WBC (Bld) 6.4 % Normal . [facility] Comment on above: Performed By: #### C 4, THYGLOB AB, CHROMATIN, ALANNA, CH50, TPO, C3 #### [facility] , Neutrophils (Bld) [#/Vol] 3.8 10*3/uL Normal 1.8-7.7 [facility] Comment on above: Performed By: #### C 4, THYGLOB AB, CHROMATIN, ALANNA, CH50, TPO, C3 #### [facility] , Neutrophils/100 WBC (Bld) 62.5 % Normal . [facility] Comment on above: Performed By: #### C 4, THYGLOB AB, CHROMATIN, ALANNA, CH50, TPO, C3 #### [facility] , NRBC% 0.1 /100{WBC} Normal 0-0.5 [facility] Comment on above: Performed By: #### C 4, THYGLOB AB, CHROMATIN, ALANNA, CH50, TPO, C3 #### [facility] , Platelet mean volume (Bld) [Entitic vol] 8.4 fL Normal 6.3-10.7 [facility] Comment on above: Performed By: #### C 4, THYGLOB AB, CHROMATIN, ALANNA, CH50, TPO, C3 #### [facility] , Platelets (Bld) [#/Vol] 233 10*3/uL Normal 150-450 [facility] Comment on above: Performed By: #### C 4, THYGLOB AB, CHROMATIN, ALANNA, CH50, TPO, C3 #### [facility] , RBC (Bld) [#/Vol] 4.21 10*6/uL Normal 3.60-5.00 [facility] Comment on above: Performed By: #### C 4, THYGLOB AB, CHROMATIN, ALANNA, CH50, TPO, C3 #### [facility] , WBC (Bld) [#/Vol] 6.1 10*3/uL Normal 3.8-11.6 [facility] Comment on above: Performed By: #### C 4, THYGLOB AB, CHROMATIN, ALANNA, CH50, TPO, C3 #### [facility] , Comprehensive Metabolic Pane rosmery 07-25-2022 Albumin [Mass/Vol] 4.3 g/dL Normal 3.5-5.7 [facility] Comment on above: Performed By: #### C 4, THYGLOB AB, CHROMATIN, ALANNA, CH50, TPO, C3 #### [facility] , Albumin/Globulin [Mass ratio] 1.3 {ratio} Normal [facility] Comment on above: Performed By: #### C 4, THYGLOB AB, CHROMATIN, ALANNA, CH50, TPO, C3 #### [facility] , ALP [Catalytic activity/Vol] 83 U/L Normal 34-104 [facility] Comment on above: Performed By: #### C 4, THYGLOB AB, CHROMATIN, ALANNA, CH50, TPO, C3 #### [facility] , ALT [Catalytic activity/Vol] 17 U/L Normal 7-52 [facility] Comment on above: Performed By: #### C 4, THYGLOB AB, CHROMATIN, ALANNA, CH50, TPO, C3 #### [facility] , Anion gap [Moles/Vol] 13.0 mmol/L Normal 6.0-15.0 [facility] Comment on above: Performed By: #### C 4, THYGLOB AB, CHROMATIN, ALANNA, CH50, TPO, C3 #### [facility] , AST [Catalytic activity/Vol] 19 U/L Normal 13-39 [facility] Comment on above: Performed By: #### C 4, THYGLOB AB, CHROMATIN, ALANNA, CH50, TPO, C3 #### [facility] , Bilirubin [Mass/Vol] 0.6 mg/dL Normal 0.3-1.0 [facility] Comment on above: Performed By: #### C 4, THYGLOB AB, CHROMATIN, ALANNA, CH50, TPO, C3 #### [facility] , Calcium [Mass/Vol] 9.2 mg/dL Normal 8.6-10.3 [facility] Comment on above: Performed By: #### C 4, THYGLOB AB, CHROMATIN, ALANNA, CH50, TPO, C3 #### [facility] , Chloride [Moles/Vol] 102 mmol/L Normal 98-107 [facility] Comment on above: Performed By: #### C 4, THYGLOB AB, CHROMATIN, ALANNA, CH50, TPO, C3 #### [facility] , CO2 [Moles/Vol] 27.1 mmol/L Normal 21.0-31.0 [facility] Comment on above: Performed By: #### C 4, THYGLOB AB, CHROMATIN, ALANNA, CH50, TPO, C3 #### [facility] , Creatinine [Mass/Vol] 0.66 mg/dL Normal 0.60-1.20 [facility] Comment on above: Performed By: #### C 4, THYGLOB AB, CHROMATIN, ALANNA, CH50, TPO, C3 #### [facility] , Creatinine Clr Calc Pharmacy 107.40 Normal [facility] Comment on above: Result Comment: PERF ORMED BY: [place] [address] [place] [address] PATHOLOGIST SUPERVISOR [employer]DEL [employer]KING GUEVARA BRUNO M.D. Performed By: #### C 4, THYGLOB AB, CHROMATIN, ALANNA, CH50, TPO, C3 #### [facility] , GFR/1.73 sq M.predicted MDRD (S/P/Bld) [Vol rate/Area] mL/min/{1.73_m2} Normal [facility] Comment on above: Performed By: #### C 4, THYGLOB AB, CHROMATIN, ALANNA, CH50, TPO, C3 #### [facility] , Globulin (S) [Mass/Vol] 3.4 g/dL Normal [facility] Comment on above: Performed By: #### C 4, THYGLOB AB, CHROMATIN, ALANNA, CH50, TPO, C3 #### [facility] , Glucose [Mass/Vol] 90 mg/dL Normal 70-100 [facility] Comment on above: Result Comment: [place] Glucose Reference Range is dependent on time and content of last meal. Glucose of more than 200 mg/dL in a nonstressed, ambulatory subject supports the diagnosis of Diabetes Mellitus. ADA recommended reference range Performed By: #### C 4, THYGLOB AB, CHROMATIN, AALNNA, CH50, TPO, C3 #### [facility] , Potassium [Moles/Vol] 4.1 mmol/L Normal 3.5-5.1 [facility] Comment on above: Performed By: #### C 4, THYGLOB AB, CHROMATIN, ALANNA, CH50, TPO, C3 #### [facility] , Protein [Mass/Vol] 7.7 g/dL Normal 6.4-8.9 [facility] Comment on above: Performed By: #### C 4, THYGLOB AB, CHROMATIN, ALANNA, CH50, TPO, C3 #### [facility] , Sodium [Moles/Vol] 138 mmol/L Normal 136-145 [facility] Comment on above: Performed By: #### C 4, THYGLOB AB, CHROMATIN, ALANNA, CH50, TPO, C3 #### [facility] , Urea nitrogen [Mass/Vol] 8 mg/dL Normal 7-25 [facility] Comment on above: Performed By: #### C 4, THYGLOB AB, CHROMATIN, ALANNA, CH50, TPO, C3 #### [facility] , Creatine Kinaseon 07-25-2022 CK [Catalytic activity/Vol] 86 U/L Normal 30-223 [facility] Comment on above: Performed By: #### C 4, THYGLOB AB, CHROMATIN, ALANNA, CH50, TPO, C3 #### [facility] , Creatine kinase [Enzymatic a ctivity/volume] in Serum or PlasmaOrdered By: Michelle Fernandez on 07-25-2022 CK [Catalytic activity/Vol] 86 U/L [facility] Creatinine [Mass/volume] in Serum or PlasmaOrdered By: Michelle Fernandez on 07-25-2022 Creatinine [Mass/Vol] 0.66 mg/dL 0.60-1.20 [facility] ECG 12 lead ECGon 07-25-2022 ECG 12 lead ECG [facility] [place] [address] Electrocardiograph Report Signed Patient: Silvia Leung MR#: [id number] 2 : 1960 Acct:[id number] Age/Sex: 62 / F ADM Date: 07/25/22 Loc: ER Room: Type: [facility] ER Attending Dr: Ordering Provider: Michelle Fernandez APRN Date of Service: 07/25/22 ECG/ECG 12 lead ECG: Extremity Problem, Nontraumatic Copies to: Test Reason : Blood Pressure : / mmHG Vent. Rate : 081 BPM Atrial Rate : 081 BPM P-R Int : 198 ms QRS Dur : 068 ms QT Int : 360 ms P-R-T Axes : 063 -18 047 degrees QTc Int : 418 ms Normal sinus rhythm Low voltage QRS Borderline ECG When compared with ECG of 30-DEC-2014 17:27, No significant change was found Confirmed by Abebe Cronin DO ([id number]) on 07/25/2022 3:11:41 PM Referred By: Electronically Signed By:Abebe Cronin DO Transcribed By: MUS Signed By Abebe Cronin DO 3 1511 Normal [facility] Eosinophils Auto (Bld) [#/Vo l]Ordered By: Michelle Fernandez on 07-25-2022 Eosinophils (Bld) [#/Vol] 0.1 10*3/uL 0.0-0.45 [facility] Eosinophils/100 WBC Auto (Bl d)Ordered By: Michelle Fernandez on 07-25-2022 Eosinophils/100 WBC (Bld) 1.2 % . [facility] Erythrocyte distribution wid th Auto (RBC) [Ratio]Ordered By: Michelle Fernandez on 07-25-2022 Erythrocyte distribution width (RBC) [Ratio] 13.1 % 11.9-15.3 [facility] Globulin Calc (S) [Mass/Vol] Ordered By: Michelle Fernandez on 07-25-2022 Globulin (S) [Mass/Vol] 3.4 g/dL F [facility] Glucose [Mass/volume] in Ser um or PlasmaOrdered By: Michelle Fernandez on 07-25-2022 Glucose [Mass/Vol] 90 mg/dL 70-100 [facility] Comment on above: ADA recommended refe rence rangeRandom Glucose Reference Range is dependent on time and content of last meal. Glucose of more than 200 mg/dL in a nonstressed, ambulatory subject supports the diagnosis of Diabetes Mellitus. Hematocrit Auto (Bld) [Volum e fraction]Ordered By: Michelle Fernandez on 07-25-2022 Hematocrit (Bld) [Volume fraction] 38.8 % 34.0-46.4 [facility] Hemoglobin [Mass/volume] in BloodOrdered By: Michelle Fernandez 07-25-2022 Hemoglobin (Bld) [Mass/Vol] 12.8 g/dL 11.8-15.4 [facility] Laboratory - CoagulationOrde red By: Michelle Fernandez on 07-25-2022 PT Coag (PPP) [Time] 12.2 s 9.0-12.9 [facility] Leukocytes [#/volume] correc ranjit for nucleated erythrocytes in Blood by Automated counOrdered By: Michelle Fernandez on 07-25-2022 WBC corrected for nucl RBC Auto (Bld) [#/Vol] 6.1 10*3/uL 3.8-11.6 [facility] Lymphocytes Auto (Bld) [#/Vo l]Ordered By: Michelle Fernandez on 07-25-2022 Lymphocytes (Bld) [#/Vol] 1.8 10*3/uL 1.00-4.8 [facility] Lymphocytes/100 WBC Auto (Bl d)Ordered By: Michelle Fernandez on 07-25-2022 Lymphocytes/100 WBC (Bld) 28.9 % . [facility] MCH Auto (RBC) [Entitic mass ]Ordered By: Michelle Fernandez on 07-25-2022 MCH (RBC) [Entitic mass] 30.5 pg 24.7-34.3 [facility] MCHC Auto (RBC) [Mass/Vol]Or dered By: Michelle Fernandez on 07-25-2022 MCHC (RBC) [Mass/Vol] 33.1 g/dL 32.0-35.0 [facility] MCV Auto (RBC) [Entitic vol] Ordered By: Michelle Fernandez on 07-25-2022 MCV (RBC) [Entitic vol] 92.2 fL 80-100 [facility] Monocyte distribution width [Entitic volume] in Blood by AutomatedOrdered By: Michelle Fernandez on 07-25-2022 Monocyte distribution width Auto (Bld) [Entitic vol] 17.53 % 0.00-20.00 [facility] Monocytes Auto (Bld) [#/Vol] Ordered By: Michelle Fernandez on 07-25-2022 Monocytes (Bld) [#/Vol] 0.4 10*3/uL 0.0-0.8 [facility] Monocytes/100 WBC Auto (Bld) Ordered By: Michelle Fernandez on 07-25-2022 Monocytes/100 WBC (Bld) 6.4 % . [facility] Natriuretic peptide B [Mass/ Vol]Ordered By: Michelle Fernandez on 04-19-2023 Natriuretic peptide B (Bld) [Mass/Vol] 28.0 pg/mL 5-100 [facility] Neutrophils Auto (Bld) [#/Vo l]Ordered By: Michelle Fernandez on 07-25-2022 Neutrophils (Bld) [#/Vol] 3.8 10*3/uL 1.8-7.7 [facility] Neutrophils/100 WBC Auto (Bl d)Ordered By: Michelle Fernandez on 07-25-2022 Neutrophils/100 WBC (Bld) 62.5 % . [facility] No Panel InformationOrdered By: Michelle Fernandez on 07-25-2022 Estimated GFR (CKD-EPI) > 60.0 mL/Min [facility] Creatinine Clearance (Chem 107.40 [facility] Nucleated erythrocytes [Pres ence] in Blood by Automated countOrdered By: Michelle Fernandez on 07-25-2022 Nucleated RBC Auto Ql (Bld) 0.1 /100{WBC} 0-0.5 [facility] Partial Thromboplastin Timeo n 07-25-2022 aPTT Coag (Bld) [Time] 48.3 s High 25.1-36.5 [facility] Comment on above: Result Comment: PERF ORMED BY: [facility] [address] [place] [address] PATHOLOGIST SUPERVISOR [employer]DEL MAKING GUEVARA BRUNO M.D. Performed By: #### C 4, THYGLOB AB, CHROMATIN, ALANNA, CH50, TPO, C3 #### [facility] , Platelet mean volume Auto (B ld) [Entitic vol]Ordered By: Michelle Fernandez on 07-25-2022 Platelet mean volume (Bld) [Entitic vol] 8.4 fL 6.3-10.7 [facility] Platelet poor plasma interna tional normalized ratio (INR) by coagulation assay (relatOrdered By: Michelle Fernandez on 07-25-2022 INR Coag (PPP) [Relative time] 1.1 {INR} [facility] Comment on above: INR Therapeutic Rang e A) Pre- and Peroperative OAT started two weeks before surgery. NOT HIP SURGERY: 1.5 - 2.5 HIP SURGERY: 2 - 3B) Primary and secondary prevention of venous THROMBOSIS: 2 - 3C) Active venous thrombosis, pulmonary embolismand prevention of recurrent venous thrombosis: 2 - 3D) Prevention of arterial thromboembolismincluding patients with mechanical heart valves: 3 - 4.5 Platelets Auto (Bld) [#/Vol] Ordered By: Michelle Fernandez on 07-25-2022 Platelets (Bld) [#/Vol] 233 10*3/uL 150-450 [facility] Potassium [Moles/volume] in Serum or PlasmaOrdered By: Michelle Fernandez on 07-25-2022 Potassium [Moles/Vol] 4.1 mmol/L 3.5-5.1 [facility] Protein [Mass/volume] in Ser um or PlasmaOrdered By: Michelle Fernandez on 07-25-2022 Protein [Mass/Vol] 7.7 g/dL 6.4-8.9 [facility] Prothrombin Time INRon 07-25 INR Coag (PPP) [Relative time] 1.1 {INR} Normal [facility] Comment on above: Result Comment: INR Therapeutic Range A) Pre- and Peroperative OAT started two weeks before surgery. NOT HIP SURGERY: 1.5 - 2.5 HIP SURGERY: 2 - 3 B) Primary and secondary prevention of venous THROMBOSIS: 2 - 3 C) Active venous thrombosis, pulmonary embolism and prevention of recurrent venous thrombosis: 2 - 3 D) Prevention of arterial thromboembolism including patients with mechanical heart valves: 3 - 4.5 Performed By: #### C 4, THYGLOB AB, CHROMATIN, ALANNA, CH50, TPO, C3 #### [facility] , PT Coag (PPP) [Time] 12.2 s Normal 9.0-12.9 [facility] Comment on above: Performed By: #### C 4, THYGLOB AB, CHROMATIN, ALANNA, CH50, TPO, C3 #### [facility] , RBC Auto (Bld) [#/Vol]Ordere d By: Michelle Fernandez on 07-25-2022 RBC (Bld) [#/Vol] 4.21 10*6/uL 3.60-5.00 [facility] Serum or plasma albumin/glob ulin mass ratioOrdered By: Michelle Fernandez on 07-25-2022 Albumin/Globulin [Mass ratio] 1.3 {ratio} [facility] Serum or plasma anion gap de terminationOrdered By: Michelle Fernandez on 07-25-2022 Anion gap [Moles/Vol] 13.0 mmol/L 6.0-15.0 [facility] Sodium [Moles/volume] in Ser um or PlasmaOrdered By: Michelle Fernandez on 07-25-2022 Sodium [Moles/Vol] 138 mmol/L 136-145 [facility] Troponin I High Sensitivityo n 07-25-2022 Troponin I High Sensitivity 3.6 pg/mL Normal 0.0-15.0 [facility] Comment on above: Result Comment: PERF ORMED BY: [place] [id number] PATHOLOGIST SUPERVISOR [employer]DEL MAKING GUEVARA BRUNO M.D. Performed By: #### C 4, THYGLOB AB, CHROMATIN, ALANNA, CH50, TPO, C3 #### [facility] , Troponin I.cardiac [Mass/vol ume] in Serum or Plasma by Detection limit <= 0.01 ng/Ordered By: Michelle Fernandez on 07-25-2022 Troponin I.cardiac DL <= 0.01 ng/mL [Mass/Vol] 3.6 pg/mL 0.0-15.0 [facility] Urea nitrogen [Mass/volume] in Serum or PlasmaOrdered By: Michelle Fernandez on 07-25-2022 Urea nitrogen [Mass/Vol] 8 mg/dL 7-25 [facility] WBC Auto (Bld) [#/Vol]Ordere d By: Michelle Fernandez on 07-25-2022 WBC (Bld) [#/Vol] 6.1 10*3/uL 3.8-11.6 [facility] XR chest 2V*on 07-25-2022 XR chest 2V* [facility] Main [address] [address] XRay Report Signed Patient: Silvia Leung MR#: [id number] 2 : 1960 Acct:[id number] Age/Sex: 62 / F ADM Date: 07/25/22 Loc: ER Room: Type: [facility] ER Attending Dr: Copies to: Michelle Fernandez APRN Ordering Provider: Michelle Fernandez APRN Date of Service: 07/25/22 XR/XR chest 2V*: Extremity Problem, Nontraumatic PA AND LATERAL CHEST: CLINICAL HISTORY: Bilateral pedal edema and shortness of breath COMPARISON: 12/30/[address] 06/01/2021 There is mild hyperinflation. Chronic parenchymal changes are seen, similar to the comparison. There is no developing consolidation, effusion or pneumothorax. The cardiac, hilar and mediastinal silhouettes are stable. No vascular congestion is suspected. The visualized bony structures are osteopenic. Old right rib fractures are seen. XR/XR chest 2V* IMPRESSION: OBSTRUCTIVE LUNG DISEASE WITH CHRONIC CHANGES. NO ACUTE CARDIOPULMONARY ABNORMALITY. Impression dictated by: Tish South M.D.07/25/2022 2:43 PM Dictation Location: [place] [address] Transcribed By: [facility] 07/25/22 1443 Dictated By: Tish South MD 07/25/22 1440 Signed By: 07/25/22 1443 [facility] XR Soft Tissue Neckon 2022 XR Soft Tissue Neck History: Shortness o f breath, neck pain, elevated blood pressure, fatigue. FINDINGS: Airway patent. No radiopaque foreign bodies. No prevertebral soft tissue swelling. Cervical vertebral bodies to superior articular surface C6 normal in height and alignment. Edentulous. No fracture. No bone lesions. IMPRESSION: Negative soft tissue neck. Report reported and signed by Lang Fritz on 04/18/2022 1433 Normal [facility] Specialist Albumin [Mass/volume] in Ser um or PlasmaOrdered By: Raleigh Suggs on 04-17-2022 Albumin [Mass/Vol] 3.7 g/dL 3.2-5.5 [facility] Basophils Auto (Bld) [#/Vol] Ordered By: Raleigh Suggs on 04-17-2022 Basophils (Bld) [#/Vol] 0.0 10*3/uL 0.0-0.2 [facility] Basophils/100 WBC Auto (Bld) Ordered By: Raleigh Suggs on 04-17-2022 Basophils/100 WBC (Bld) 0.7 % . [facility] Cholesterol [Mass/volume] in Serum or PlasmaOrdered By: Raleigh Suggs on 04-17-2022 Cholesterol [Mass/Vol] 179 mg/dL 140-200 [facility] Comment on above: Chol less than 200 m g/dl low riskChol 201-239 mg/dl borderline riskChol 240 mg/dl and greater high risk Cholesterol in LDL Calc [Mas s/Vol]Ordered By: Raleigh Suggs on 04-17-2022 Cholesterol in LDL [Mass/Vol] 101 mg/dL 0-100 [facility] Comment on above: LDL ATP III CLASSIFI CATIONLDL less than 100 mg/dL OptimalLDL 100-129 mg/dL Near or above optimalLDL 130-159 mg/dL Borderline highLDL 160-189 mg/dL HighLDL greater than 189 mg/dL Very high Cholesterol in VLDL Calc [Ma ss/Vol]Ordered By: Raleigh Suggs on 04-17-2022 Cholesterol in VLDL [Mass/Vol] 17 mg/dL [facility] Creatinine and Glomerular fi ltration rate.predicted panel (S/P/Bld)Ordered By: Raleigh Suggs on 04-17-2022 Creatinine [Mass/Vol] 0.64 mg/dL 0.44-1.03 [facility] Eosinophils Auto (Bld) [#/Vo l]Ordered By: Raleigh Suggs on 04-17-2022 Eosinophils (Bld) [#/Vol] 0.1 10*3/uL 0.0-0.45 [facility] Eosinophils/100 WBC Auto (Bl d)Ordered By: Raleigh Suggs on 04-17-2022 Eosinophils/100 WBC (Bld) 1.8 % . [facility] Erythrocyte distribution wid th Auto (RBC) [Ratio]Ordered By: Raleigh Suggs on 04-17-2022 Erythrocyte distribution width (RBC) [Ratio] 13.6 % 11.9-15.3 [facility] Estimated glomerular filtrat ion rate (GFR) non- AmericanOrdered By: Raleigh Suggs on 04-17-2022 GFR/1.73 sq M.predicted among non-blacks MDRD (S/P/Bld) [Vol rate/Area] > 60 mL/Min [facility] Globulin Calc (S) [Mass/Vol] Ordered By: Raleigh Suggs on 04-17-2022 Globulin (S) [Mass/Vol] 3.4 g/dL [facility] Hematocrit Auto (Bld) [Volum e fraction]Ordered By: Raleigh Suggs on 04-17-2022 Hematocrit (Bld) [Volume fraction] 41.5 % 34.0-46.4 [facility] Hemoglobin [Mass/volume] in BloodOrdered By: Raleigh Suggs on 04-17-2022 Hemoglobin (Bld) [Mass/Vol] 13.6 g/dL 11.8-15.4 [facility] Laboratory - Chemistry and C hemistry - challengeOrdered By: Raleigh Suggs on 04-17-2022 Cobalamin (Vitamin B12) [Mass/Vol] 315 pg/mL 180-914 [facility] Leukocytes [#/volume] correc ranjit for nucleated erythrocytes in Blood by Automated counOrdered By: Raleigh Suggs on 04-17-2022 WBC corrected for nucl RBC Auto (Bld) [#/Vol] 6.9 10*3/uL 3.8-11.6 [facility] Lymphocytes Auto (Bld) [#/Vo l]Ordered By: Raleigh Suggs on 04-17-2022 Lymphocytes (Bld) [#/Vol] 2.1 10*3/uL 1.00-4.8 [facility] Lymphocytes/100 WBC Auto (Bl d)Ordered By: Raleigh Suggs on 04-17-2022 Lymphocytes/100 WBC (Bld) 31.0 % . [facility] MCH Auto (RBC) [Entitic mass ]Ordered By: Raleigh Suggs on 04-17-2022 MCH (RBC) [Entitic mass] 30.8 pg 24.7-34.3 [facility] MCHC Auto (RBC) [Mass/Vol]Or dered By: Raleigh Suggs on 04-17-2022 MCHC (RBC) [Mass/Vol] 32.7 g/dL 32.0-35.0 [facility] MCV Auto (RBC) [Entitic vol] Ordered By: Raleigh Suggs on 04-17-2022 MCV (RBC) [Entitic vol] 94.2 fL 80-100 [facility] Monocytes Auto (Bld) [#/Vol] Ordered By: Raleigh Suggs on 04-17-2022 Monocytes (Bld) [#/Vol] 0.5 10*3/uL 0.0-0.8 [facility] Monocytes/100 WBC Auto (Bld) Ordered By: Raleigh Suggs on 04-17-2022 Monocytes/100 WBC (Bld) 6.7 % . [facility] Neutrophils Auto (Bld) [#/Vo l]Ordered By: Raleigh Suggs on 04-17-2022 Neutrophils (Bld) [#/Vol] 4.1 10*3/uL 1.8-7.7 [facility] Neutrophils/100 WBC Auto (Bl d)Ordered By: Raleigh Suggs on 04-17-2022 Neutrophils/100 WBC (Bld) 59.8 % . [facility] No Panel InformationOrdered By: Raleigh Suggs on 04-17-2022 Estimated GFR () > 60 mL/Min [facility] Comment on above: GFR estimated refere nce range: According to KDOQI guidelines, <60 ml/min/1.73m2 is sufficient to diagnose a patient with chronic kidney disease. Pharmacy Creatinine Clearance (Chem N/A [facility] Nucleated erythrocytes [Pres ence] in Blood by Automated countOrdered By: Raleigh Suggs on 04-17-2022 Nucleated RBC Auto Ql (Bld) 0.1 /100{WBC} 0-0.5 [facility] Platelet mean volume Auto (B ld) [Entitic vol]Ordered By: Raleigh Suggs on 04-17-2022 Platelet mean volume (Bld) [Entitic vol] 9.9 fL 6.3-10.7 [facility] Platelets Auto (Bld) [#/Vol] Ordered By: Raleigh Suggs on 04-17-2022 Platelets (Bld) [#/Vol] 232 10*3/uL 150-450 [facility] Protein [Mass/volume] in Ser um or PlasmaOrdered By: Raleigh Suggs on 04-17-2022 Protein [Mass/Vol] 7.1 g/dL 6.1-7.9 [facility] RBC Auto (Bld) [#/Vol]Ordere d By: Raleigh Suggs on 04-17-2022 RBC (Bld) [#/Vol] 4.41 10*6/uL 3.60-5.00 [facility] Serum or plasma alanine umaña otransferase measurement without P-5'-P (enzymatic activiOrdered By: Raleigh Suggs on 04-17-2022 ALT No additional P-5'-P [Catalytic activity/Vol] 16 U/L 10-60 [facility] Serum or plasma albumin/glob ulin mass ratioOrdered By: Raleigh Suggs on 04-17-2022 Albumin/Globulin [Mass ratio] 1.1 {ratio} [facility] Serum or plasma alkaline hieu sphatase measurement (enzymatic activity/volume)Ordered By: Raleigh Suggs on 04-17-2022 ALP [Catalytic activity/Vol] 92 U/L 32-92 [facility] Serum or plasma anion gap de terminationOrdered By: Raleigh Suggs on 04-17-2022 Anion gap [Moles/Vol] 11.5 mmol/L 6.0-15.0 [facility] Serum or plasma aspartate am inotransferase measurement (enzymatic activity/volume)Ordered By: Raleigh Suggs on 04-17-2022 AST [Catalytic activity/Vol] 21 U/L 10-42 [facility] Serum or plasma calcium fausto urement (mass/volume)Ordered By: Raleigh Suggs on 04-17-2022 Calcium [Mass/Vol] 8.9 mg/dL 8.2-10.2 [facility] Serum or plasma chloride nimisha surement (moles/volume)Ordered By: Raleigh Suggs on 04-17-2022 Chloride [Moles/Vol] 103 mmol/L 95-114 [facility] Serum or plasma glucose fausto urement (mass/volume)Ordered By: Raleigh Suggs on 04-17-2022 Glucose [Mass/Vol] 88 mg/dL 70-100 [facility] Comment on above: ADA recommended refe rence rangeRandom Glucose Reference Range is dependent on time and content of last meal. Glucose of more than 200 mg/dL in a nonstressed, ambulatory subject supports the diagnosis of Diabetes Mellitus. Serum or plasma high density lipoprotein (HDL) cholesterol measurementOrdered By: Raleigh Suggs on 04-17-2022 Cholesterol in HDL [Mass/Vol] 61 mg/dL 35-85 [facility] Comment on above: HDL CHOL ATP-III CLA SSIFICATION Cardiovascular RiskHDL > or equal to 60 mg/dL LOWHDL < 40 mg/dL HIGH Serum or plasma potassium me asurement (moles/volume)Ordered By: Raleigh Suggs on 04-17-2022 Potassium [Moles/Vol] 4.2 mmol/L 3.5-5.1 [facility] Serum or plasma sodium measu rement (moles/volume)Ordered By: Raleigh Suggs on 04-17-2022 Sodium [Moles/Vol] 137 mmol/L 136-146 [facility] Serum or plasma total biliru bin measurement (mass/volume)Ordered By: Raleigh Suggs on 04-17-2022 Bilirubin [Mass/Vol] 0.6 mg/dL 0.3-1.2 [facility] Serum or plasma total carbon dioxide measurement (moles/volume)Ordered By: Raleigh Suggs on 04-17-2022 CO2 [Moles/Vol] 26.7 mmol/L 22.0-30.0 [facility] Serum or plasma total choles terol/high density lipoprotein (HDL) cholesterol mass ratOrdered By: Raleigh Suggs on 04-17-2022 Cholesterol.total/Daniela sterol in HDL [Mass ratio] 2.9 {ratio} <5.0 [facility] Serum or plasma urea nitroge n measurement (mass/volume)Ordered By: Raleigh uSggs on 04-17-2022 Urea nitrogen [Mass/Vol] 7 mg/dL 9-23 [facility] Triglyceride [Mass/volume] i n Serum or PlasmaOrdered By: Raleigh Suggs on 04-17-2022 Triglyceride [Mass/Vol] 86 mg/dL 35-149 [facility] Comment on above: TRIG ATP III CLASSIF ICATIONTRIG less than 150 mg/dL NormalTRIG 150-199 mg/dL Borderline highTRIG 200-500 mg/dL High TRIG greater than 500 mg/dL Very highStandard traceable to the Center for Disease Conrtrol and Prevention (CDC) test method. WBC Auto (Bld) [#/Vol]Ordere d By: Raleigh Suggs on 04-17-2022 WBC (Bld) [#/Vol] 6.9 10*3/uL 3.8-11.6 [facility] MG MAMM SCREEN 3D SAHARA CADon 03-27-2022 MG MAMM SCREEN 3D SAHARA CAD Patient: SILVIA LEUNG Exam Date: 03/27/2022 : 1960 Gender:F Ordering : DR RALEIGH SGUGS Admission #: [id number] Family : Order #: [id number] CLICK HERE TO VIEW EXAM RADIOLOGY REPORT PROCEDURE: MAMMOGRAM SCREENING 3D BILATERAL CAD COMPARISON: MG MAMM SAHARA SCRN W CAD DIG, 03/11/2015. INDICATIONS: Screening mammography Calculator Name NCI Breast Cancer Risk Assessment Tool 5 Year Breast Cancer Risk 1.60% Lifetime Breast Cancer Risk 6.80% Personal Breast Cancer No Personal Ovarian Cancer No Treatments Rt Lower Lobectomy 2010 Family Cancers Father with lung cancer at age 79; Grandmother-maternal with lung/brain cancer at age 58; Grandfather-maternal with lung/brain cancer at age 62. LOCATION: [facility] BREAST COMPOSITION: Scattered areas fibroglandular density. FINDINGS: DIAGNOSTIC CATEGORY 2--BENIGN FINDING: RIGHT BREAST: No significant suspicious finding. Stable, chronic large calcification within lower central breast. No significant change has occurred. LEFT BREAST: No significant suspicious finding. No significant change has occurred. RECOMMENDATIONS: ROUTINE MAMMOGRAM AND CLINICAL EVALUATION IN 12 MONTHS. PLEASE NOTE: A NORMAL MAMMOGRAM DOES NOT EXCLUDE THE POSSIBILITY OF BREAST CANCER. A CLINICALLY SUSPICIOUS PALPABLE LUMP SHOULD BE BIOPSIED. Dictated by: Srinivasan Nogueira M.D. on 03/28/2022 at 10:09 Approved by: Srinivasan Nogueira M.D. on 03/28/2022 at 10:[address] [facility] XR Spine Thoracic 2 Views*on 03-21-2022 XR Spine Thoracic 2 Views* CLINICAL HISTORY: Anterior/lateral right-sided rib pain. History of prior lung surgery. COMPARISON: None. RESULT: Alignment near-anatomic. No radiographic evidence for acute fracture. Mild to moderate multilevel degenerative changes with endplate osteophytes. Underlying decreased bone mineral density. Surgical clips projecting at the right hilar region and within the right upper quadrant. Visualized lungs are grossly clear. IMPRESSION: No acute osseous findings. Mild to moderate degenerative changes thoracic spine. Report reported and signed by Mio Hammond on 03/21/2022 1615 Normal [facility] Albumin [Mass/volume] in Ser um or PlasmaOrdered By: Raleigh Suggs on 12-20-2021 Albumin [Mass/Vol] 3.4 g/dL 3.2-5.5 [facility] Basophils Auto (Bld) [#/Vol] Ordered By: Raleigh Suggs on 12-20-2021 Basophils (Bld) [#/Vol] 0.0 10*3/uL 0.0-0.2 [facility] Basophils/100 WBC Auto (Bld) Ordered By: Raleigh Suggs on 12-20-2021 Basophils/100 WBC (Bld) 0.6 % . [facility] Blood hemoglobin measurement (mass/volume)Ordered By: Raleigh Suggs on 12-20-2021 Hemoglobin (Bld) [Mass/Vol] 13.0 g/dL 11.8-15.4 [facility] Blood leukocytes automated c ount (number/volume)Ordered By: Raleigh Suggs on 12-20-2021 WBC (Bld) [#/Vol] 6.2 10*3/uL 4.5-11.0 [facility] Creatinine and Glomerular fi ltration rate.predicted panel (S/P/Bld)Ordered By: Raleigh Suggs on 12-20-2021 Creatinine [Mass/Vol] 0.62 mg/dL 0.44-1.03 [facility] Eosinophils Auto (Bld) [#/Vo l]Ordered By: Raleigh Suggs on 12-20-2021 Eosinophils (Bld) [#/Vol] 0.1 10*3/uL 0.0-0.45 [facility] Eosinophils/100 WBC Auto (Bl d)Ordered By: Raleigh Suggs on 12-20-2021 Eosinophils/100 WBC (Bld) 2.0 % . [facility] Erythrocyte distribution wid th Auto (RBC) [Ratio]Ordered By: Raleigh Suggs on 12-20-2021 Erythrocyte distribution width (RBC) [Ratio] 13.7 % 11.9-15.3 [facility] Estimated glomerular filtrat ion rate (GFR) non- AmericanOrdered By: Raleigh Suggs on 12-20-2021 GFR/1.73 sq M.predicted among non-blacks MDRD (S/P/Bld) [Vol rate/Area] > 60 mL/Min [facility] Globulin Calc (S) [Mass/Vol] Ordered By: Raleigh Suggs on 12-20-2021 Globulin (S) [Mass/Vol] 3.2 g/dL [facility] Hematocrit Auto (Bld) [Volum e fraction]Ordered By: Raleigh Suggs on 12-20-2021 Hematocrit (Bld) [Volume fraction] 39.1 % 34.0-46.4 [facility] Laboratory - Chemistry and C hemistry - challengeOrdered By: Raleigh Suggs on 12-20-2021 Cobalamin (Vitamin B12) [Mass/Vol] 298 pg/mL 180-914 [facility] - Hematology and Cell countsOrdered By: Raleigh Suggs on 12-20-2021 Nucleated RBC/100 WBC (Bld) [Ratio] 0.1 % 0-0.5 [facility] Lymphocytes Auto (Bld) [#/Vo l]Ordered By: Raleigh Suggs on 12-20-2021 Lymphocytes (Bld) [#/Vol] 1.9 10*3/uL 1.00-4.8 [facility] Lymphocytes/100 WBC Auto (Bl d)Ordered By: Raleigh Suggs on 12-20-2021 Lymphocytes/100 WBC (Bld) 30.6 % . [facility] MCH Auto (RBC) [Entitic mass ]Ordered By: Raleigh Suggs on 12-20-2021 MCH (RBC) [Entitic mass] 31.5 pg 24.7-34.3 [facility] MCHC Auto (RBC) [Mass/Vol]Or dered By: Raleigh Suggs on 12-20-2021 MCHC (RBC) [Mass/Vol] 33.3 g/dL 32.0-35.0 [facility] MCV Auto (RBC) [Entitic vol] Ordered By: Raleigh Suggs on 12-20-2021 MCV (RBC) [Entitic vol] 94.6 fL 80-100 [facility] Monocytes Auto (Bld) [#/Vol] Ordered By: Raleigh Suggs on 12-20-2021 Monocytes (Bld) [#/Vol] 0.5 10*3/uL 0.0-0.8 [facility] Monocytes/100 WBC Auto (Bld) Ordered By: Raleigh Suggs on 12-20-2021 Monocytes/100 WBC (Bld) 7.7 % . [facility] Neutrophils Auto (Bld) [#/Vo l]Ordered By: Raleigh Suggs on 12-20-2021 Neutrophils (Bld) [#/Vol] 3.7 10*3/uL 1.8-7.7 [facility] Neutrophils/100 WBC Auto (Bl d)Ordered By: Raleigh Suggs on 12-20-2021 Neutrophils/100 WBC (Bld) 59.1 % . [facility] No Panel InformationOrdered By: Raleigh Suggs on 12-20-2021 Estimated GFR () > 60 mL/Min [facility] Comment on above: GFR estimated refere nce range: According to KDOQI guidelines, <60 ml/min/1.73m2 is sufficient to diagnose a patient with chronic kidney disease. Pharmacy Creatinine Clearance (Chem N/A [facility] Platelet mean volume Auto (B ld) [Entitic vol]Ordered By: Raleigh Suggs on 12-20-2021 Platelet mean volume (Bld) [Entitic vol] 8.9 fL 6.3-10.7 [facility] Platelets Auto (Bld) [#/Vol] Ordered By: Raleigh Suggs on 12-20-2021 Platelets (Bld) [#/Vol] 223 10*3/uL 150-450 [facility] Protein [Mass/volume] in Ser um or PlasmaOrdered By: Raleigh Suggs on 12-20-2021 Protein [Mass/Vol] 6.6 g/dL 6.1-7.9 [facility] RBC Auto (Bld) [#/Vol]Ordere d By: Raleigh Suggs on 12-20-2021 RBC (Bld) [#/Vol] 4.13 10*6/uL 3.60-5.00 [facility] Serum or plasma alanine umaña otransferase measurement without P-5'-P (enzymatic activiOrdered By: Raleigh Suggs on 12-20-2021 ALT No additional P-5'-P [Catalytic activity/Vol] 15 U/L 10-60 [facility] Serum or plasma albumin/glob ulin mass ratioOrdered By: Raleigh Suggs on 12-20-2021 Albumin/Globulin [Mass ratio] 1.1 {ratio} [facility] Serum or plasma alkaline hieu sphatase measurement (enzymatic activity/volume)Ordered By: Raleigh Suggs on 12-20-2021 ALP [Catalytic activity/Vol] 89 U/L 32-92 [facility] Serum or plasma anion gap de terminationOrdered By: Raleigh Suggs on 12-20-2021 Anion gap [Moles/Vol] 14.0 mmol/L 6.0-15.0 [facility] Serum or plasma aspartate am inotransferase measurement (enzymatic activity/volume)Ordered By: Raleigh Suggs on 12-20-2021 AST [Catalytic activity/Vol] 19 U/L 10-42 [facility] Serum or plasma calcium fausto urement (mass/volume)Ordered By: Raleigh Suggs on 12-20-2021 Calcium [Mass/Vol] 9.1 mg/dL 8.2-10.2 [facility] Serum or plasma chloride nimisha surement (moles/volume)Ordered By: Raleigh Suggs on 12-20-2021 Chloride [Moles/Vol] 102 mmol/L 95-114 [facility] Serum or plasma glucose fausto urement (mass/volume)Ordered By: Raleigh Suggs on 12-20-2021 Glucose [Mass/Vol] 97 mg/dL 70-100 [facility] Comment on above: ADA recommended refe rence range Random Glucose Reference Range is dependent on time and content of last meal. Glucose of more than 200 mg/dL in a nonstressed, ambulatory subject supports the diagnosis of Diabetes Mellitus. Serum or plasma potassium me asurement (moles/volume)Ordered By: Raleigh Suggs on 12-20-2021 Potassium [Moles/Vol] 4.1 mmol/L 3.5-5.1 [facility] Serum or plasma sodium measu rement (moles/volume)Ordered By: Raleigh Suggs on 12-20-2021 Sodium [Moles/Vol] 139 mmol/L 136-146 [facility] Serum or plasma total biliru bin measurement (mass/volume)Ordered By: Raleigh Suggs on 12-20-2021 Bilirubin [Mass/Vol] 0.5 mg/dL 0.3-1.2 [facility] Serum or plasma total carbon dioxide measurement (moles/volume)Ordered By: Raleigh Suggs on 12-20-2021 CO2 [Moles/Vol] 27.1 mmol/L 22.0-30.0 [facility] Serum or plasma urea nitroge n measurement (mass/volume)Ordered By: Raleigh Suggs on 12-20-2021 Urea nitrogen [Mass/Vol] 8 mg/dL 12-[address] [facility] [address] CHEST WO CONon 11-22-2021 CT CHEST WO CON EXAMINATION: CT CHES T WO CON HISTORY: Imaging result abnormal ; pulmonary nodules, history of right lung cancer and lower lobe resection. COMPARISON: CT chest 06/01/2021 TECHNIQUE: Axial, Coronal, and Sagittal images were created without the administration of IV contrast material. Dose reduction techniques were achieved by using automated exposure control and/or adjustment of mA and/or kV according to patient size and/or use of iterative reconstruction technique. FINDINGS: LUNGS: Scattered 2-3 mm spiculated opacities within the lungs at sites of prior nodules. Moderate emphysematous changes. Surgical changes within right hilum from right lower lobe resection. PLEURA: No mass, effusion, or pneumothorax. VASCULATURE: No abnormality. MITCH: No mass or adenopathy. MEDIASTINUM: No mass or adenopathy. CARDIAC: No enlargement or pericardial thickening. AORTA: No aneurysm or dissection. CHEST WALL: No mass or axillary adenopathy. BONES: Osseous healing of posterior right ribs from prior surgery. LIMITED ABDOMEN: No suspicious findings. Limited images of the upper abdomen. OTHER: Negative. IMPRESSION: 1. Interval significant decrease in size of the numerous pulmonary nodules seen on prior study. These are now seen as multiple scattered 2-3 mm spiculated opacities/scarring. Additional follow-up in 6 months is recommended to document stability. 2. No new nodules or lymphadenopathy. Electronically authenticated by: SRINIVASAN NOGUEIRA Date: 2021-11-22 17:56 Normal [facility] Urinalysis - DIPSTICKon 05- Appearance (U) clear [employer] Other Bilirubin Ql (U) Negative LevelEleven Other Color (U) yellow [employer] Other Glucose Ql (U) Negative [employer] Other Hemoglobin Ql (U) Negative SpotFodo ELVPHD Other Ketones Ql (U) Negative [employer] Other Leukocyte esterase Test strip Ql (U) trace [employer] Other Nitrite Ql (U) Negative [employer] Other pH (U) 5.0 [pH] [employer] Other Protein Ql (U) trace [employer] Other Specific gravity (U) [Rel density] 1.025 [employer] Other Urobilinogen (U) [Mass/Vol] wnl [employer] Other Urinalysis - DIPSTICK Nor [employer] Other BNPon 06-01-2021 Natriuretic peptide B (Bld) [Mass/Vol] 25.0 pg/mL Normal <=900.0 [facility] Comment on above: Performed By: #### H STROPN, BNP ####[facility] [address] [place], [place] [address]Dr. Saige Wright CBC AUTO DIFFon 06-01-2021 BASO # 0.0 103/ul Normal 0.0-0.1 [facility] Comment on above: Performed By: #### C BC ####[facility] [address] [place], [place] [address]Dr. Saige Wright Basophils/100 WBC (Bld) 0.5 % Normal 0.2-2.0 [facility] Comment on above: Performed By: #### C BC ####[facility] [address] [place], [place] [address]Dr. Saige Wright EO # 0.1 103/ul Normal 0.0-0.7 [facility] Comment on above: Performed By: #### C BC ####[facility] [address] [place], [place] [address]Dr. Saige Wright Eosinophils/100 WBC (Bld) 1.9 % Normal 0.9-7.[address] [facility] Comment on above: Performed By: #### C BC ####[facility] [address] [place] [address]Dr. Saige Wright Erythrocyte distribution width (RBC) [Ratio] 12.7 % Normal 11.0-15.[address] [facility] Comment on above: Performed By: #### C BC ####[facility] [address] [place] [address]Dr. Saige Wright Hematocrit (Bld) [Volume fraction] 40.5 % Normal 36.0-48.[address] [facility] Comment on above: Performed By: #### C BC ####[facility] [address] [place] [address]Dr. Saige Wright Hemoglobin (Bld) [Mass/Vol] 13.5 g/dL Normal 12.0-16.[address] [facility] Comment on above: Performed By: #### C BC ####[facility] [address] [place], [place] [address]Dr. Saige Wright IG # 0.03 10e3/ul Normal 0.00-0.[address] [facility] Comment on above: Performed By: #### C BC ####[facility] [address] [place], [place] [address]Dr. Saige Wright IG % 0.4 % Normal 0.0-0.[address] [facility] Comment on above: Performed By: #### C BC ####[facility] [address] [place], [place] [address]Dr. Saige Wright LYMPH # 2.5 103/ul Normal 1.2-3.[address] [facility] Comment on above: Performed By: #### C BC ####[facility] [address] [place], [place] [address]Dr. Saige Wright Lymphocytes/100 WBC (Bld) 34.5 % Normal 20.5-60.[address] [facility] Comment on above: Performed By: #### C BC ####[facility] [address] [place] [address]Dr. Saige Kyle MANUAL DIFF REQ NO Normal [facility] Comment on above: Performed By: #### C BC ####[facility] [address] [place] [address]Dr. Saige Wright MCH (RBC) [Entitic mass] 31.3 pg Normal 26.7-34.0 [facility] Comment on above: Performed By: #### C BC ####[facility] [address] [place], [place] [address]Dr. Saige Kyle MCHC (RBC) [Mass/Vol] 33.3 g/dL Normal 29.9-35.2 [facility] Comment on above: Performed By: #### C BC ####[facility] [address] [place], [place] [address]Dr. Darlinepiedad Wright MCV (RBC) [Entitic vol] 94.0 fL Normal 81.0-99.0 [facility] Comment on above: Performed By: #### C BC ####[facility] [address] [place], [place] [address]Dr. Darlinepiedad Wright MONO # 0.5 103/ul Normal 0.3-0.8 [facility] Comment on above: Performed By: #### C BC ####[facility] [address] [place], [place] [address]Dr. Darlinepiedad Wright Monocytes/100 WBC (Bld) 7.2 % Normal 1.7-12.0 [facility] Comment on above: Performed By: #### C BC ####[facility] [address] [place] [address]Dr. Saige Wright NEUT # 4.1 103/ul Normal 1.4-6.5 [facility] Comment on above: Performed By: #### C BC ####[facility] [address] [place], [place] [address]Dr. Saige Wright Neutrophils/100 WBC (Bld) 55.5 % Normal 43.0-75.0 [facility] Comment on above: Performed By: #### C BC ####[facility] [address] [place] [address]Dr. Saige Wright Platelet mean volume (Bld) [Entitic vol] 10.3 fL Normal 9.5-13.[address] [facility] Comment on above: Performed By: #### C BC ####[facility] [address] [place] [address]Dr. Saige Wright PLT 233 103/ul Normal 150-[address] [facility] Comment on above: Performed By: #### C BC ####[facility] [address] [place] [address]Dr. Saige Wright RBC 4.31 106/ul Normal 4.20-5.[address] [facility] Comment on above: Performed By: #### C BC ####[facility] [address] [place] [address]Dr. Saige Wright WBC 7.3 103/ul Normal 4.0-11.[address] [facility] Comment on above: Performed By: #### C BC ####[facility] [address] [place] [address]Dr. Saige Wright CPKon 06-01-2021 CK [Catalytic activity/Vol] 59 U/L Normal 30-[address] [facility] Comment on above: Performed By: #### B MP, CK, CRP ####[facility] [address] [place] [id number]. Saige Wright CRPon 06-01-2021 CRP 1.7 mg/dL Critically high <=1.0 [facility] Comment on above: Performed By: #### B MP, CK, CRP ####[facility] [address] [place], [place] [address]Dr. Saige Wright CTA CHEST WO W CONon 022 CTA CHEST WO W CON CTA CHEST WO W CON, DATE: 06/01/2021 5:45 PM EST HISTORY: SHORTNESS OF BREATH COMPARISON: None. TECHNIQUE: Multiple axial images are taken from the level of the thyroid down through the upper abdomen with and without the use of IV contrast. Images are then reconstructed in the sagittal and coronal planes. This exam was performed according to our departmental dose-optimization program which includes use of Automated Exposure Control, adjustment of the mA and/or kV according to patient size and/or use of iterative reconstruction technique. Postprocessing was performed for CTA with the following as per hospital protocol: Maximum intensity projection (MIPs) Contrast Used: 100 ml of Omnipaque 350 FINDINGS: Lungs: The lungs are hyperexpanded. Multiple nodules are demonstrated throughout bilateral lungs. Multiple pulmonary nodules which measure approximately 5 to 8 mm with the largest seen in the right lung on axial image 30 measuring 16 mm. Edematous changes are demonstrated. Bibasilar atelectasis is demonstrated. Pleura: No pneumothorax. No effusion. There is some mild prominence of fat along the posterior pleura. Thyroid: Heterogeneous thyroid. Mediastinum: Aorta: Normal. Pulmonary artery: Normal. No pulmonary embolus, allowing for bolus timing. Heart: Normal. Trachea/Bronchi: Well aerated. No intraluminal masses. Esophagus: Decompressed which limits evaluation. Normal for the lack of distention. Lymph Nodes: Normal. Chest wall: Normal. Axilla: Normal. Osseous Structures: Normal for patient's age. Subdiaphragm: Diaphragmatic abdominal organs included in the [id number] demonstrate fatty infiltrated liver with gallbladder this been removed. IMPRESSION: 1. Multiple pulmonary nodules which measure approximately 5 to 8 mm with the largest seen in the right lung on axial image 30 measuring 16 mm. Please correlate with patient's medical history. PET CT scan and/or biopsy may help better delineate. 2. No CT evidence for acute pulmonary embolus. 3. Hepatic steatosis. 4. Status post cholecystectomy. Electronically authenticated by: SHERICE DAVIS Date: 2021-06-01 18:[address] [facility] D-DIMERon 06-01-2021 D-DIMER 0.69 mg/L FEU Critically high 0.19-0.50 [facility] Comment on above: Performed By: #### D DIM ####[facility] [address] [place], [place] [address]NqCody Wright D-DIMER COMMENTS SEE BELOW Normal [facility] Comment on above: Result Comment: Incr eases in D-Dimer concentration observed with thromboembolic events can be variable due to localization, size, and age of the thrombus. Therefore, a thromboembolic event cannot be diagnosed with certainty on the basis of the reference range. D-Dimers may also be elevated for a variety of disorders including: advanced age, , coronary disease, cancer, liver disease, infection, inflammation, hematoma, DIC, trauma, post-surgery, diabetes, thrombolytic or anticoagulant therapy, stress, and generalized hospitalization. Performed By: #### D DIM ####[facility] [address] [place] [address]Dr. Saige Wright PROF CHEM 8 (BAS METB)on Anion gap [Moles/Vol] 9.5 mmol/L Normal [facility] Comment on above: Performed By: #### B MP, CK, CRP ####[facility] [address] [place] [address]Dr. Saige Wright Calcium [Mass/Vol] 8.8 mg/dL Normal 8.4-10.2 [facility] Comment on above: Performed By: #### B MP, CK, CRP ####[facility] [address] [place], [place] [address]Dr. Saige Wright Chloride [Moles/Vol] 101 mmol/L Normal 98-107 [facility] Comment on above: Performed By: #### B MP, CK, CRP ####[facility] [address] [address]Dr. Saige Wright CO2 [Moles/Vol] 29.5 mmol/L Normal 22.0-30.0 [facility] Comment on above: Performed By: #### B MP, CK, CRP ####[facility] [address] [place], [place] [address]Dr. Saige Wright Creatinine [Mass/Vol] 0.62 mg/dL Normal 0.52-1.04 [facility] Comment on above: Performed By: #### B MP, CK, CRP ####[facility] [address] [place], [place] [address]Dr. Saige Wright EGFR-AF SWAZI >60 Normal >=60 [facility] Comment on above: Performed By: #### B MP, CK, CRP ####[facility] [address] [place], [place] [address]Dr. Saige Wright EGFR-NON AF SWAZI >60 Normal >=60 [facility] Comment on above: Performed By: #### B MP, CK, CRP ####[facility] [address] [address]Dr. Saige Wright Glucose [Mass/Vol] 92 mg/dL Normal 74-106 [facility] Comment on above: Performed By: #### B MP, CK, CRP ####[facility] [address] [address]Dr. Saige Wright Potassium [Moles/Vol] 4.0 mmol/L Normal 3.4-5.0 [facility] Comment on above: Performed By: #### B MP, CK, CRP ####[facility] [address] [address]Dr. Saige Wright Sodium [Moles/Vol] 136 mmol/L Critically low 137-145 [facility] Comment on above: Performed By: #### B MP, CK, CRP ####[facility] [address] [address]DrCody Wright Urea nitrogen [Mass/Vol] 12.0 mg/dL Normal 7.0-17.0 [facility] Comment on above: Performed By: #### B MP, CK, CRP ####[facility] [address] [address]Dr. Saige Wright Urea nitrogen/Creatinine [Mass ratio] 19.4 mg/mg Normal [facility] Comment on above: Performed By: #### B MP, CK, CRP ####[facility] [address] [address]DrCody Wright PROTIMEon 06-01-2021 INR Coag (PPP) [Relative time] 0.99 {INR} Normal [facility] Comment on above: Performed By: #### P T, PTT #### [facility] [address] [address] [address] Saige Wright INR GUIDELINES SEE BELOW Normal [facility] Comment on above: Result Comment: HELEN RED INR: 2.0 - 3.0 CONDITIONS NOT LISTED BELOW 2.5 - 3.5 FOR PROSTHETIC HEART VALVE REPLACEMENT 2.5 - 3.5 RECURRENT THROMBOSIS Performed By: #### P T, PTT #### [facility] [address] [address] [address] Saige Wright PT Coag (PPP) [Time] 10.7 s Normal 9.0-11.6 [facility] Comment on above: Performed By: #### P T, PTT #### [facility] [address] [address] [address] Saige Wright PTTon 06-01-2021 aPTT Coag (Bld) [Time] 35.3 s Normal 22.3-36.2 [facility] Comment on above: Performed By: #### P T, PTT #### [facility] [address] [address] [address] Saige Wright SED RATE WESTERGRENon 2021 SED RATE 67 mm/hr Critically high <=30 [facility] Comment on above: Performed By: #### S EDR #### [facility] [address] [address] [address] Saige Wright TROPONIN, HIGH SENSITIVITYon 06-01-2021 HSTROP 8.0 pg/mL Normal 4.0-35.5 [facility] Comment on above: Result Comment: CUT- OFF POINTS HAVE BEEN ESTABLISHED BASED ON THE FOURTH UNIVERSAL DEFINITIONS OF MYOCARDIAL INFARCTION. THE UPPER REFERENCE LIMIT (URL) OF TROPONIN, DEFINED THE 99TH PERCENTILE OF cTnI DISTRIBUTION IN A REFERENCE POPULATION, HAS BEEN CONFIRMED THE DECISION THRESHOLD FOR CA DIAGNOSIS. Performed By: #### H STROPN, BNP ####[facility] [address] [address]Dr. Saige Wright XR CSPINE 2_3 VIEWSon 2021 XR CSPINE 2_3 VIEWS EXAMINATION: XR TSPI NE 2 VIEWS, XR CSPINE 2_3 VIEWS HISTORY: Dyspnea COMPARISON: 07/08/2020 FINDINGS: BONES: Normal alignment of the cervical and thoracic vertebral bodies with no acute fracture or spondylolisthesis. Mild diffuse degenerative spondylosis and facet osteoarthropathy. DISC SPACES: Normal. No significant disc height narrowing, subluxation, or endplate abnormality. PARASPINOUS: Negative. No paraspinous abnormality is seen. OTHER: Negative. IMPRESSION: Mild diffuse degenerative changes Electronically authenticated by: RUSH TADEO Date: 2021-06-01 16:11 Normal [facility] XR STERNUM MIN 2 VIEWSon XR STERNUM MIN 2 VIEWS EXAMINATION: XR C HEST 2 V, XR STERNUM MIN 2 VIEWS, XR RIBS SAHARA NO CHEST 3VIEWS HISTORY: Dyspnea COMPARISON: 04/14/2020 TECHNIQUE: PA and lateral FINDINGS: LUNGS: Increased interstitial lung markings and scattered pulmonary nodules, stable from the prior exam likely representing chronic changes. No new focal parenchymal infiltrates. VASCULATURE: No increased pulmonary vasculature. PLEURA: No pneumothorax, effusion, or pleural thickening. CARDIAC: No cardiomegaly or cardiac silhouette abnormality. MEDIASTINUM: No visible mass or adenopathy. BONES: No fracture or visible bone lesion. RIBS: Remote healed fracture right posterior fifth and sixth ribs IMPRESSION: Chronic changes of the lungs with no new focal infiltrate No sternal fracture No acute rib fracture Electronically authenticated by: RUSH TADEO Date: 2021-06-01 16:[address] [facility] Vital Signs Date Time Vital Sign Value Performing Clinician Shareei lashaun 03-05-2023 14:00-0500 Body height 165.1 cm MD Raleigh Suggs Work Phone: [facility] 03-05-2023 14:00-0500 Body weight 110.22 kg MD Raleigh Suggs Work Phone: [facility] 03-05-2023 14:00-0500 Diastolic blood pressure 80 mm[Hg] MD Raleigh Suggs Work Phone: [facility] 03-05-2023 14:00-0500 Systolic blood pressure 140 mm[Hg] MD Raleigh Suggs Work Phone: [facility] 01-22-2023 08:28-0400 Blood Pressure Location ALLIE MENDENHALL [facility] 01-22-2023 08:28-0400 Diastolic blood pressure 79 mm[Hg] ALLIE MENDENHALL [facility] 01-22-2023 08:28-0400 Heart rate 68 /min ALLIE MENDENHALL [facility] 01-22-2023 08:28-0400 Respiratory rate 16 /min ALLIE MENDENHALL [facility] 01-22-2023 08:28-0400 Systolic blood pressure 136 mm[Hg] ALLIE MENDENHALL [facility] 01-18-2023 17:00-0400 Body height 165.1 cm Colleen Aneesh Other [facility] Other 01-18-2023 17:00-0400 Body mass index (BMI) [Ratio] 39.93 kg/m2 Colleen Melendrez Other [facility] Other 01-18-2023 17:00-0400 Body temperature 97.6 [degF] Colleen Melendrez Other [facility] Other 01-18-2023 17:00-0400 Body weight 108.86 kg Colleen Melendrez Other [facility] Other 01-18-2023 17:00-0400 Diastolic blood pressure 86 mm[Hg] Colleen Melendrez Other [facility] Other 01-18-2023 17:00-0400 SaO2% (BldA) [Mass fraction] 95 % Colleen Melendrez Other [facility] Other 01-18-2023 17:00-0400 Systolic blood pressure 132 mm[Hg] Colleen Melendrez Other [facility] Other 11-28-2022 11:30-0400 Body height 165.1 cm Mau Mendezno Other [facility] Other 11-28-2022 11:30-0400 Body mass index (BMI) [Ratio] 41.1 kg/m2 Mau Sarahdano Other [facility] Other 11-28-2022 11:30-0400 Body temperature 96.1 [degF] Mau Mendezno Other [facility] Other 11-28-2022 11:30-0400 Body weight 112.04 kg Mau Sarahdano Other [facility] Other 11-28-2022 11:30-0400 Diastolic blood pressure 80 mm[Hg] Jeeter Diana Other [facility] Other 11-28-2022 11:30-0400 Respiratory rate 20 /min Jeeter Diana Other [facility] Other 11-28-2022 11:30-0400 SaO2% (BldA) [Mass fraction] 94 % Jeeter Diana Other [facility] Other 11-28-2022 11:30-0400 Systolic blood pressure 138 mm[Hg] Mohamuddeaner Diana Other [facility] Other 07-25-2022 15:37-0400 Diastolic blood pressure 88 mm[Hg] [facility] 07-25-2022 15:37-0400 Heart rate 79 /min [facility] 07-25-2022 15:37-0400 Respiratory rate 18 /min [facility] 07-25-2022 15:37-0400 SaO2% (BldA) [Mass fraction] 96 % [facility] 07-25-2022 15:37-0400 Systolic blood pressure 188 mm[Hg] [facility] 07-25-2022 12:18-0400 Body height 162.56 cm [facility] 07-25-2022 12:18-0400 Body temperature 98 [degF] [facility] 07-25-2022 12:18-0400 Body weight 112.9 kg [facility] 11-29-2021 12:15-0400 Body height 165.1 cm Mau Ortiz Other [facility] Other 11-29-2021 12:15-0400 Body mass index (BMI) [Ratio] 40.1 kg/m2 Mau Ortiz Other [facility] Other 11-29-2021 12:15-0400 Body temperature 96.4 [degF] Mau Ortiz Other [facility] Other 11-29-2021 12:15-0400 Body weight 109.32 kg Mau Ortiz Other [facility] Other 11-29-2021 12:15-0400 Diastolic blood pressure 78 mm[Hg] Mau Mendezno Other [facility] Other 11-29-2021 12:15-0400 Respiratory rate 20 /min Mau Sarahdano Other [facility] Other 11-29-2021 12:15-0400 SaO2% (BldA) [Mass fraction] 96 % Mau Ortiz Other [facility] Other 11-29-2021 12:15-0400 Systolic blood pressure 152 mm[Hg] Mau Ortiz Other [facility] Other 09-06-2021 11:30-0400 Body height 165.1 cm Mau Diana Other [facility] Other 09-06-2021 11:30-0400 Body mass index (BMI) [Ratio] 39.6 kg/m2 Jeeter Diana Other [facility] Other 09-06-2021 11:30-0400 Body temperature 96.6 [degF] Jeeter Diana Other [facility] Other 09-06-2021 11:30-0400 Body weight 107.96 kg Jeeter Diana Other [facility] Other 09-06-2021 11:30-0400 Diastolic blood pressure 80 mm[Hg] Jeeter Diana Other [facility] Other 09-06-2021 11:30-0400 Respiratory rate 20 /min Jeeter Diana Other [facility] Other 09-06-2021 11:30-0400 SaO2% (BldA) [Mass fraction] 96 % Jeeter Diana Other [facility] Other 09-06-2021 11:30-0400 Systolic blood pressure 142 mm[Hg] Jeeter Diana Other [facility] Other 08-28-2021 16:45-0400 Body height 165.1 cm Usman Cabrales Other [facility] Other 08-28-2021 16:45-0400 Body mass index (BMI) [Ratio] 36.61 kg/m2 Usman Cabrales Other [facility] Other 08-28-2021 16:45-0400 Body temperature 98 [degF] Usman Cabrales Other [facility] Other 08-28-2021 16:45-0400 Body weight 99.79 kg Usman Cabrales Other [facility] Other 08-28-2021 16:45-0400 Respiratory rate 18 /min Usman Cabrales Other [facility] Other 08-28-2021 16:45-0400 SaO2% (BldA) [Mass fraction] 96 % Usman Cabrales Other [facility] Other Encounters Encounter Date Encounter Type Care Provider Facility Start: 05-23-2023 External Result Encounter Raleigh Suggs MD Work Phone: [facility] Unsolicited Start: 05-23-2023 External Result Encounter Raleigh Suggs MD Work Phone: [facility] Unsolicited Start: 05-23-2023 End: 05-23-2023 ambulatory Raleigh Suggs Facility:[facility] Start: 05-23-2023 End: 05-23-2023 ambulatory MD Raleigh Suggs Work Phone: [facility] Work Phone: Start: 05-23-2023 End: 05-23-2023 Patient encounter procedure MD Raleigh Suggs Work Phone: 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 Start: 05-09-2023 End: 05-10-2023 ambulatory RALEIGH SUGGS Not Available Start: 04-03-2023 End: 04-04-2023 ambulatory RALEIGH SUGGS Not Available Start: 04-03-2023 End: 04-03-2023 ambulatory RALEIGH SUGGS Not Available Start: 03-12-2023 End: 03-13-2023 ambulatory TOMI HILLMAN Not Available Start: 03-05-2023 End: 03-05-2023 Patient encounter procedure MD Raleigh Suggs Work Phone: [facility] Work Phone: Start: 01-22-2023 End: 01-23-2023 ambulatory ALLIE MENDENHALL Facility:[facility] Start: 01-22-2023 End: 01-22-2023 Patient encounter procedure ALLIE MENDENHALL [facility] Start: 01-20-2023 End: 01-20-2023 ambulatory Colleen Melendrez Other [facility] Other Start: 01-20-2023 Telephone encounter Colleen Melendrez [facility] Start: 01-18-2023 End: 01-18-2023 ambulatory Colleen Melendrez Facility:[facility] Start: 01-18-2023 End: 01-18-2023 Departed Referred [facility] [place] Work Phone: Start: 01-18-2023 End: 01-18-2023 ambulatory NON STAFF [facility] Work Phone: Start: 01-18-2023 Office outpatient vi sit 15 minutes Colleen Melendrez [facility] Start: 01-15-2023 End: 01-15-2023 ambulatory Debo Gates Facility:[facility] Start: 01-15-2023 End: 01-15-2023 Patient encounter procedure [facility] [address] Work Phone: Start: 11-28-2022 End: 11-28-2022 ambulatory Mau Ortiz Other [facility] Other Start: 11-28-2022 Office outpatient vi sit 25 minutes Mau Ortiz [facility] Start: 11-16-2022 End: 11-16-2022 ambulatory Raleigh Suggs Facility:[facility] Start: 11-16-2022 End: 11-16-2022 Patient encounter procedure [facility] [place] Work Phone: Start: 11-06-2022 End: 11-06-2022 ambulatory Raleigh Dayton Facility:[facility] Start: 11-06-2022 End: 11-06-2022 ambulatory NON STAFF [facility] Work Phone: Start: 11-06-2022 End: 11-06-2022 Patient encounter procedure [facility] [place] Work Phone: Start: 08-01-2022 End: 08-01-2022 ambulatory Brian Marquez Facility:[facility] Start: 08-01-2022 End: 08-01-2022 ambulatory NON STAFF [facility] Work Phone: Start: 08-01-2022 End: 08-01-2022 Patient encounter procedure [facility] [place] Work Phone: Start: 07-30-2022 End: 07-30-2022 ambulatory Brian Marquez Facility:[facility] Start: 07-30-2022 End: 07-30-2022 ambulatory NON STAFF [facility] Work Phone: Start: 07-30-2022 End: 07-30-2022 Patient encounter procedure [facility] [address] Work Phone: Start: 07-25-2022 End: 07-25-2022 Emergency department patient visit Michelle Fernandez Facility:[facility] Start: 07-25-2022 End: 07-25-2022 Emergency department patient visit [facility] Work Phone: Start: 04-17-2022 End: 04-17-2022 ambulatory MD Demarcus Vasquezagher [facility] Work Phone: Start: 04-17-2022 End: 04-17-2022 Patient encounter procedure MD Demarcus Vasquezagher [facility] [place] Work Phone: Start: 03-27-2022 End: 03-28-[address] RALEIGH SUGGS Facility:[facility] Start: 12-20-2021 End: 12-20-2021 Patient encounter procedure MD Demarcus Vasquezagher [facility] [place] Start: 11-29-2021 End: 11-29-2021 ambulatory Mau Ortiz Other [facility] Other Start: 11-29-2021 Office outpatient vi sit 15 minutes Christopher Diana [facility] Start: 11-22-2021 End: 11-23-[address] ROSA ORTIZ Facility:[facility] Start: 09-27-[address] RALEIGH SUGGS Facility :[facility] Start: 09-25-2021 End: 09-25-2021 ambulatory Usman Cabrales Other [facility] Other Start: 09-25-2021 Telephone encounter Usman Noland [facility] Start: 09-06-2021 End: 09-06-2021 ambulatory Mau Ortiz Other [facility] Other Start: 09-06-2021 Office outpatient ne w 45 minutes Christopher Diana [facility] Start: 08-28-2021 End: 08-28-2021 ambulatory Usman Cabrales Other [facility] Other Start: 08-28-2021 Office outpatient vi sit 15 minutes Usman Cabrales [facility] Start: 06-01-2021 End: 06-01-[address] MUNROE LISTED REQUEST Facility:[facility] Start: 06-01-2021 End: 06-02-[address] DEMARCUS DEL VALLE Facility:[facility] Procedures Date Procedure Procedure Detail Performing Clinician Start: 05-23-2023 Complete blood count with white cell differential, automated Raleigh Suggs MD Work Phone: Start: 05-23-2023 End: 05-23-2023 Comprehensive metabolic panel Raleigh anderson MD Work Phone: Start: 01-15-2023 Urine culture Start: 07-25-2022 Plain chest X-ray Start: 03-27-2022 [facility] Start: 12-13-2015 Colonoscopy [facility] Start: 11-11-2015 Cystourethroscopy wi dilation of urethral stricture ALLIE MENDENHALL back surgery ALLIE MENDENHALL bowel resection 1 ALLIE Eduarda WATERSLata Comment on above: Cholecystectomy ALLIE BALL Hysterectomy ALLIE MENDENHALL Lobectomy ALLIE MENDENHALL Plan of Treatment Date Care Activity Detail Author Start: 12-12-2025 Screening for malign ant neoplasm of colon [facility] Start: 04-03-2024 Medicare Annual Well ness (AWV) Medicare Annual Wellness (AWV) [facility] Start: 07-03-2023 End: 07-03-2023 Patient encounter procedure 07/03/2023 1:30 PM EDT Office Visit [facility] [address] [place] [address] Raleigh Suggs MD [address] [facility] [address] [place] [address] [facility] Start: 03-27-2023 Screening for malign ant neoplasm of breast Mammogram [facility] Start: 01-18-2023 Bacteria identified in Urine by Culture [facility] Start: 12-07-2022 Influenza vaccination Influenza Vacc ine (#1) [facility] Start: 07-30-2022 Hemolytic complement CH50 level [facility] Start: 07-30-2022 [facility] Start: 1989 Screening for malign ant neoplasm of cervix [facility] Start: 01-28-1980 Screening for malign ant neoplasm of cervix Pap Smear [facility] Start: 1959 Screening for malign ant neoplasm of colon [facility] C reactive protein [Mass/volume] in Serum or Plasma C-reactive protein Lab Routine 05/23/2023 6:33 AM EST [facility] Work Phone: Lipid 1996 panel - S kimberly or Plasma Lipid panel Lab Routine 05/23/2023 6:33 AM EST [facility] Patient Education Dependent Edema (DC) [facility] Work Phone: Patient referral [facility] Work Phone: Immunizations Immunization Date Immunization Notes Care Provider [facility] 12-27-2021 influenza virus vaccine, unspecified formulation ALLIE ZA [facility] 12-27-2021 Influenza, injectabl e, Madin [place] Canine Kidney, preservative free, quadrivalent [facility] 12-27-2021 pneumococcal 20-madeleine nt conjugate vaccine ALLIE ZA [facility] 03-13-2021 COVID-19 Vaccine Kit - Documentation Purposes Only Mau Ortiz Other [facility] Comment on above: Result Comment: 2022: [id number] 01-20-2021 influenza virus vaccine, unspecified formulation ALLIEZANE MENDENHALL [facility] 01-20-2021 influenza, injectabl e, quadrivalent, preservative free [facility] 06-10-2020 COVID-19 Vaccine Kit - Documentation Purposes Only Mau Ortiz Other [facility] Payers Date Payer Category Payer Medicare [facility] MEDICARE [facility] DUAL COMPLETE [id number] 2022-Present [address] [place] [address] [id number] 2022 Private Health Insurance [id number] 2017 [place] [facility] [place] [id number] 2017-Present [phone] [address] [place] [address] Medicaid [id number] 1959 Medicaid [id number] 1959 Medicare [id number] [id number] 1959 Self-pay [id number] 1959 Unknown [id number] 2.16.840.1.713042.3.579.2. 593 1959 Unknown [id number] 2.16.840.1.069206.3.579.2. 593 1959 Unknown [id number] 2.16.840.1.523951.3.579.2. 593 1959 Unknown [id number] 2.16.840.1.095154.3.579.2. 593 1959 Unknown [id number] 2.16.840.1.352800.3.579.2. 593 1959 Unknown [id number] 2.16.840.1.265012.3.579.2. 727 1959 Unknown [id number] 2.16.840.1.238076.3.579.2. 1259 1959 Unknown [id number] 2.16.840.1.226275.3.579.2. 1259 1959 Unknown [id number] 2.16.840.1.140545.3.579.2. 1259 1959 Unknown [id number] 2.16.840.1.185599.3.579.2. 1259 1959 Unknown [id number] 2.16.840.1.175197.3.579.2. 1259 Medicare [id number] 2.16.840.1.718012.19 Unknown [id number] 2.16.840.1.538011.3.579.2. 531 Unknown [id number] 2.16.840.1.638551.3.579.2. 531 Unknown [id number] 2.16.840.1.185771.3.579.2. 531 Unknown [id number] 2.16.840.1.035667.3.579.2. 531 Unknown [id number] 2.16.840.1.701917.3.579.2. 531 Unknown [id number] 2.16.840.1.411076.3.579.2. 531 Unknown [id number] 2.16.840.1.647649.3.579.2. 531 Unknown [id number] 2.16.840.1.941471.3.579.2. 531 Social History Date Type Detail Facility Start: 12-18-2022 End: 04-03-2023 Sex Assigned At [facility] Start: 1960 Sex Assigned At Female [facility] Start: 07-25-2022 End: 07-25-2022 Tobacco smoking status NHIS Smoker (finding) [facility] Start: 12-18-2022 End: 01-22-2023 Tobacco smoking status Ex-smoker (finding) [facility] End: 04-19-2022 History of tobacco use Cigarette Smoker [facility] Start: 12-18-2022 Tobacco use and exposure Smokeless tobacco non-user [facility] Start: 12-18-2022 Alcohol intake Lifetime non-d branden (finding) [facility] Start: 12-18-2022 End: 04-03-2023 History of Social function [facility] Start: 12-18-2022 Tobacco Comment Stopped smokin g 04/2022 [facility] Start: 09-18-2022 Alcohol Comment caffeine intak e: 2 cups daily of coffee, 1 can daily of pop [facility] Start: 1960 Sex Assigned At Not on file [facility] NEGATED: Highlighted rowStart: NINF History of tobacco use Passive smoker [facility] Functional Status Date Assessment Result Facility 01-22-2023 Functional Status N/A [facility] Clinical Notes 08-28-2021 to 05-21-2023 Telephone Encounter - Eagle Reddy MA - 05/21/2023 10:40 AM ESTTelephone Encounter - Eagle Reddy MA - 05/21/2023 10:40 AM EST Note Date & Type Note Facility 05-21-2023 Telephone encounter Note Patient called requesting a refill of hydrocodone to be sent to [facility] in [place]. [facility] 05-21-2023 Miscellaneous Notes Patient called requesting a refill of hydrocodone to be sent to [facility] in [place]. documented in this encounter [facility] 01-22-2023 Hospital Discharg e instructions Patient Education 01/22/2023 09:16:18 Urethral Dilation Urethral Dilation Urethral dilation is a procedure to stretch open (dilate) the urethra. The urethra is the tube that drains urine from the bladder out of the body. In women, the urethra opens above the vaginal opening. In men, the urethra opens at the tip of the penis. Urethral dilation is usually done to treat narrowing of the urethra (urethral stricture), which can make it difficult to pass urine. Urethral dilation widens the urethra so that you can pass urine normally. Urethral dilation is done through the urethral opening. There are no incisions made during the procedure. Tell a health care provider about: Any allergies you have. All medicines you are taking, including vitamins, herbs, eye drops, creams, and xjxg-[id number] medicines. Any problems you or family members have had with anesthetic medicines. Any blood disorders you have. Any surgeries you have had. Any medical conditions you have. Whether you are or may be . What are the risks? Generally, this is a safe procedure. However, problems may occur, including: Bleeding. Infection. A return of urethral stricture, which requires repeating the dilation procedure. Damage to the urethra, which may require reconstructive surgery. Allergic reactions to medicines. What happens before the procedure? Medicines Ask your health care provider about: Changing or stopping your regular medicines. This is especially important if you are taking diabetes medicines or blood thinners. Taking medicines such as aspirin and ibuprofen. These medicines can thin your blood. Do not take these medicines unless your health care provider tells you to take them. Taking ltgr-oko-kqiajpq medicines, vitamins, herbs, and supplements. General instructions Follow instructions from your health care provider about eating or drinking restrictions. Plan to have someone take you home from the hospital or clinic. If you will be going home right after the procedure, plan to have someone with you for 24 hours. Ask your health care provider what steps will be taken to help prevent infection. These may include: ?Washing skin with a germ-killing soap. ?Taking antibiotic medicine. What happens during the procedure? An IV may be inserted into one of your veins. You will be given one or more of the following medicines: ?A local anesthetic to numb your urethral opening. This will be applied as a gel that will also lubricate the urethral opening. ?A sedative to help you relax. A thin tube with a light and camera on the end (cystoscope) will be inserted into your urethra. Your urethra will be rinsed (irrigated) with a germ-free (sterile) water solution. Narrow parts of your urethra will be stretched open using a dilator tool. Your surgeon will start with a very thin dilator, then use wider dilators as needed. A thin tube with an inflatable balloon on the tip may be inserted into your urethra. The balloon may be inflated to help stretch your urethra open. Your urethra will be irrigated. The procedure may vary among health care providers and hospitals. What can I expect after the procedure? After the procedure, it is common to have: ?Burning pain when urinating. ?Blood in your urine. ?A need to urinate frequently. You will be asked to urinate before you leave the hospital or clinic. Your urine flow should improve within a few days. Follow these instructions at home: Medicines Take jobd-xfe-rqwtasc and prescription medicines only as told by your health care provider. If you were prescribed an antibiotic medicine, take it as told by your health care provider. Do not stop taking the antibiotic even if you start to feel better. Ask your health care provider if the medicine prescribed to you: ?Requires you to avoid driving or using heavy machinery. ?Can cause constipation. You may need to take these actions to prevent or treat constipation: ?Take pwcp-nri-vcuknhp or prescription medicines. ?Eat foods that are high in fiber, such as beans, whole grains, and fresh fruits and vegetables. ?Limit foods that are high in fat and processed sugars, such as fried or sweet foods. General instructions Do not drive for 24 hours if you were given a sedative during your procedure. If you were sent home with a small, lubricated tube (catheter) to help keep your urethra open, follow your health care provider's instructions about how and when to use it. Drink enough fluid to keep your urine pale yellow. Return to your normal activities as told by your health care provider. Ask your health care provider what activities are safe for you. Keep all follow-up visits as told by your health care provider. This is important. Contact a health care provider if: Your urine is cloudy and smells bad. You develop new bleeding when you urinate. You pass blood clots when you urinate. You have pain that does not get better with medicine. You have a fever. You have swelling, bruising, or discoloration of your genital area. This includes the penis, scrotum, and inner thighs for men, and the outer genital organs (vulva) and inner thighs for women. Get help right away if: You develop new bleeding that does not stop. You cannot pass urine. Summary Urethral dilation is a procedure to stretch open (dilate) the urethra. Urethral dilation is usually done to treat narrowing of the urethra (urethral stricture), which can make it difficult to pass urine. Ask your health care provider about changing or stopping your regular medicines before the procedure. After the procedure, it is common to have burning pain when urinating, blood in your urine, and a need to urinate frequently. This information is not intended to replace advice given to you by your health care provider. Make sure you discuss any questions you have with your health care provider. Document Revised: 05/07/2019 Document Reviewed: 05/07/2019 [employer] Patient Education 2022 [employer] Follow Up Care 01/21/2023 12:46:45 With:ZA DICKEY, ALLIE Venegas, URL Address: [address] [place] [address] [phone] When: Unknown Comments:sched cysto/UD after lung tx [facility] 01-18-2023 Evaluation note Encounter Date Diagnosis Assessment Notes Jan, Abdominal pressure (ICD-10 - R10.9) Jan, Dysuria (ICD-10 - R30.0) Discussed diagnosis and dipstick findings with patient. Patient brought in previous lab work, however, it showed a result of <10,000 mixed contaminants on culture results. Educated patient that this is not evident of UTI, however, it is the weekend, patient is symptomatic, and is unable to reach PCP. Dipstick shows trace protein, wbc. Will start patient on Keflex, advised to take as directed. Urine culture sent, will call with results in 2-5 days. Advised that at time of results, treatment plan may change. Once we get culture results, will forward on to PCP. Reviewed signs/symptoms that warrent immediate evaluation in ER. Patient verbalizes understanding and is agreeable with treatment plan [facility] Other 08-23-2023 Evaluation note* Encounter Date Diagnosis Assessment Notes Treatment Notes Treatment Clinical Notes Nov, Pulmonary nodules/lesions, multiple (ICD-10 - R91.8) [facility] Other 08-24-2022 Evaluation note* Encounter Date Diagnosis Assessment Notes Treatment Notes Treatment Clinical Notes Nov, Abnormal CT of the chest (ICD-10 - R93.89) [facility] Other 06-01-2022 Evaluation note* Encounter Date Diagnosis Assessment Notes Treatment Notes Treatment Clinical Notes Sep, Abnormal CT of the chest (ICD-10 - R93.89) [facility] Other 05-23-2022 Evaluation note* Encounter Date Diagnosis Assessment Notes Treatment Notes Treatment Clinical Notes August, Dysuria (ICD-10 - R30.0) August, Acute cystitis with hematuria (ICD-10 - N30.01) Take medication as directed. Urine analysis shows abnormalities today in office. Urine culture will be sent to lab. Will call with results if warranted. Increase fluid intake. Follow hygiene guidelines such as wiping front to back, avoid using perfumed lotions, bath beads, bubble bath. Recommend follow up with primary care provider after treatment completed to make sure infection has cleared. This is a 73-year-old female presents today at the urgent care for dysuria and urgency. She is well-appearing, no acute distress, and vitally stable. Signs and symptoms are most consistent with acute cystitis. I did consider more ominous diagnoses such as acute pyelonephritis, nephrolithiasis, and acute abdomen. However, given that she is afebrile, not tachycardic, tachypneic nontoxic in appearance, and does not have any abdominal pain, these other ominous diagnoses are unlikely. She is given strict return precautions. We will send out the specimen to be cultured. In the meantime, we will treat her with cephalexin and ondansetron for her nausea. [facility] Other Evaluation + Plan note No data available for this section [facility] evaluation noteNo InformationNort [employer] Other Evaluation noteNo assessment information available [facility] Work Phone: Evaluation note* Diagnosis Primary osteoarthritis involving multiple joints documented in this encounter [facility] N[facility]ative - Reported* Type Description Date Medical History lung cancer Medical History lung nodules Medical History anemia Medical History malabso Surgical History lung cancer- lung surgery 2009 Surgical History bowel resection Surgical History cholecystectomy Surgical History hysterectomy Surgical History back surgery Hospitalization History see above Hospitalization History [facility] chest pain [facility] Other Hiszzdf general Narrative - Reported* Type Description Date Medical History lung cancer Medical History lung nodules Medical History anemia Medical History malabso Medical History anxiety Medical History kidney stones Surgical History lung cancer- lung surgery 2010 Surgical History bowel resection Surgical History cholecystectomy Surgical History hysterectomy Surgical History back surgery Hospitalization History see above Hospitalization History ER [facility] chest pain [facility] Other Progress note No data available for this section [facility] [place] Chief Complaint and Reason for Visit Chief Complaint E53.8 Z86.73 R53.83 Chief Complaint sob, bi lat leg swee ling Chief Complaint sob, bi lat leg swee ling R76.0/ELEV ESR/OA/MEDS Chief Complaint Z79.899 E53.8 z79.899 r60.9 m15.0/r70.0/z79.899 Abdominal pressure Chief Complaint 3 Mo F/U Pulm Nodule s M15.0 Z79.899 Advance Directives No Advanced Directives Records Found Advance Directive Response Recorded Date/ Time Advance Directives No March 1:30pm Advance Directive Response Recorded Date/ Time Advance Directives No March 12:30pm Summary Purpose Family History No Family History Records Found Relationship Condition Age at Onset Recorded Date/T ebony father Unknown Not Specified Unknown Additional Source Comments REASON FOR VISIT (unrecogniz ed section and content) Reason Onset Date Comments Med Refill 05/21/2023 Care Teams (unrecognized sec tion and content) Team Status: Inactive Member Role Status Dates Demarcus Del Valle MD Primary Care Provider Active Raleigh Suggs MD Attending Provider Active Team Status: Active Member Role Status Dates Demarcus Del Valle MD Primary Care Provider Active Team Status: Active Member Role Status Dates NON STAFF Primary Care Provider Active Team Status: Inactive Member Role Status Dates NON STAFF Primary Care Provider Active Michelle Fernandez APRN Emergency Provider Active Team Status: Inactive Member Role Status Dates NON STAFF Primary Care Provider Active Phong Marquez MD Attending Provider Active Team Status: Inactive Member Role Status Dates NON STAFF Primary Care Provider Active Raleigh Suggs MD Attending Provider Active Team Status: Inactive Member Role Status Dates Colleen Melendrez APRN Attending Provider Active Team Status: Inactive Member Role Status Dates NON STAFF Primary Care Provider Active Debo Gates NP-C Attending Provider Active Machine Shop Inspector Relationship Specialty Start Date End Date Raleigh Suggs MD [address] [place] [phone] PCP - General Internal Medicine 09/17/22 Mau Ortiz MD [address] [phone] Referring Physician Pulmonary Disease 03/26/23 Brian Marquez MD [address] [phone] Referring Physician Rheumatology 04/03/23 Allie Mendenhall PA-C [address] [place] [address] [phone] Urology 03/26/23 Machine Shop Inspector Relationship Specialty Start Date End Date Raleigh Suggs MD [address] [place] [phone] PCP - General Internal Medicine 09/17/22 Mau Ortiz MD [address] [phone] Referring Physician Pulmonary Disease 03/26/23 Brian Marquez MD [address] [phone] Referring Physician Rheumatology 04/03/23 Allie Mendenhall PA-C [address] [place] [phone] Urology 03/26/23 Machine Shop Inspector Relationship Specialty Start Date End Date Raleigh Suggs MD [address] [place] [address] PCP - General Internal Medicine 09/17/22 Mau Ortiz MD [address] [phone] Referring Physician Pulmonary Disease 03/26/23 Brian Marquez MD [address] [phone] Referring Physician Rheumatology 04/03/23 Allie Mendenhall PA-C [address] [place] [address] [phone] Urology 03/26/23 Team Status: Active Member Role Status Dates Raleigh Suggs MD Primary Care Provider Active Team Status: Inactive Member Role Status Dates Mau Ortiz MD Attending Provider Active Start: March 05, 2023 End: March 05, 2023 Team Status: Inactive Member Role Status Dates Raleigh Suggs MD Primary Care Provide r, Attending Provider Active Start: May 23, 2023 End: May 23, 2023 Goals (unrecognized section and content) Goals may be documented in a n alternate section INFORMATION SOURCE (unrecogn ized section and content) DATE CREATED AUTHOR 04/04/2022 [facility] DATE CREATED AUTHOR AUTHOR'S ORGANIZ ATION 04/19/2022 [facility] DATE CREATED AUTHOR AUTHOR'S ORGANIZ ATION 02/08/2023 [facility] DATE CREATED AUTHOR AUTHOR'S ORGANIZ ATION 05/13/2023 [facility] DATE CREATED AUTHOR AUTHOR'S ORGANIZ ATION 05/24/2023 [facility] FOR RECORDS PERTAINING TO PATIENTS WHO ARE OR HAVE BEEN ENROLLED IN A CHEMICAL DEPENDENCY/SUBSTANCEABUSE PROGRAM, SOME INFORMATION MAY BE OMITTED. This clinical summary was aggregated from multiple sources. Caution should be exercised in using it in the provision of clinical care. This summary normalizes information from multiple sources, and as a consequence, information in this document may materially change the coding, format and clinical context of patient data. In addition, data may be omitted in some cases. CLINICAL DECISIONS SHOULD BE BASED ON THE PRIMARY CLINICAL RECORDS. [employer] [facility]. provides no warranty or guarantee of the accuracy or completeness of information in this document.
== END 2023-05-27 10:54 | disposition home or self-care (01) ==
LOC: MAMMO 10:53
PROVIDERS: PCP Internal Medicine; Visit Provider Internal Medicine
DX: Z12.31 Encounter for screening mammogram for malignant neoplasm of breast (principal); Z80.1 Family history of malignant neoplasm of trachea, bronchus and lung
CPT/HCPCS: 77063; 77067

== ENCOUNTER 2023-08-15 10:54 | Outpatient (OUT) | payer MEDICARE, MEDICAID, SELFPAY ==
--- NOTE | 2023-08-15 10:58 | CT_ITS ---
[address] [address] Patient Name: SCOTT HERNANDEZ MRN: [id number] date: 1960 Sex: F Assigned Patient Location: CT Current Patient Location: Accession/Order Number: [id number] Exam Date: 08/15/2023 11:09 Report Date: 08/16/2023 07:17 At the request of: ROSA LEDBETTER Procedure: CT chest wo con EXAMINATION: CT chest wo con HISTORY: Pulmonary Nodules/lesions multiple R91.8 ; follow-up COMPARISON: CT chest 02/05/2023 TECHNIQUE: Multi-planar CT images were obtained without and/or with IV contrast as indicated by examination type. Axial, Coronal, and Sagittal images. Dose reduction techniques were achieved by using automated exposure control and/or adjustment of mA and/or kV according to patient size and/or use of iterative reconstruction technique. FINDINGS: LUNGS: Irregular soft tissue mass adjacent posterior medial right chest wall and T4 vertebral body, 4.1 x 2.3 x 4.5 cm with suspected represent neoplasm. Posterior chest wall between the 5th and 6th ribs. Persistent thin 9 mm diameter/disclike opacity adjacent the right minor fissure. Moderate emphysematous changes bilaterally. PLEURA: No pleural effusion or pneumothorax. VASCULATURE: No abnormality. MITCH: No mass or adenopathy. MEDIASTINUM: No mass or adenopathy. CARDIAC: No enlargement, pericardial thickening, or significant calcification. AORTA: No aneurysm or dissection. CHEST WALL: No mass or axillary adenopathy. BONES: New mild compression fracture involving superior endplate of T10. LIMITED ABDOMEN: No suspicious findings Limited images of the upper abdomen. OTHER: Negative. CT/CT chest wo con IMPRESSION: 1. Interval increase in size of posterior right upper lobe mass with penetration into the chest wall between the 5th and sixth ribs suspected represent neoplasm. No new nodules or lymphadenopathy. 2. Discoid opacity adjacent right minor fissure favors chronic scarring. 3. Moderate emphysematous changes bilaterally. 4. New mild compression fracture of T10. Electronically authenticated by: SRINIVASAN KHALIL Date: 08/16/2023 07:17
== END 2023-08-15 10:55 | disposition home or self-care (01) ==
LOC: CT 10:54
PROVIDERS: PCP Internal Medicine; Visit Provider Internal Medicine Critical Care Medicine
DX: R91.8 Other nonspecific abnormal finding of lung field (principal)
CPT/HCPCS: 71250